=== PATIENT | female | born 1965 | race Caucasian/White ===

== ENCOUNTER 2018-06-06 13:15 | Inpatient (IN) ==
[2018-06-06] MEDS ORDERED: NS 1,000 ML IV ONE ×2 (14:43→19:34)
--- NOTE | 2018-06-06 15:05 | PROVIDER DOCUMENTATION ---
This chart was entered by Nash Schaefer Scribe, acting as scribe for Tomasa Pickard CRNP. HPI-Abdominal Pain/GI Problem - General Chief Complaint: Abdominal Pain Stated Complaint: ABDOMEN Time Seen by Provider: 06/06/18 14:31 Source: patient Allergies/Adverse Reactions: Patient Allergies Allergy/AdvReac Type Severity Reaction Status Date / Time acetaminophen [From Lortab] Allergy HIVES Verified 06/04/18 16:34 amoxicillin Allergy RASH Verified 06/04/18 16:34 cephalexin monohydrate * Allergy RASH Verified 06/04/18 16:34 [From Keflex] clarithromycin [From Biaxin] Allergy HIVES Verified 06/04/18 16:34 hydrocodone bitartrate * Allergy HIVES Verified 06/04/18 16:34 [From Lortab] ibuprofen [From Motrin] Allergy RASH Verified 06/04/18 16:34 Latex, Natural Rubber Allergy RASH Verified 06/04/18 16:34 lidocaine HCl * Allergy SWELLING Verified 06/04/18 16:34 [From Xylocaine] loracarbef [From Lorabid] Allergy RASH Verified 06/04/18 16:34 risperidone [From Risperdal] Allergy SHORTNESS Verified 06/04/18 16:34 OF BREATH fentanyl AdvReac NAUSEA/VOMI Verified 06/04/18 16:34 TING Home Medications: Home Medication List Medication Instructions Recorded Confirmed Last Taken Type Alprazolam [Xanax] 2 mg PO TID 08/25/15 06/04/18 06/04/18 12:00 History Ondansetron HCl [Zofran] 4 mg PO Q4H PRN PRN #10 tablet 10/18/17 06/04/18 06/03/18 Rx Docusate Sodium 100 mg PO QHS 06/04/18 06/04/18 06/03/18 History Doxycycline Hyclate 100 mg PO QHS 06/04/18 06/04/18 06/03/18 History Gabapentin 100 mg PO TID 06/04/18 06/04/18 06/04/18 12:00 History Hydromorphone [Dilaudid] 2 mg PO Q3H PRN PRN 3 Days #20 tab 06/04/18 Unknown Rx Morphine Sulfate 15 mg PO BID 06/04/18 06/04/18 06/04/18 10:00 History Prochlorperazine [Compazine] 10 mg PO Q4HR 06/04/18 06/04/18 06/04/18 History Promethazine [Phenergan] 25 mg PO Q6H PRN PRN 06/04/18 06/04/18 06/03/18 History - History of Present Illness-ABD Nature of Presenting Problems: Pt is a 52 y/o F presents to the ED from Dr Sanders office with abdominal pain with hx of colon cancer. Pt reports her last BM was yesterday but it was diarrhea. Abdominal Pain Onset Location: reports: generalized abdomen Pain Radiation: reports: no radiation Quality of Pain: reports: aching Severity in ED: reports: severe Onset/Duration: reports: 3 days ago Timing: reports: still present, getting worse Exposure to sick contacts?: No Modifying Factors: improves with: nothing Associated Symptoms: reports: nausea, vomiting. denies: fever/chills Last BM: 24 hours ago Dark Stools Present?: reports: none noticed Rectal Bleeding: reports: none # of Diarrhea Episodes: 1 Review of Systems - Adult - REVIEW OF SYSTEMS - ADULT Constitutional: denies: chills, fever Eyes: reports: no symptoms reported Ears, Nose, Mouth & Throat: denies: ear pain, throat pain Cardiovascular: reports: no symptoms reported Respiratory: denies: cough, shortness of breath Gastrointestinal: reports: abdominal pain, diarrhea, nausea, vomiting Genitourinary: denies: dysuria, discharge Musculoskeletal: denies: back pain, neck pain Integumentary: reports: no symptoms reported Neurological: denies: dizziness/vertigo, headache/migraines Psychiatric: reports: no symptoms reported Endocrine: reports: no symptoms reported Hematologic/Lymphatic: reports: no symptoms reported Allergic/Immunologic: reports: no symptoms reported All Other Systems: Reviewed and Negative Past History - Adult - PAST MEDICAL HISTORY-ADULT Review of Records: reports: Old Records Reviewed, Nursing Assessment Review, Medications Reviewed Major Childhood Illnesses: reports: denies history Cardiovascular: reports: denies history, HTN Respiratory: reports: denies history Gastrointestinal: reports: denies history Obstetrical/Gynecological: reports: denies history Genitourinary: reports: denies history Musculoskeletal: reports: denies history Neurological: reports: denies history Psychiatric: reports: bipolar Endocrine/Immune: reports: denies history, thyroid disorder Other Conditions: reports: other cancer (colon) - PRIOR SURGERIES/PROCEDURES Surgical/Procedure History: reports: BTL - IMMUNIZATION STATUS Childhood Immunizations: See Nurse Assessment Flu Vaccine: See Nurse Assessment - FAMILY HISTORY Family History: reviewed, not pertinent - SOCIAL HISTORY Smoking: cigarettes Substance Use: marijuana Living Situation: family Physical Exam-General - PHYSICAL EXAM-ADULT Initial Vital Signs Reviewed: Yes - CONSTITUTIONAL General Appearance: appears well, alert, no apparent distress - EYES Eyes: PERRL/EOMI, pink conjunctivae - HEAD, EARS, NOSE, MOUTH & THROAT HENMT: moist mucous membranes, normal ENT inspection, pharynx normal - NECK Neck: non-tender, full range of motion, supple, normal inspection - RESPIRATORY Respiratory: lungs clear, normal breath sounds - CARDIOVASCULAR Cardiovascular: normal peripheral pulses, regular rate, rhythm - GASTROINTESTINAL (ABDOMEN) Abdominal Exam: guarding, tenderness. negative: normal bowel sounds (absent) - MUSCULOSKELETAL Back Exam: normal inspection, no CVA tenderness, no vertebral tenderness Extremity: normal range of motion, non-tender, normal gait, normal inspection - SKIN Integumentary: normal color, normal turgor, warm/dry - PSYCHIATRIC Psych/Mental Status: normal mood/affect, normal thought content, normal thought process, oriented x 3 Progress - PLAN OF CARE/RESULTS Progress/Plan/Lab Results: Vital Signs - 8 hr 06/06/18 13:35 06/06/18 13:55 Temperature 98.2 F Pulse Rate 100 H 88 Respiratory Rate 20 16 Blood Pressure 124/85 110/77 O2 Sat by Pulse Oximetry 99 100 Laboratory Tests 06/06/18 06/06/18 06/06/18 15:02 15:02 15:02 WBC 2.90 L RBC 3.55 L Hgb 11.1 L D Hct 34.3 L MCV 96.6 MCH 31.3 H MCHC 32.4 L RDW Std Deviation 16.8 H Plt Count 98 L MPV 12.0 H Immature Gran % (Auto) 0.0 Neut % (Auto) 46.9 Lymph % (Auto) 45.5 Barton % (Auto) 6.6 Eos % (Auto) 0.7 Baso % (Auto) 0.3 Immature Gran # (Auto) 0.00 Neut # (Auto) 1.36 L Lymph # (Auto) 1.32 Barton # (Auto) 0.19 Eos # (Auto) 0.02 Baso # (Auto) 0.01 Sodium 133 L Potassium 3.2 L D Chloride 98 Carbon Dioxide 21 L Anion Gap 14 BUN 7 L Creatinine 0.2 L Estimated GFR/1.73 m2 > 60 BUN/Creatinine Ratio 35 Glucose 86 Calculated Osmolality 264 Calcium 8.2 L Total Bilirubin 0.29 AST 22 ALT 13 Alkaline Phosphatase 71 Total Protein 5.7 L Albumin 2.9 L Globulin 2.8 Albumin/Globulin Ratio 1.0 Lipase 13 Urine Source CLEAN CATCH Urine Color YELLOW Urine Turbidity HAZY Urine pH 7.0 Ur Specific Nunda 1.015 Urine Protein 50 A Ur Glucose (Stick) NEGATIVE Ur Ketones (Stick) 60 A Urine Blood NEGATIVE Urine Nitrite NEGATIVE Urine Bilirubin NEGATIVE Urobilinogen Dipstick NORMAL Urine Leukocytes SMALL A Urine WBC (Auto) <10 Urine RBC (Auto) <10 U Epithel Cells (Auto) >10 A Urine Bacteria (Auto) 1+ Urine Crystals Not Reportable Small Round Cells Not Reportable Urine Casts GRANULAR PRESENT Urine Yeast-like Cells Not Reportable Discussed results and plan of care with patient. Patient agrees with plan and verbalizes understanding. Result Diagrams: 06/06/18 15:02 06/06/18 15:02 - CT/MRI 1 CT Study: Abdomen, Pelvis ([facility] [address], [address], [place] [address] Department of Imaging Patient: ELIZABETH FAJARDO Date: 06/06/18MR#: [id number] : 1965ADM Status: REG [facility]#: [id number] Age/Sex: 52/FRoom/Bed: Loc: ED Ordering Physician: Tomasa Pickard Family Physician: Nikkie Nicholson MD Reason for Procedure: abd pain Signed EXAM: CT ABD/PELVIS W/IV CONT ONLY HISTORY: abd pain TECHNIQUE: CT abdomen and pelvis with intravenous contrast. COMPARISON: 09/30/2017 FINDINGS: There is a small amount of ascites about the liver and spleen. No focal hepatic or splenic abnormality. The gallbladder has been removed. Normal pancreas, adrenal glands, and kidneys. No hydronephrosis. No aortic aneurysm. There is prominent omental thickening on the current exam which was not previously present. There are multiple fluid-filled loops of small bowel and colon. No enlarged lymph nodes. The uterus has been removed. No pelvic mass. The urinary bladder is m oderately distended and is normal. Small to moderate amount of free fluid is present in the pelvis. IMPRESSION: 1.Worsening omental thickening with worsening small volume amount of ascites concerning for malignancy. 2.Ileus versus partial obstruction 3.Cholecystectomy 4.Hysterectomy This exam was performed using automated exposure control, adjustment of mA or kV according to patient size, and/or use of iterative reconstruction technique. Electronically signed by Elmer Britton 06/06/2018 5:05 PM 06/06/18 1705 Interpreting Physician: Elmer Britton MD Dictated Date/Time: 06/06/18 1700 cc: Tomasa Pickard; Nikkie Nicholson MD) CT Results: See note - CONSULTS/PCP/HOSPITALIST Notification #1 *Consult/PCP/Hospitalist*: Dr. Hopper Time Discussed: 17:17 Reason/Comments: Consult Consult Disposition: other (See if the patient wants to see Dr. Almeida again but if it doesn't matter he will be happy to see her in the hospital.) #2 Consult: Shellie Dash Time Discussed: 17:22 Reason/Comments: Admission Consult Disposition: Will see in ED, Admit Departure - Departure Date of Disposition Decision: 06/06/18 Time of Disposition Decision: 17:15 DIAGNOSIS: Abdominal pain Qualifiers: Abdominal location: generalized Qualified Code(s): R10.84 - Generalized abdo margareth pain Disposition: ADMITTED INPATIENT 09 Certified Medical Emergency: Emergent Condition: Stable Referrals and Follow-Ups: Nikkie Nicholson MD [Primary Care Provider] - - Critical Care Note This patient required my direct & personal management of CC.: No Attestation - Physician/ EVELIA Attestation Patient care was provided by Advanced Practice Provider:: Yes Advanced Practice Provider:: Tomasa Pickard Advanced Practice Provider documentation review:: The Mid-level provider documentation, treatment plan and medical decision making was reviewed by the physician who agrees with all treatment and medical decision making by the MLP. The physician spent face to face time with patient:: No Advanced Practice Provider documentation review:: Supervising physician onsite and consulted in the evaluation and care of this patient. The physician did not have a face to face encounter with the patient. This chart was documented by the indicated scribe, (Nash Schaefer Scribe) and accurately reflects the services I performed and decisions made by , Tomasa Pickard CRNP, as attested by the provider's signature.
[2018-06-06 15:12] LABS: URINE SOURCE CLEAN CATCH
[2018-06-06 15:19] LABS: BASO# 0.01 X1000 (0.0-0.2); BASO% 0.3 % (0.0-0.8); EOS# 0.02 X1000 (0.0-0.7); EOS% 0.7 % (0.0-10.0); HEMATOCRIT 34.3 % (37.0-47.0); HEMOGLOBIN 11.1 g/dL (12.0-16.0); LYMPH# 1.32 X1000 (1.2-3.4); LYMPH% 45.5 % (20.5-51.1); MCH 31.3 PG (27-31); MCHC 32.4 g/dL (33-37); MCV 96.6 FL (81-99); MONO# 0.19 X1000 (0.11-0.59); MONO% 6.6 % (1.7-9.3); NEUT# 1.36 X1000 (1.4-6.5); NEUT% 46.9 % (42.2-75.2); PLT 98 X1000 (130-400); RBC 3.55 XMIL (4.2-5.4); RDW 16.8 % (11.5-14.5)
[2018-06-06 15:28] LABS: BILIRUBIN URINE NEGATIVE (NEGATIVE); BLOOD URINE NEGATIVE (NEGATIVE); COLOR YELLOW; GLUCOSE URINE NEGATIVE (NEGATIVE); KETONE URINE 60 mg/dL (NEGATIVE); LEUKOCYTES URINE SMALL (NEGATIVE); NITRITE URINE NEGATIVE (NEGATIVE); PROTEIN URINE 50 mg/dL (NEGATIVE); SP GRAVITY URINE 1.015; TURBIDITY URINE HAZY (CLEAR); UR EPITHELIAL CELLS >10 /HPF (<10); URINE BACTERIA 1+ /HPF; URINE RBC <10 /HPF (<10); URINE WBC <10 /HPF (<10); UROBILINOGEN URINE NORMAL (NORMAL)
[2018-06-06 15:31] LABS: URINE CASTS GRANULAR PRESENT
[2018-06-06 15:37] LABS: AGAP 14; ALBUMIN 2.9 g/dL (3.5-5.0); ALKALINE PHOSPHATASE 71 U/L (32-104); BUN 7 mg/dL (8-22); CALCIUM 8.2 mg/dL (8.8-10.2); CHLORIDE 98 mmol/L (98-107); COSMO 264; CREATININE 0.2 mg/dL (0.5-0.9); ESTIMATED GFR > 60; GLUCOSE 86 mg/dL (70-104); GOT 22 U/L (10-30); GPT 13 U/L (10-36); LIPASE 13 U/L (13-60); POTASSIUM 3.2 mmol/L (3.5-5.1); SODIUM 133 mmol/L (136-145); TCO2 21 mmol/L (25-35); TOTAL BILIRUBIN 0.29 mg/dL (0.20-1.00); TOTAL PROTEIN 5.7 g/dL (6.3-8.3)
[2018-06-06] MEDS ORDERED: ZOFRAN IV ONE (16:44)
[2018-06-06] MEDS ORDERED: DILAUDID IV ONE ×2 (16:44→18:11)
--- NOTE | 2018-06-06 17:08 | Diag Imaging Result Doc PS360 ---
EXAM: CT ABD/PELVIS W/IV CONT ONLY HISTORY: abd pain TECHNIQUE: CT abdomen and pelvis with intravenous contrast. COMPARISON: 09/30/2017 FINDINGS: There is a small amount of ascites about the liver and spleen. No focal hepatic or splenic abnormality. The gallbladder has been removed. Normal pancreas, adrenal glands, and kidneys. No hydronephrosis. No aortic aneurysm. There is prominent omental thickening on the current exam which was not previously present. There are multiple fluid-filled loops of small bowel and colon. No enlarged lymph nodes. The uterus has been removed. No pelvic mass. The urinary bladder is moderately distended and is normal. Small to moderate amount of free fluid is present in the pelvis. IMPRESSION: 1.Worsening omental thickening with worsening small volume amount of ascites concerning for malignancy. 2.Ileus versus partial obstruction 3.Cholecystectomy 4.Hysterectomy This exam was performed using automated exposure control, adjustment of mA or kV according to patient size, and/or use of iterative reconstruction technique. Electronically signed by Elmer Britton 06/06/2018 5:05 PM
[2018-06-06] MEDS ORDERED: PROTONIX IV ONE (18:11)
[2018-06-06] MEDS ORDERED: SODIUM CHLORIDE 0.9% INJ ONE ×2 (18:11→23:48)
[2018-06-06] MEDS ORDERED: POTASSIUM CHLORIDE 20 MEQ/SWI 20 MEQ/100 ML IVPB IV ONE (19:34)
--- NOTE | 2018-06-06 20:08 | HISTORY AND PHYSICAL ---
PRIMARY CARE PROVIDER: Ronny Kee MD TRAINS SERVICE CONDUCTOR: Low Ojeda MD GENERAL SURGEON: Theo Florian MD CHIEF COMPLAINT: Abdominal pain, nausea and vomiting. HISTORY OF PRESENT ILLNESS: Ms. Garcia is a 52-year-old female who carries a past medical history of bipolar disorder, prediabetes, irritable bowel syndrome, hypothyroidism and hyperlipidemia. Diagnosed with a right colon cancer with multiple positive nodes back in 09/2017. She underwent an exploratory laparotomy with a right colectomy, with ileotransverse colostomy with Dr. Florian. She has been undergoing chemotherapy with Dr. Ojeda. Her last chemotherapy was this past Tuesday. She reports that she has been having chronic abdominal pain; however, it has worsened over the last few weeks. She went to see Dr. Ojeda today. She was referred to the ER. She was found on CT imaging to have worsening omental thickening and worsening small-volume amount of ascites, concerning for malignancy; ileus versus partial small-bowel obstruction; cholecystectomy and hysterectomy. She was found have a white count of 2, hemoglobin and hematocrit of 11 and 34, and a platelet count of 98,000. Sodium 133, potassium 3.2, BUN 7, creatinine 0.2. She will be admitted for ileus versus partial small bowel obstruction. Dr. Florian will see her in the a.m. as well as Dr. Ojeda. We will continue on IV fluids. Continue NPO. Pain and nausea and vomiting management. PAST MEDICAL HISTORY: 1. Right colon cancer with multiple positive nodes. 2. Bipolar disorder. 3. Prediabetes. 4. Irritable bowel syndrome. 5. Hypothyroidism. 6. Hyperlipidemia. PAST SURGICAL HISTORY: Exploratory laparotomy, right colectomy with ileotransverse colostomy, appendectomy, cholecystectomy, hysterectomy. SOCIAL HISTORY: She lives with her boyfriend. She smokes 1 pack of cigarettes per day. Occasional alcohol. Daily marijuana user, only in small amounts. She has not worked in the last 15 years. She is disabled from her bipolar disorder. FAMILY HISTORY: Father at the age of 42 from myocardial infarction. Mother had a valve replacement. ALLERGIES: [place] causes hives. Amoxicillin causes a rash. Keflex causes a rash. Biaxin causes hives. Motrin, unknown. Latex, rash. Xylocaine, swelling. Lortab, rash. MEDICATIONS: Home medications have not been reconciled. REVIEW OF SYSTEMS: A 14-point review of systems was completed and negative except for those mentioned in the HPI. The patient denies any shortness of breath, chest pain, palpitations, fever or chills. PHYSICAL EXAMINATION: VITAL SIGNS: Temperature is 98.2 degrees, heart rate 82, respirations 15, blood pressure 117/77, O2 is 97% on room air. GENERAL: Ms. Garcia is a pleasant 52-year-old female who is lying on the stretcher in the ER. Family member at bedside. No acute distress. HEENT: Atraumatic, normocephalic. PERRL. NECK: Supple. Trachea midline. CV: S1, S2 appreciated. No murmurs, gallops or rubs noted. No JVD. No lower extremity edema. PULMONARY: Bilateral breath sounds, clear. No wheezing, no rales or rhonchi noted. ABDOMEN: Soft but tender throughout. Hypoactive bowel sounds. EXTREMITIES: No clubbing, no cyanosis. NEUROLOGIC: Alert and oriented x4. Follows commands. Moves all extremities. DIAGNOSTIC DATA: Abdomen and pelvis CT: Worsening omental thickening with worsening small-volume amount of ascites concerning for malignancy; ileus versus partial obstruction; cholecystectomy; hysterectomy. LABORATORY DATA: White count 2.90, hemoglobin and hematocrit 11 and 43, platelet count is 98,000. Sodium 133, potassium 3.2, BUN 7, creatinine 0.2, blood glucose is 86, albumin 2.9. Urinalysis is negative for nitrites. ASSESSMENT AND PLAN: 1. Ileus versus partial small-bowel obstruction, with abdominal pain, mild nausea and vomiting. The patient will be provided with antiemetics and pain medication. We will make her NPO, continue with aggressive intravenous fluid hydration. Consult Dr. Florian in the a.m. Emergency department physician already talked to Dr. Hopper. The patient has seen Dr. Florian in the past and would like to continue for him to follow her. She does not require an nasogastric tube at this time. She is well controlled with antiemetics. 2. Right colon cancer, on chemotherapy. We will place her in a private room. She is still currently receiving chemotherapy. Her last dose was last Tuesday. We will make Dr. Ojeda aware that she was admitted to the hospital. Continue to follow his recommendations. She does have a low white count, however, she is not febrile or appear to have any active infections. We will continue to monitor. 3. Mild hyponatremia. We will continue with intravenous fluids. 4. Hypokalemia. We will attempt to replenish intravenously. Again, the patient is NPO. Continue to monitor. 5. Clinical dehydration. Again, we will continue with aggressive hydration. 6. Bipolar disorder. We will restart home medications when she is taking in oral. 7. Irritable bowel syndrome. Aware. 8. Hypothyroidism. Hopefully we can resume her Synthroid soon. 9. Hyperlipidemia. 10. Hypertension. 11. Chronic tobacco and marijuana use in the past. The patient will need continued education on cessation daily. 12. Chronic abdominal pain. Aware. We will continue with intravenous Dilaudid until she is taking p.o. 13. Further recommendation to follow physician evaluation, laboratory and diagnostic data. Dictated by MARISSA West for Ronni Dash MD cc: MD Low Garcia MD Martha Read Agree with above. the following is my own face to face assessment. Patient with acute on chronic abd pain. found to have SBO and worsening omental malignancy on scan here. abdomen with mild diffuse tenderness and bowel sounds hypoactive on exam. will treat conservatively and monitor. MTDD
[2018-06-06] MEDS: ZOFRAN IV PRN (22:13)
[2018-06-06] MEDS: DILAUDID IV PRN (22:14)
[2018-06-06] MEDS: BENADRYL IV PRN (23:40)
[2018-06-06] MEDS ORDERED: PHENERGAN IV ONE (23:48)
[2018-06-07] MEDS: ZOFRAN IV PRN (05:45)
[2018-06-07 06:59] LABS: BASO# 0.01 X1000 (0.0-0.2); BASO% 0.3 % (0.0-0.8); EOS# 0.05 X1000 (0.0-0.7); EOS% 1.6 % (0.0-10.0); HEMATOCRIT 36.8 % (37.0-47.0); HEMOGLOBIN 11.7 g/dL (12.0-16.0); LYMPH# 1.17 X1000 (1.2-3.4); LYMPH% 37.9 % (20.5-51.1); MCHC 31.8 g/dL (33-37); MCV 97.4 FL (81-99); MONO# 0.22 X1000 (0.11-0.59); MONO% 7.1 % (1.7-9.3); MPV 11.8 FL (7.4-10.4); NEUT# 1.64 X1000 (1.4-6.5); NEUT% 53.1 % (42.2-75.2); PLT 104 X1000 (130-400); RBC 3.78 XMIL (4.2-5.4); RDW 16.7 % (11.5-14.5); WBC 3.09 X1000 (4.8-10.8)
--- NOTE | 2018-06-07 07:09 | Diag Imaging Result Doc PS360 ---
EXAM: CHEST-PORTABLE 06/07/2018 HISTORY: follow up TECHNIQUE: AP portable at 0553 COMMENT: There is less apparent atelectasis in the left lower lobe than on 06/04/2018. Otherwise there has been no significant change in the appearance of the chest. IMPRESSION: Improved left lower lobe atelectasis. Electronically signed by Marc Chowdhury 06/07/2018 7:07 AM
[2018-06-07 07:17] LABS: AGAP 16; ALB/GLOB RATIO 1.3; ALKALINE PHOSPHATASE 71 U/L (32-104); BUN 4 mg/dL (8-22); CALCIUM 8.3 mg/dL (8.8-10.2); CHLORIDE 102 mmol/L (98-107); COSMO 267; CREATININE 0.4 mg/dL (0.5-0.9); ESTIMATED GFR > 60; GLUCOSE 64 mg/dL (70-104); GOT 18 U/L (10-30); GPT 11 U/L (10-36); MAGNESIUM 1.6 mg/dL (1.5-2.7); POTASSIUM 3.4 mmol/L (3.5-5.1); SODIUM 136 mmol/L (136-145); TCO2 18 mmol/L (25-35); TOTAL BILIRUBIN 0.34 mg/dL (0.20-1.00); TOTAL PROTEIN 5.3 g/dL (6.3-8.3)
--- NOTE | 2018-06-07 07:20 | Diag Imaging Result Doc PS360 ---
EXAM: KUB ABDOMEN 06/07/2018 HISTORY: follow up SBO vs illeus TECHNIQUE: KUB COMMENT: There are distended small bowel loops in the left upper quadrant. There is very little visible colonic gas in the stomach is not distended. There is gas in the rectum versus the urinary bladder. This was not the case on the previous study of 06/04/2018. There is a neurostimulator seen over the right pelvis. The lead is on the left side of the sacrum. There is no evidence of acute bony abnormality. IMPRESSION: Localized ileus in the left upper quadrant versus early small bowel obstruction. Electronically signed by Marc Chowdhury 06/07/2018 7:18 AM
[2018-06-07] MEDS: DILAUDID IV PRN (07:30)
[2018-06-07] MEDS ORDERED: DESYREL PO PRN (10:18)
[2018-06-07] MEDS: COMPAZINE IV PRN ×2 (11:37→20:18)
[2018-06-07] MEDS ORDERED: SODIUM CHLORIDE 0.9% INJ PRN (13:10)
[2018-06-07] MEDS ORDERED: ZOFRAN IV PRN (13:10)
[2018-06-07] MEDS ORDERED: BENADRYL IV PRN (13:10)
[2018-06-07] MEDS ORDERED: NARCAN IV PRN ×2 (13:10→13:18)
[2018-06-07] MEDS: POTASSIUM CHLORIDE 20 MEQ/SWI 20 MEQ/100 ML IVPB IV SCH ×2 (14:01→17:37)
--- NOTE | 2018-06-07 14:04 | HEMO/ONC CONSULTATION ---
DATE: 06/07/2018 ADMITTING PHYSICIAN: Dr. Ronni Dash. REQUESTING PHYSICIAN: Dr. Ronni Dash. We appreciate this consult. CHIEF COMPLAINT: Colon cancer. HISTORY OF PRESENT ILLNESS: Ms. Emily Garcia is a very pleasant, 52-year-old female well known to Dr. Ojeda with a history of metastatic colon cancer with progression of disease. She is currently on irinotecan and Erbitux. Her next treatment will be cycle 3, dose 1, due on June 13. The patient has recently been experiencing nausea, vomiting, and abdominal pain. She was seen in clinic the day of admission secondary to acute abdominal pain with a palpable mass in the periumbilical region. The patient had been experiencing 2 to 3 days of nausea, vomiting, an inability to keep anything down, and a lack of being able to pass gas or bowel movement. Upon physical examination, the patient did have positive rebound and guarding with exceptional periumbilical tenderness. Again, palpable mass was observed approximately 1 to 2 cm in diameter, questionably related to a periumbilical hernia with incarcerated bowel. The patient was highly encouraged to present to [facility] Emergency Department. Report was called to the emergency department RN with a CT of the abdomen and pelvis recommended stat. CT of the abdomen and pelvis revealed worsening omental thickening with worsening small volume amount of ascites concerning for malignancy, as well as ileus versus partial obstruction. The patient was admitted for the same. We are consulted as the patient is well known to us. PAST MEDICAL HISTORY: 1. Metastatic colon adenocarcinoma. 2. Bipolar disease. 3. Irritable bowel syndrome. 4. Hypothyroidism. 5. Hyperlipidemia. PAST SURGICAL HISTORY: 1. Exploratory laparotomy. 2. Right colectomy with ileotransverse colostomy. 3. Appendectomy. 4. Cholecystectomy. 5. Hysterectomy. SOCIAL HISTORY: The patient smokes 1 pack of cigarettes daily and drinks alcohol occasionally. She smokes marijuana daily. She uses no other illicit drugs. FAMILY HISTORY: Negative for hematologic or oncologic disease. MEDICATIONS ON ADMISSION: 1. Levothyroxine. 2. EMLA cream. 3. Alprazolam. 4. Compazine. 5. Zofran. 6. Promethazine. 7. [place] patch. 8. Neurontin. 9. [place]. 10. Clindamycin. 11. Phenergan. 12. MS Contin. ALLERGIES: Amoxicillin, Biaxin, fentanyl, latex, Lorabid, Lorcet, Lortab, Risperdal, and Xylocaine. REVIEW OF SYSTEMS: A 14 point review of systems was obtained and is negative except as mentioned in the HPI. PHYSICAL EXAMINATION: General: Ms. Garcia is a very pleasant, 52-year-old female lying supine in bed, in no immediate distress. Vital Signs: Temperature 97.8, blood pressure 101/68, heart rate 79, respirations 14, O2 saturation 97% on room air. HEENT: Normocephalic, atraumatic. Mucous membranes are pink and moist. Sclerae anicteric. Extraocular movements intact. Neck: Supple. Lungs: Clear to auscultation bilaterally. Chest expansion is equal bilaterally. CV: S1 and S2 are heard. No murmurs, rubs, or gallops. Abdomen: Nondistended. Tender to palpation in the periumbilical region. The patient does have a 0.5 cm palpable mass in the periumbilical region. No rebound or guarding noted today. Bowel sounds are significantly decreased. Extremities: Without clubbing, cyanosis, or edema. Dermatologic: No rashes, bruises, or lesions. Neurologic: The patient is awake, alert, and oriented x3. She has no focal deficits. LABORATORY DATA: Hemoglobin is 11.7, hematocrit 36.8, white blood cell count 3.09, platelets 104,000, ANC 1.64. Sodium 136, potassium 3.4, chloride 102, CO2 is 18, BUN is 4, creatinine 0.4, glucose 64, calcium 8.3, magnesium 1.6. LFTs are within normal limits. Lipase is 13. IMAGING REPORTS: Chest x-ray reveals improved left lower lobe atelectasis. CT of the abdomen and pelvis reveals worsening omental thickening with worsening small volume amounts of ascites concerning for malignancy, as well as ileus versus partial obstruction. ASSESSMENT AND PLAN: 1. Metastatic colon cancer with progression, currently on irinotecan/Erbitux. Cycle 3, day 1 is due June 13. We will hold further chemotherapy until the patient's acute illness resolves. 2. Ileus versus partial small bowel obstruction with abdominal pain, nausea, and vomiting. We would continue antiemetics and pain control. Additionally, the patient is on intravenous fluids only. Dr. Florian has been consulted for surgical evaluation. 3. Mild hyponatremia. Currently on intravenous fluids. 4. Hypokalemia. The patient is being repleted intravenously. Would continue to monitor potassium. 5. Clinical dehydration. Again, the patient is on aggressive hydration at this time. 6. Bipolar disorder. The patient will continue current medications. 7. We will follow along with you and make further recommendations pending outcomes. The above reflects the history, exam, assessment, and plan of Dr. Cummings. Dictated by MARISSA Corcoran for Ayaka Cummings MD cc: MARISSA Corcoran MD I have seen and examined the patient and the above note reflects my history, assessment and plan. Ayaka GRANADO
[2018-06-07] MEDS: NEURONTIN PO SCH ×2 (14:10→17:37)
[2018-06-07] MEDS ORDERED: NS 500 ML ONE (15:41)
[2018-06-07] MEDS: DILAUDID PCA VIAL IV PRN (15:46)
--- NOTE | 2018-06-07 16:42 | PROGRESS NOTE ---
DATE: 06/07/2018 INTERVAL HISTORY: Patient still with nausea but no vomiting. Still with some abdominal discomfort which is reasonably well controlled. No acute events overnight. No new complaints. I did discuss the possibility of an NG tube and patient was opposed to that unless absolutely necessary. REVIEW OF SYSTEMS: Twelve point review of systems negative except as per interval history. LABS: WBC 3.0, hemoglobin 11.7, hematocrit 36.8, platelets 104,000. Sodium 136, potassium 3.4, bicarb 18, BUN 4, creatinine 0.4, calcium 8.3. IMAGING: Abdominal x-ray still with localized ileus in left upper quadrant versus early small bowel obstruction. Chest x-ray with improved left lower lobe atelectasis. No other acute process. VITAL SIGNS: T-max 98.3 degrees, pulse 79, respirations 14, blood pressure 111/82, O2 saturation 98% on room air. PHYSICAL EXAMINATION: General: No acute distress. Vital signs: As above. HEENT: Normocephalic, atraumatic. Moist mucous membranes. No cervical adenopathy. Cardiovascular: Regular rate and rhythm. No murmurs, rubs, gallops. Pulmonary: Clear to auscultation bilaterally. No wheezing, rales, or rhonchi noted. Abdomen: Soft. Mild diffuse tenderness, somewhat improved. Bowel sounds remain hypoactive but present. Extremities: Peripheral pulses intact. No clubbing, cyanosis, edema. Neurologic: Cranial nerves grossly intact. No focal deficits identified. Psychiatric: Normal mood and affect. Awake, alert, oriented x3. Skin: No new rashes or lesions identified. ASSESSMENT AND PLAN: 1. Ileus versus partial small bowel obstruction. Still with nausea but no further vomiting. Minimal abdominal tenderness appears to be improving. The patient reports some improvement in her abdominal discomfort. Question as to whether this may be related to the patient's previous abdominal surgeries versus worsening of her known colon cancer given thickening of the mesentery seen on initial CT. Does appear to be improving with conservative measures which we will continue. Surgery consulted on admission. 2. 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 Patient on chemotherapy as an outpatient with Dr. Ojeda. CT with mesenteric thickening suggestive of worsening malignancy based on previous CT from here. However, patient reports that her chemo was changed approximately 8 weeks ago because of known worsening, so uncertain if this is further treatment failure or if we simply do not have the most recent CT for comparison. Awaiting further information from Oncology. 3. Hyponatremia. Improved with IV fluids. Continue to monitor. 4. Hypokalemia, somewhat improved. If repletion remains low we will replete further and monitor. 5. Pancytopenia, fairly mild and stable to improved today. Likely related to the patient's recent chemotherapy. 6. Dehydration. Improved with IV fluids. 7. Hypothyroidism. Continue home Synthroid. 8. Hypertension. Hold home medications for now and monitor. 9. Tobacco abuse. Patient counseled on cessation. 10. Chronic abdominal pain. Will restart patient's home morphine and monitor. 11. Anxiety. Continue home Xanax p.r.n. 12. Deep vein thrombosis prophylaxis. [facility]
[2018-06-08] MEDS: COMPAZINE IV PRN (04:54)
[2018-06-08 07:21] LABS: BASO# 0.01 X1000 (0.0-0.2); BASO% 0.4 % (0.0-0.8); EOS# 0.04 X1000 (0.0-0.7); EOS% 1.8 % (0.0-10.0); HEMATOCRIT 31.7 % (37.0-47.0); HEMOGLOBIN 10.1 g/dL (12.0-16.0); LYMPH# 1.06 X1000 (1.2-3.4); LYMPH% 47.3 % (20.5-51.1); MCHC 31.9 g/dL (33-37); MCV 97.2 FL (81-99); MONO# 0.24 X1000 (0.11-0.59); MONO% 10.7 % (1.7-9.3); MPV 12.1 FL (7.4-10.4); NEUT# 0.89 X1000 (1.4-6.5); NEUT% 39.8 % (42.2-75.2); PLT 97 X1000 (130-400); RBC 3.26 XMIL (4.2-5.4); RDW 16.5 % (11.5-14.5); WBC 2.24 X1000 (4.8-10.8)
[2018-06-08 07:37] LABS: AGAP 13; BUN 2 mg/dL (8-22); CALCIUM 8.3 mg/dL (8.8-10.2); CHLORIDE 102 mmol/L (98-107); COSMO 269; CREATININE 0.3 mg/dL (0.5-0.9); ESTIMATED GFR > 60; GLUCOSE 74 mg/dL (70-104); POTASSIUM 3.2 mmol/L (3.5-5.1); SODIUM 137 mmol/L (136-145); TCO2 22 mmol/L (25-35)
--- NOTE | 2018-06-08 08:33 | Diag Imaging Result Doc PS360 ---
FLAT/UPRIGHT ABD/1 VIEW CHEST - 06/08/2018 INDICATION: metastatic colon ca TECHNIQUE: COMPARISON: 06/07/2018 FINDINGS: The chest remains clear. Stable right chest port. There has been decrease in the amount of gas in the abdomen which is indeterminate. No definite free air. IMPRESSION: Nonspecific findings. Electronically signed by Erick Gil 06/08/2018 8:31 AM
[2018-06-08] MEDS ORDERED: POTASSIUM CHLORIDE 60 MEQ in NS 500 ML IV ONE (08:44)
[2018-06-08] MEDS ORDERED: POTASSIUM CHLORIDE 30 MEQ in NS 1,000 ML IV SCH (09:00)
[2018-06-08 10:59] LABS: AGAP 14; BUN 2 mg/dL (8-22); CALCIUM 8.9 mg/dL (8.8-10.2); CHLORIDE 100 mmol/L (98-107); CHOLESTEROL 169 mg/dL (0-200); COSMO 266; CREATININE 0.4 mg/dL (0.5-0.9); ESTIMATED GFR > 60; GLUCOSE 94 mg/dL (70-104); GOT 21 U/L (10-30); MAGNESIUM 1.6 mg/dL (1.5-2.7); PHOSPHORUS 3.7 mg/dL (2.7-4.5); POTASSIUM 3.2 mmol/L (3.5-5.1); SODIUM 135 mmol/L (136-145); TCO2 21 mmol/L (25-35); TRIGLYCERIDES 159 mg/dL (35-135)
[2018-06-08 11:23] LABS: PREALBUMIN 5.9 mg/dL (20-40)
[2018-06-08] MEDS: NEURONTIN PO SCH ×3 (11:33→19:48)
[2018-06-08] MEDS: LIPOSYN 20% 500 ML IV SCH (13:59)
[2018-06-08] MEDS: [UNRECOGNIZED DRUG - OTHER] IV SCH ×9 (14:00)
[2018-06-08] MEDS: CALCIUM GLUCONATE IV SCH ×9 (14:00)
[2018-06-08] MEDS: AMINOSYN IV SCH ×9 (14:00)
--- NOTE | 2018-06-08 14:50 | PROGRESS NOTE ---
DATE: 06/08/2018 INTERVAL HISTORY: The patient's abdominal discomfort and nausea are somewhat improved, but still with occasional vomiting. Abdominal x-ray is only slightly improved. No other acute events. No complaints. REVIEW OF SYSTEMS: Twelve-point review of systems is negative, except as per interval history. LABORATORY DATA: WBC 2.2, hemoglobin 10.1, hematocrit 31.7, platelets 97,000. Sodium 135, potassium 3.2, bicarb 21, BUN 2, creatinine 0.4, glucose 94. IMAGING: Abdominal x-ray with less gas in the abdomen, no free air, appears somewhat improved to me. OBJECTIVE: Vital Signs: Temperature 98.6, pulse 94, respirations 20, blood pressure 117/79, O2 saturation 95% on room air. General: No acute distress. HEENT: Normocephalic, atraumatic. Moist mucous membranes. No cervical adenopathy. Cardiovascular: Regular rate and rhythm. No murmurs, rubs, or gallops. Pulmonary: Clear to auscultation bilaterally. No wheezing, rales, or rhonchi. Abdomen: Soft. Mild diffuse tenderness, again somewhat improved. Bowel sounds remain hypoactive, but present. Extremities: Peripheral pulses intact. No clubbing, cyanosis, or edema. Neurologic: Cranial nerves grossly intact. No focal deficits identified. Psychiatric: Normal mood and affect. Awake, alert, oriented x3. Skin: No new rashes or lesions identified. ASSESSMENT AND PLAN: 1. Ileus versus partial small bowel obstruction. Nausea and abdominal discomfort are somewhat improved, but still occasional vomiting. X-ray appears somewhat improved. Given intermittent ongoing vomiting, will not advance diet further at this time. Still some question as to whether this is ileus related to opiate use at home versus side effect of her worsening colon cancer/carcinomatosis. 2. 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 Patient on chemotherapy as outpatient with Dr. Ojeda. The patient's chemotherapy changed approximately 8 weeks ago because of worsening on scans. CT here with further worsening and mesenteric involvement. Oncology consult and following. 3. Hyponatremia, somewhat improved with intravenous fluids. Continue to monitor. 4. Hypokalemia. Potassium remains low despite repletion. Will further replete and monitor. 5. Pancytopenia, neutropenia. Slight improvement initially, but slightly worse again today. Neutropenia, moderate with ANC of not quite 1000. Only minimal decrease in blood counts. No signs of bleeding. Likely chemotherapy related. Continue to monitor. 6. Dehydration, resolved. 7. Hypothyroidism. Continue home Synthroid. 8. Hypertension. Hold home medications for now and monitor. 9. Tobacco abuse. Patient counseled on cessation. 10. Chronic abdominal pain. Patient's home morphine restarted. 11. Anxiety. Continue home Xanax as needed. 12. Deep vein thrombosis prophylaxis. Sequential compression devices.
[2018-06-08] MEDS: ZOFRAN IV PRN ×2 (14:53→21:56)
[2018-06-08] MEDS: XANAX PO PRN (21:53)
[2018-06-09 05:46] LABS: EOS# 0.05 X1000 (0.0-0.7); EOS% 1.8 % (0.0-10.0); HEMATOCRIT 34.1 % (37.0-47.0); HEMOGLOBIN 10.9 g/dL (12.0-16.0); LYMPH# 1.34 X1000 (1.2-3.4); LYMPH% 48.2 % (20.5-51.1); MCH 31.1 PG (27-31); MCV 97.4 FL (81-99); MONO# 0.24 X1000 (0.11-0.59); MONO% 8.6 % (1.7-9.3); NEUT# 1.15 X1000 (1.4-6.5); NEUT% 41.4 % (42.2-75.2); PLT 103 X1000 (130-400); RDW 16.6 % (11.5-14.5); WBC 2.78 X1000 (4.8-10.8)
[2018-06-09 06:09] LABS: MAGNESIUM 1.6 mg/dL (1.5-2.7)
[2018-06-09 06:23] LABS: AGAP 9; BUN 2 mg/dL (8-22); CALCIUM 8.3 mg/dL (8.8-10.2); CHLORIDE 101 mmol/L (98-107); COSMO 264; CREATININE 0.3 mg/dL (0.5-0.9); ESTIMATED GFR > 60; GLUCOSE 55 mg/dL (70-104); POTASSIUM 3.5 mmol/L (3.5-5.1); SODIUM 135 mmol/L (136-145); TCO2 25 mmol/L (25-35)
[2018-06-09] MEDS ORDERED: LR 1,000 ML IV SCH (06:30)
[2018-06-09] MEDS: [UNRECOGNIZED DRUG - OTHER] IV SCH ×18 (08:50→11:15)
[2018-06-09] MEDS: AMINOSYN IV SCH ×18 (08:50→11:15)
[2018-06-09] MEDS: CALCIUM GLUCONATE IV SCH ×18 (08:50→11:15)
[2018-06-09] MEDS: NEURONTIN PO SCH ×3 (08:52→16:17)
[2018-06-09] MEDS: LR 1,000 ML IV SCH (08:52)
[2018-06-09] MEDS: ZOFRAN IV PRN ×3 (08:57→20:11)
[2018-06-09] MEDS: DILAUDID PCA VIAL IV PRN (12:09)
[2018-06-09] MEDS: LIPOSYN 20% 500 ML IV SCH (13:36)
--- NOTE | 2018-06-09 14:03 | PROGRESS NOTE ---
DATE: 06/09/2018 INTERVAL HISTORY: The patient still has some nausea, but no further vomiting. Abdominal discomfort significantly improved. No other acute events. REVIEW OF SYSTEMS: Twelve point except as per interval history. LABORATORIES: WBC 2.7, hemoglobin 10.9, hematocrit 34.1, platelets 103,000. Sodium 135, potassium 3.5, BUN 2, creatinine 0.4, glucose 95. PHYSICAL EXAM: Vitals: T-max 98.8, pulse of 76, respirations 16, blood pressure 100/71, O2 saturation 96% on room air General: No acute distress. HEENT: Normocephalic, atraumatic. Moist mucous membranes. No cervical adenopathy. Cardiovascular: Regular rate and rhythm, no murmurs, rubs or gallops. Pulmonary: Clear to auscultation bilaterally. No wheezes, rales or rhonchi. Abdomen: Soft. Mild diffuse tenderness, nearly resolved. Bowel sounds less hypoactive than previous. Extremities: Peripheral pulses intact. No clubbing, cyanosis, or edema. Neurologic: Cranial nerves grossly intact. No focal deficits noted. Psychiatric: Normal mood and affect. Awake, alert, oriented times 3. Skin: No new rashes or lesions identified. ASSESSMENT/PLAN: 1. Ileus versus partial small bowel obstruction. Nausea and abdominal discomfort significantly improved. No further vomiting. Will await surgery opinion but suspect patient's diet can be advanced to full liquid. Started on TPN by surgery. Still some question as to whether this represents an opiate related ileus versus obstruction caused by worsening colon cancer/carcinomatosis. 2. Colon cancer with carcinomatosis. Patient on chemotherapy as an outpatient with Dr. Ojeda. Patient on second-line chemo because of worsening disease. CT here with further worsening and mesenteric involvement. Oncology consulted and following. 3. Hyponatremia, minimal at this point. Continue to monitor. Hypokalemia improved with repletion. Continue to monitor labs. 4. Pancytopenia, neutropenia, slight improvement today. Neutropenia, mild at this point. Likely chemotherapy related. Monitor labs, but no need for acute intervention at this time. 5. Dehydration, resolved with IV fluids. 6. Hypothyroidism, continue home Synthroid. 7. Tobacco abuse. Patient counseled on cessation. 8. Chronic abdominal pain. Continue home medications. Also on [employer] pump as per surgery. 9. Anxiety. Continue home Xanax as needed. 10. Deep vein thrombosis prophylaxis, SCDs.
[2018-06-09] MEDS ORDERED: PRILOSEC PO ONE (19:42)
[2018-06-09] MEDS: XANAX PO PRN (21:33)
[2018-06-10] MEDS: XANAX PO PRN ×2 (02:10→21:27)
[2018-06-10 06:06] LABS: BASO# 0.01 X1000 (0.0-0.2); BASO% 0.3 % (0.0-0.8); EOS# 0.05 X1000 (0.0-0.7); EOS% 1.5 % (0.0-10.0); HEMATOCRIT 35.7 % (37.0-47.0); HEMOGLOBIN 11.3 g/dL (12.0-16.0); LYMPH# 1.38 X1000 (1.2-3.4); LYMPH% 42.6 % (20.5-51.1); MCH 30.7 PG (27-31); MCHC 31.7 g/dL (33-37); MONO# 0.35 X1000 (0.11-0.59); MONO% 10.8 % (1.7-9.3); MPV 11.4 FL (7.4-10.4); NEUT# 1.45 X1000 (1.4-6.5); NEUT% 44.8 % (42.2-75.2); PLT 104 X1000 (130-400); RBC 3.68 XMIL (4.2-5.4); RDW 16.5 % (11.5-14.5); WBC 3.24 X1000 (4.8-10.8)
[2018-06-10] MEDS: CALCIUM GLUCONATE IV SCH ×9 (06:07)
[2018-06-10] MEDS: AMINOSYN IV SCH ×9 (06:07)
[2018-06-10] MEDS: [UNRECOGNIZED DRUG - OTHER] IV SCH ×9 (06:07)
[2018-06-10 06:27] LABS: MAGNESIUM 1.3 mg/dL (1.5-2.7)
[2018-06-10 06:32] LABS: AGAP 13; BUN 2 mg/dL (8-22); CHLORIDE 95 mmol/L (98-107); COSMO 266; CREATININE 0.3 mg/dL (0.5-0.9); ESTIMATED GFR > 60; GLUCOSE 90 mg/dL (70-104); SODIUM 135 mmol/L (136-145); TCO2 27 mmol/L (25-35)
--- NOTE | 2018-06-10 08:23 | Diag Imaging Result Doc PS360 ---
EXAM: KUB ABDOMEN INDICATION: SBO TECHNIQUE: One view COMPARISON: 06/08/2018 FINDINGS: There are unremarkable colonic bowel gas patterns, which are similar to the previous study. No small bowel gas is identified. There is no obstructive bowel pattern by plain radiograph. There is no evidence of large volume free abdominal gas. There is no evidence of organomegaly. IMPRESSION: Essentially unremarkable abdomen with no small bowel distention of identified. Electronically signed by Jake Veras 06/10/2018 8:21 AM
[2018-06-10] MEDS ORDERED: POTASSIUM CHLORIDE 60 MEQ in NS 500 ML IV ONE (09:06)
[2018-06-10] MEDS ORDERED: POTASSIUM CHLORIDE 20 MEQ/SWI 20 MEQ/100 ML IVPB IV SCH (10:00)
[2018-06-10] MEDS: NEURONTIN PO SCH ×3 (11:41→19:11)
[2018-06-10] MEDS ORDERED: MAGNESIUM SULFATE 2 GM/S.W.I. 2 GM/50 ML IVPB IV ONE (13:01)
--- NOTE | 2018-06-10 14:23 | PROGRESS NOTE ---
DATE: 06/10/2018 INTERVAL HISTORY: The patient is still with intermittent nausea, but no further vomiting. She appears to be tolerating full liquid diet fairly well. Abdominal pain largely resolved, aside from some reflux symptoms which she is complaining of some worsening of today. Afebrile. Denies fever, chills, chest pain, dyspnea, cough. Did have 1 bowel movement yesterday which was quite watery. REVIEW OF SYSTEMS: Twelve point review of systems negative, except as per interval history. LABS: WBC 3.24, hemoglobin 11.3, hematocrit 35.7, platelets 104, neutrophil percentage 44.8, ANC 1.45. Sodium 135, potassium 3, chloride 95. BUN 2, creatinine 0.3, glucose 90, magnesium 1.3, phosphatase 4. IMAGING: Abdominal x-ray unremarkable; appears to have resolution of small-bowel obstruction. VITALS: T-max 98.8 degrees, pulse 97, respirations 16, blood pressure 95/60, O2 saturation 100% on room air. PHYSICAL EXAMINATION: General: No acute distress. Chronically ill-appearing. Vitals: As above. HEENT: Normocephalic, atraumatic. Moist mucous membranes. Neck: No cervical adenopathy. Cardiovascular: Regular rate and rhythm. No murmurs, rubs or gallops. Pulmonary: Clear to auscultation bilaterally. No wheezing, rales, or rhonchi. Abdomen: Soft, nontender, nondistended. Bowel sounds still slightly hypoactive, but improved. Extremities: Peripheral pulses intact. No clubbing, cyanosis, or edema. Neurologic: Cranial nerves grossly intact. No focal deficits identified. Psychiatric: Normal mood and affect. Awake, alert, oriented x3. Skin: No new rashes or lesions identified. ASSESSMENT AND PLAN: 1. Ileus versus partial small bowel obstruction. Still nausea, but abdominal discomfort essentially resolved. Did have 1 watery bowel movement yesterday. Tolerating full liquids thus far. Abdominal x-rays significantly improved with no further apparent obstruction. Started on total parenteral nutrition by Surgery. Will see what Surgery recommends, but maybe able to advance to a soft mechanical diet. Tentative plans for exploratory laparotomy next week. 2. Colon cancer with carcinomatosis. Patient on chemotherapy as outpatient with Dr. Ojeda. The patient on second-line chemotherapy because of worsening disease. CT here with further worsening and mesenteric involvement. Oncology consulted and following. 3. Hyponatremia, remains minimal and stable. Monitor labs. 4. Pancytopenia, improving. Absolute neutrophil count almost back to normal. 5. Dehydration, resolved with intravenous fluids. 6. Hypothyroidism. Continue home Synthroid. 7. Tobacco abuse. Patient counseled on cessation. 8. Chronic abdominal pain. Continue home medications. Also on [employer] pump as per Surgery. 9. Anxiety. Continue home Xanax as needed. 10. Gastroesophageal reflux disease and reflux. Will place patient on Protonix and monitor. 11. Hypokalemia. Repletion put in by Surgery this morning. 12. Hypomagnesemia. Will replete and monitor.
[2018-06-10] MEDS: PROTONIX IV SCH (14:25)
[2018-06-10] MEDS: LIPOSYN 20% 500 ML IV SCH (14:25)
[2018-06-10] MEDS: ZOFRAN IV PRN (20:17)
[2018-06-11] MEDS: CALCIUM GLUCONATE IV SCH ×18 (01:09→21:26)
[2018-06-11] MEDS: [UNRECOGNIZED DRUG - OTHER] IV SCH ×18 (01:09→21:26)
[2018-06-11] MEDS: AMINOSYN IV SCH ×18 (01:09→21:26)
[2018-06-11] MEDS: DILAUDID PCA VIAL IV PRN (06:22)
[2018-06-11 07:05] LABS: MAGNESIUM 1.8 mg/dL (1.5-2.7); PHOSPHORUS 3.1 mg/dL (2.7-4.5)
[2018-06-11 07:57] LABS: EOS# 0.06 X1000 (0.0-0.7); EOS% 2.3 % (0.0-10.0); HEMATOCRIT 32.3 % (37.0-47.0); HEMOGLOBIN 10.2 g/dL (12.0-16.0); LYMPH# 0.77 X1000 (1.2-3.4); LYMPH% 30.1 % (20.5-51.1); MCH 30.8 PG (27-31); MCHC 31.6 g/dL (33-37); MCV 97.6 FL (81-99); MONO# 0.27 X1000 (0.11-0.59); MONO% 10.5 % (1.7-9.3); MPV 12.7 FL (7.4-10.4); NEUT# 1.46 X1000 (1.4-6.5); NEUT% 57.1 % (42.2-75.2); PLT 97 X1000 (130-400); RBC 3.31 XMIL (4.2-5.4); RDW 16.6 % (11.5-14.5); WBC 2.56 X1000 (4.8-10.8)
[2018-06-11 08:24] LABS: AGAP 10; BUN 3 mg/dL (8-22); CALCIUM 8.5 mg/dL (8.8-10.2); CHLORIDE 99 mmol/L (98-107); COSMO 268; CREATININE 0.3 mg/dL (0.5-0.9); ESTIMATED GFR > 60; GLUCOSE 121 mg/dL (70-104); POTASSIUM 3.3 mmol/L (3.5-5.1); SODIUM 135 mmol/L (136-145); TCO2 26 mmol/L (25-35)
[2018-06-11] MEDS: LR 1,000 ML IV SCH (08:24)
[2018-06-11] MEDS ORDERED: POTASSIUM CHLORIDE 60 MEQ in NS 500 ML IV ONE (09:06)
[2018-06-11] MEDS: NEURONTIN PO SCH ×3 (10:53→16:58)
--- NOTE | 2018-06-11 13:08 | PROGRESS NOTE ---
DATE: 06/11/2018 SUBJECTIVE: The patient's symptoms continue to improve. Tolerating soft diet well. No acute events overnight. No new complaints. REVIEW OF SYSTEMS: Twelve point review of systems negative except as per history. LABORATORIES: WBC 2.5, hemoglobin 10.2, hematocrit 32.3, platelet 97,000, neutrophil percentage 57.1, absolute neutrophil count is 1460, sodium 135, potassium 3.3, glucose 120, magnesium 1.8, phosphorus 3. OBJECTIVE: Vitals: Temperature maximum 99.1 degrees, pulse 104, respirations 20, blood pressure 113/77, O2 saturation 94%. General: No acute distress. Chronically ill-appearing. Vitals as above. HEENT: Normocephalic, atraumatic. Moist mucous membranes. No cervical adenopathy. Cardiovascular: Regular rate and rhythm. No murmurs, rubs or gallops. Pulmonary: Computed tomography angiography bilaterally. No wheezing, rales or rhonchi. Abdomen: Abdomen soft, nontender, nondistended. Bowel sounds present. Extremities: Peripheral pulses intact. No clubbing, cyanosis, or edema. Neurologic: Cranial nerves grossly intact. No focal deficits identified. Psychiatric: Normal mood and affect. Awake, alert, oriented x3. Skin: No new rashes or lesions. ASSESSMENT AND PLAN: 1. Ileus versus partial small bowel obstruction. Abdominal discomfort essentially resolved. Tolerating a soft diet. Surgery is following and managing. Started on TPN by surgery. Surgery considering an exploratory laparoscopy next week. 2. Colon cancer with carcinomatosis. Patient on chemotherapy as outpatient with Dr. Ojeda. patient on second-line chemotherapy because of worsening disease. CT here with further worsening mesenteric involvement. Oncology following. 3. Hyponatremia, remains minimal and stable. Monitor labs. 4. Pancytopenia, essentially unchanged. Minimal changes in blood count, platelets, total WBC down slightly, but neutrophil percentage up, so ANC is essentially the same here. Monitor. 5. Dehydration, resolved. 6. Hypothyroidism. Continue home Synthroid. 7. Tobacco abuse. Patient counseled on cessation. 8. Chronic abdominal pain. Continue home medications and other pain medicine as per Surgery. 9. Anxiety. Continue home Xanax as needed. 10. Gastroesophageal reflux disease. Continue PPI. 11. Hypokalemia. Still somewhat low, continue to replete and monitor. 12. Hypomagnesemia, improved, status post repletion. Monitor.
[2018-06-11] MEDS: PROTONIX IV SCH (13:31)
[2018-06-11] MEDS: LIPOSYN 20% 500 ML IV SCH (13:31)
[2018-06-11] MEDS: SODIUM CHLORIDE 0.9% INJ SCH (13:31)
[2018-06-11] MEDS: XANAX PO PRN ×2 (21:25→23:40)
[2018-06-12 07:14] LABS: MAGNESIUM 1.7 mg/dL (1.5-2.7)
[2018-06-12 08:47] LABS: BASO# 0.01 X1000 (0.0-0.2); BASO% 0.4 % (0.0-0.8); EOS# 0.07 X1000 (0.0-0.7); EOS% 2.5 % (0.0-10.0); HEMATOCRIT 27.9 % (37.0-47.0); HEMOGLOBIN 8.7 g/dL (12.0-16.0); LYMPH# 0.78 X1000 (1.2-3.4); LYMPH% 27.5 % (20.5-51.1); MCH 30.9 PG (27-31); MCHC 31.2 g/dL (33-37); MCV 98.9 FL (81-99); MONO% 10.6 % (1.7-9.3); NEUT# 1.68 X1000 (1.4-6.5); PLT 98 X1000 (130-400); RBC 2.82 XMIL (4.2-5.4); RDW 16.8 % (11.5-14.5); WBC 2.84 X1000 (4.8-10.8)
[2018-06-12 09:51] LABS: AGAP 10; BUN 3 mg/dL (8-22); CALCIUM 8.2 mg/dL (8.8-10.2); CHLORIDE 97 mmol/L (98-107); COSMO 262; CREATININE 0.3 mg/dL (0.5-0.9); ESTIMATED GFR > 60; GLUCOSE 109 mg/dL (70-104); POTASSIUM 3.8 mmol/L (3.5-5.1); SODIUM 132 mmol/L (136-145); TCO2 25 mmol/L (25-35)
--- NOTE | 2018-06-12 10:08 | Diag Imaging Result Doc PS360 ---
EXAM: CHEST-PORTABLE HISTORY: MD freire TECHNIQUE: Portable chest single view COMPARISON: 06/08/2018 FINDINGS: The lungs are well expanded. The heart is not enlarged. The vessels are not distended. No change in the left subclavian portacatheter. No pneumothorax. There are no infiltrates. No effusion identified. IMPRESSION: Negative exam. Electronically signed by Elmer Britton 06/12/2018 10:06 AM
[2018-06-12] MEDS: NEURONTIN PO SCH ×3 (10:11→17:48)
--- NOTE | 2018-06-12 13:12 | PROGRESS NOTE ---
DATE: 06/12/2018 SUBJECTIVE: The patient is complaining of "not feeling right." She is unable to further clarify. Denies increase in nausea, and no further vomiting. Denies increased abdominal discomfort. No diarrhea. She is having occasional bowel movements. Denies fever, chills, chest pain, dyspnea, diaphoresis. Does have some mid to low back pain which is somewhat chronic. No other new complaints. No acute events overnight. REVIEW OF SYSTEMS: Twelve point review of systems is negative except as per interval history. LABORATORIES: WBC 2.8, hemoglobin 8.7, hematocrit 27.9, platelets 98,000. Sodium 132, potassium 3.8, chloride 97, BUN 3, creatinine 0.3, glucose 109, phos 3, magnesium 1.7. OBJECTIVE: Vitals: Temperature maximum 99.1, pulse 98, respirations 16, blood pressure 102/66, O2 saturation 100% on room air. General: No acute distress. Vitals: As above. HEENT: Normocephalic, atraumatic. Moist mucous membranes. No cervical adenopathy. Cardiovascular: Regular rate and rhythm. No murmurs, rubs or gallops. Pulmonary: Clear to auscultation bilaterally. No wheezing, rales, or rhonchi. Abdomen: Soft, nontender, nondistended. Bowel sounds positive. Extremities: Peripheral pulses intact. No clubbing, cyanosis, or edema. Scattered petechiae. Neurologic: Cranial nerves grossly intact. No focal deficits identified. Psychiatric: Normal mood and affect. Awake, alert, oriented x3. Skin: A few scattered petechiae, but otherwise, no rashes or lesions. ASSESSMENT AND PLAN: 1. Ileus versus partial small bowel obstruction, essentially resolved at this point. Patient tolerating soft diet. Surgery is following and managing. Started on TPN by Surgery. Surgery considering exploratory laparoscopy. 2. Colon cancer with carcinomatosis. Patient on chemotherapy as outpatient with Dr. Ojeda. The patient on second-line chemotherapy because of worsening disease. CT here with further worsening, mesenteric involvement. Oncology consulted. 3. Hyponatremia. Slight decrease today, but still quite mild. If it continues to worsen, we will consider fluid restriction. 4. Pancytopenia. Platelets essentially unchanged. Does have slight downtrend in hemoglobin and hematocrit, but white count improved and no longer neutropenic. Continue to monitor blood counts. Likely chemotherapy related. 5. Dehydration, resolved. 6. Hypothyroidism. Continue home Synthroid. 7. Tobacco abuse. Patient counseled on cessation. 8. Chronic abdominal pain. Continue home medications and other pain medication as per Surgery. 9. Anxiety. Continue home Xanax p.r.n. 10. Gastroesophageal reflux disease. Continue PPI. 11. Hyperkalemia, improved status post repletion. Continue to monitor. 12. Hypomagnesemia, improved with repletion. Monitor.
[2018-06-12] MEDS: SODIUM CHLORIDE 0.9% INJ SCH (13:27)
[2018-06-12] MEDS: PROTONIX IV SCH (13:27)
[2018-06-12] MEDS: LIPOSYN 20% 500 ML IV SCH (14:54)
[2018-06-12] MEDS: NICODERM PATCH TD SCH (17:48)
[2018-06-12] MEDS: CALCIUM GLUCONATE IV SCH ×9 (17:48)
[2018-06-12] MEDS: AMINOSYN IV SCH ×9 (17:48)
[2018-06-12] MEDS: [UNRECOGNIZED DRUG - OTHER] IV SCH ×9 (17:48)
[2018-06-12] MEDS: PHENERGAN IV PRN (19:58)
[2018-06-12] MEDS: DILAUDID PCA VIAL IV PRN (20:38)
[2018-06-13] MEDS: PHENERGAN IV PRN ×4 (00:44→18:29)
[2018-06-13] MEDS: XANAX PO PRN ×2 (01:03→21:01)
[2018-06-13 06:27] LABS: BASO# 0.01 X1000 (0.0-0.2); BASO% 0.3 % (0.0-0.8); EOS# 0.06 X1000 (0.0-0.7); HEMATOCRIT 28.4 % (37.0-47.0); HEMOGLOBIN 8.6 g/dL (12.0-16.0); LYMPH# 1.02 X1000 (1.2-3.4); MCHC 30.3 g/dL (33-37); MONO# 0.23 X1000 (0.11-0.59); MONO% 7.7 % (1.7-9.3); MPV 12.6 FL (7.4-10.4); NEUT# 1.68 X1000 (1.4-6.5); PLT 110 X1000 (130-400); RBC 2.87 XMIL (4.2-5.4); RDW 17.5 % (11.5-14.5)
[2018-06-13 06:44] LABS: AGAP 8; BUN 3 mg/dL (8-22); CALCIUM 8.7 mg/dL (8.8-10.2); CHLORIDE 100 mmol/L (98-107); COSMO 269; CREATININE 0.2 mg/dL (0.5-0.9); ESTIMATED GFR > 60; GLUCOSE 104 mg/dL (70-104); POTASSIUM 3.2 mmol/L (3.5-5.1); SODIUM 136 mmol/L (136-145); TCO2 28 mmol/L (25-35)
[2018-06-13] MEDS: NICODERM PATCH TD SCH (09:18)
[2018-06-13] MEDS: POTASSIUM CHLORIDE 20 MEQ/SWI 20 MEQ/100 ML IVPB IV SCH ×3 (09:18→15:37)
[2018-06-13] MEDS: NEURONTIN PO SCH ×3 (09:18→18:04)
[2018-06-13] MEDS: ZOFRAN IV PRN ×2 (09:27→14:06)
[2018-06-13 09:57] LABS: CHOLESTEROL 114 mg/dL (0-200); GOT 11 U/L (10-30); MAGNESIUM 1.5 mg/dL (1.5-2.7); PREALBUMIN < 3.0 mg/dL (20-40); TRIGLYCERIDES 56 mg/dL (35-135)
[2018-06-13] MEDS: PROTONIX IV SCH (14:06)
[2018-06-13] MEDS: SODIUM CHLORIDE 0.9% INJ SCH (14:06)
--- NOTE | 2018-06-13 14:58 | PROGRESS NOTE ---
DATE: 06/13/2018 SUBJECTIVE: The patient is awake and seated on the chair. Not in any obvious distress. OBJECTIVE: Vital Signs: Temperature is 97.8 degrees, pulse 94, respiratory rate 16, blood pressure is 87/69, oxygen saturation is 100%. HEENT: She is atraumatic and normocephalic. Cardiovascular System: S1 and S2. Respiratory System: Has evidence of good air entry bilaterally. Abdomen: Soft, nontender. Bowel sounds are absent. Extremities: She does have about 2+ edema in both lower extremities. Central Nervous System: No obvious focal deficits noted. Labs: WBC is 3.0, hematocrit is 28.4, platelet count is 110,000. Sodium is 136, potassium 3.2, chloride is 100, bicarb is 28, BUN is 3, creatinine 0.2, glucose is 104, calcium is 8.7. Abdominal x-ray/KUB done on 06/10/2018 shows essentially unremarkable abdomen with no small bowel distention identified. ASSESSMENT AND PLAN: 1. Ileus versus partial small bowel obstruction, resolved at this time. The patient is being followed up by the surgical team. 2. Colon cancer with carcinomatosis. Oncology is following. 3. Hyponatremia, resolved. 4. Pancytopenia. Hematology/oncology following. 5. Hypothyroidism. Continue levothyroxine. Check on patient's thyroid function test. 6. Gastroesophageal reflux disease. Continue proton pump inhibitor. 7. Hypokalemia. We will replace potassium level and follow up on magnesium level as well. 8. Anxiety disorder. Continue anxiolytic. 9. Deep vein thrombosis prophylaxis. Sequential compression devices. 10. Gastrointestinal prophylaxis. Proton pump inhibitor. cc: West Vanegas MD
[2018-06-13] MEDS: [UNRECOGNIZED DRUG - OTHER] IV SCH ×9 (15:35)
[2018-06-13] MEDS: AMINOSYN IV SCH ×9 (15:35)
[2018-06-13] MEDS: CALCIUM GLUCONATE IV SCH ×9 (15:35)
[2018-06-13] MEDS: LIPOSYN 20% 500 ML IV SCH (15:36)
[2018-06-13] MEDS: LR 1,000 ML IV SCH (15:36)
[2018-06-14] MEDS: POTASSIUM CHLORIDE 20 MEQ/SWI 20 MEQ/100 ML IVPB IV SCH (00:49)
[2018-06-14] MEDS: PHENERGAN IV PRN ×2 (00:49→22:42)
[2018-06-14 06:18] LABS: INR 1.01; PROTIME 14.1 Seconds (11.0-16.0)
[2018-06-14 06:19] LABS: PTT 35.9 Seconds (22.3-41.8)
[2018-06-14 06:22] LABS: BASO# 0.02 X1000 (0.0-0.2); BASO% 0.7 % (0.0-0.8); EOS# 0.09 X1000 (0.0-0.7); EOS% 3.1 % (0.0-10.0); HEMATOCRIT 28.8 % (37.0-47.0); HEMOGLOBIN 8.9 g/dL (12.0-16.0); LYMPH# 1.21 X1000 (1.2-3.4); LYMPH% 41.4 % (20.5-51.1); MCH 30.6 PG (27-31); MCHC 30.9 g/dL (33-37); MONO% 10.3 % (1.7-9.3); MPV 11.9 FL (7.4-10.4); NEUT% 44.5 % (42.2-75.2); PLT 116 X1000 (130-400); RBC 2.91 XMIL (4.2-5.4); WBC 2.92 X1000 (4.8-10.8)
[2018-06-14 06:37] LABS: AGAP 9; BUN 3 mg/dL (8-22); CHLORIDE 104 mmol/L (98-107); COSMO 274; CREATININE 0.3 mg/dL (0.5-0.9); ESTIMATED GFR > 60; GLUCOSE 89 mg/dL (70-104); POTASSIUM 3.9 mmol/L (3.5-5.1); SODIUM 139 mmol/L (136-145); TCO2 26 mmol/L (25-35)
[2018-06-14] MEDS: NICODERM PATCH TD SCH (12:46)
[2018-06-14] MEDS: NEURONTIN PO SCH ×3 (12:46→16:06)
--- NOTE | 2018-06-14 14:00 | Diag Imaging Result Doc PS360 ---
GI/SW/SM BOWEL - 06/14/2018 INDICATION: abd pain TECHNIQUE: Water-soluble contrast was used COMPARISON: None FINDINGS: The patient had a very poor swallowing reflex, but was able to swallow a sufficient quantity of water-soluble contrast. The esophagus and stomach are grossly normal. The duodenum is moderately dilated up to the level of the mesenteric vessels. Remainder of the small bowel is grossly normal. Contrast filled the colon by one hour and 20 minutes. The visualized portion of the colon appears normal. IMPRESSION: No significant abnormality. Electronically signed by Erick Gil 06/14/2018 1:57 PM
[2018-06-14] MEDS: LIPOSYN 20% 500 ML IV SCH (15:55)
[2018-06-14] MEDS: PROTONIX IV SCH (16:05)
[2018-06-14] MEDS: SODIUM CHLORIDE 0.9% INJ SCH (16:05)
--- NOTE | 2018-06-14 17:28 | PROGRESS NOTE ---
DATE: 06/14/2018 SUBJECTIVE: The patient resting comfortable on bed. OBJECTIVE: Vital Signs: Temperature 98.7, pulse 95, respiratory rate 24, blood pressure is 86/62, oxygen saturation is 100%. HEENT: Atraumatic, normocephalic. Cardiovascular system: S1, S2. Respiratory system has evidence of good air entry bilaterally. Abdomen is soft, nontender. No masses felt. Extremities: No evidence of edema. Central nervous system: No obvious focal deficits noted. DIAGNOSTIC STUDIES: WBC is 3.9, hematocrit is 28.8, platelet count 116. Sodium is 139, potassium 3.9, chloride is 104, bicarbonate 26, BUN is 3, creatinine 0.3. GI series shows significant abnormalities. ASSESSMENT AND PLAN: 1. Ileus Vs partial small-bowel obstruction. Resolved. Upper GI as well as a small bowel series did not show any significant abnormalities. Surgery is following. 2. Colon cancer with carcinomatosis. Oncology following. 3. Hyponatremia, resolved. 4. Pancytopenia. Hematology/Oncology following. 5. Hypothyroidism. Continue levothyroxine. 6. Gastroesophageal reflux disease. Continue PPI. 7. Hypokalemia, resolved. 8. Anxiety disorder. Continue anxiolytic. 9. Deep vein thrombosis (DVT) prophylaxis. SCD. 10. Gastrointestinal (GI) prophylaxis. PPI. cc: West Vanegas MD [facility]
[2018-06-14] MEDS: DILAUDID PCA VIAL IV PRN (19:35)
[2018-06-14] MEDS: XANAX PO PRN (22:42)
[2018-06-15] MEDS: LR 1,000 ML IV SCH (05:15)
[2018-06-15] MEDS: CALCIUM GLUCONATE IV SCH ×18 (07:07→12:01)
[2018-06-15] MEDS: [UNRECOGNIZED DRUG - OTHER] IV SCH ×18 (07:07→12:01)
[2018-06-15] MEDS: AMINOSYN IV SCH ×18 (07:07→12:01)
[2018-06-15 07:23] LABS: BASO# 0.03 X1000 (0.0-0.2); EOS# 0.14 X1000 (0.0-0.7); EOS% 4.6 % (0.0-10.0); HEMATOCRIT 26.7 % (37.0-47.0); HEMOGLOBIN 8.1 g/dL (12.0-16.0); LYMPH# 1.08 X1000 (1.2-3.4); LYMPH% 35.6 % (20.5-51.1); MCH 29.9 PG (27-31); MCHC 30.3 g/dL (33-37); MCV 98.5 FL (81-99); MONO# 0.36 X1000 (0.11-0.59); MONO% 11.9 % (1.7-9.3); MPV 12.5 FL (7.4-10.4); NEUT# 1.42 X1000 (1.4-6.5); NEUT% 46.9 % (42.2-75.2); PLT 122 X1000 (130-400); RBC 2.71 XMIL (4.2-5.4); RDW 18.2 % (11.5-14.5); WBC 3.03 X1000 (4.8-10.8)
[2018-06-15 07:51] LABS: AGAP 8; BUN 4 mg/dL (8-22); CALCIUM 8.2 mg/dL (8.8-10.2); CHLORIDE 104 mmol/L (98-107); COSMO 271; CREATININE 0.2 mg/dL (0.5-0.9); ESTIMATED GFR > 60; GLUCOSE 65 mg/dL (70-104); POTASSIUM 3.1 mmol/L (3.5-5.1); SODIUM 138 mmol/L (136-145); TCO2 26 mmol/L (25-35)
[2018-06-15] MEDS ORDERED: DIPRIVAN 1% ONE (11:30)
[2018-06-15] MEDS ORDERED: QUELICIN (DOSE) ONE (11:32)
[2018-06-15] MEDS: NEURONTIN PO SCH ×3 (12:01→16:05)
[2018-06-15] MEDS: NICODERM PATCH TD SCH (12:01)
[2018-06-15] MEDS ORDERED: SENSORCAINE 0.5%-EPI 1:200,000 ONE (12:10)
[2018-06-15] MEDS ORDERED: LEVAQUIN 500 MG/D5W 500 MG/100 ML IVPB ONE (12:10)
[2018-06-15] MEDS ORDERED: LR 1,000 ML ONE (12:11)
[2018-06-15] MEDS ORDERED: VERSED ONE (12:12)
[2018-06-15] MEDS ORDERED: DILAUDID ONE (12:45)
[2018-06-15] MEDS: DILAUDID ONE ×4 (12:45→13:40)
[2018-06-15] MEDS ORDERED: VENTOLIN HFA ONE (12:47)
[2018-06-15] MEDS ORDERED: DECADRON ONE (12:56)
[2018-06-15] MEDS ORDERED: ZOFRAN ONE (12:56)
[2018-06-15] MEDS ORDERED: BRIDION ONE (13:03)
[2018-06-15 13:30] LABS: URINE SOURCE CATH
[2018-06-15 13:34] LABS: BILIRUBIN URINE NEGATIVE (NEGATIVE); BLOOD URINE NEGATIVE (NEGATIVE); COLOR YELLOW; GLUCOSE URINE NEGATIVE (NEGATIVE); KETONE URINE NEGATIVE (NEGATIVE); LEUKOCYTES URINE NEGATIVE (NEGATIVE); NITRITE URINE NEGATIVE (NEGATIVE); PH URINE 6.5; PROTEIN URINE NEGATIVE (NEGATIVE); SP GRAVITY URINE 1.007; TURBIDITY URINE CLEAR (CLEAR); UROBILINOGEN URINE NORMAL (NORMAL)
[2018-06-15 13:35] LABS: UR EPITHELIAL CELLS <10 /HPF (<10); URINE BACTERIA NEGATIVE /HPF; URINE RBC <10 /HPF (<10); URINE WBC <10 /HPF (<10)
--- NOTE | 2018-06-15 13:39 | PROGRESS NOTE ---
DATE: 06/15/2018 SUBJECTIVE: The patient resting comfortable in bed not in any obvious distress. OBJECTIVE: Vital signs: Temperature is 97.7 degrees, pulse 76, respiratory rate 18, blood pressure is 104/64, and oxygen saturation 95%. HEENT: Atraumatic, normocephalic. Cardiovascular: S1, S2. Respiratory: There is evidence of good air entry bilaterally. Abdomen: Soft. Nontender. No masses felt. Extremities: No significant edema. Central nervous system: No obvious focal deficits noted. LABORATORY: WBC is 3.03, hematocrit is 26.7 with a platelet count of 122,000. Sodium is 138, potassium 4.1, chloride is 104, bicarb 26, BUN is 4 and creatinine 0.2. ASSESSMENT AND PLAN: 1. Ileus versus partial small bowel obstruction. Resolved. Upper GI as well as a small bowel series did not show any significant abnormalities. Surgery is following. 2. Colon cancer with carcinomatosis. Oncology following. 3. Pancytopenia. Hematology/Oncology following. 4. Hypothyroidism. Continue levothyroxine. 5. Gastroesophageal reflux disease. Continue proton pump inhibitor. 6. Anxiety disorder. Continue anxiolytic. 7. Deep vein thrombosis prophylaxis. Sequential compression devices. 8. Gastrointestinal prophylaxis. PPI. cc: West Vanegas MD
--- NOTE | 2018-06-15 15:36 | OPERATIVE NOTE ---
PROCEDURE DATE: 06/15/2018 PREOPERATIVE DIAGNOSIS: History of a right colectomy in November 2017, now with new onset of ascites and weight loss in spite of chemotherapy. POSTOPERATIVE DIAGNOSIS: Laparoscopy. Evacuation of a liter and a half of ascites sent for routine cytology. Findings were significant carcinomatosis all across the surface of the liver and the peritoneal surface, thickened omentum with entrapped bowel, but no bowel obstruction. PROCEDURE: Laparoscopy, actuation of ascites. DESCRIPTION OF PROCEDURE: The patient was brought to the operating room. After satisfactory induction of IV and endotracheal anesthesia, athrombic TEDs and a Burnette catheter were placed. Her abdomen was broadly prepped and draped in the appropriate manner for laparoscopy. In the right epigastrium an incision was made with no local as she has a lidocaine allergy. Dissection was taken down through skin and subcutaneous tissue to the fascia of the rectus muscle. Fascia was tacked with 0 Surgilon and incised. The muscle was split. The peritoneum was grasped and incised with a burst of cloudy ascitic fluid. Approximately 50 mL of this was sent for routine cytology. With introduction of the camera after insufflation, there was evidence of carcinomatosis all across the surfaces of the liver and the peritoneal surface. Very thickened omentum with trapped bowel, but the patient had a recent GI study revealing no bowel obstruction. A 5 mm trocar was placed in the left side of the abdomen with aspiration of approximately 1500 mL of ascitic fluid from the pelvis in the right abdomen. Several photos were obtained of the carcinomatosis. No further procedures were done. The abdomen was subsequently deflated. The epigastric incision underwent fascial closures of 0 Surgilon. All skin incisions were closed with subcuticular 4-0 Vicryl. Steri-Strips, Telfa, and OpSites were applied. Burnette catheter was removed. The patient was awakened and extubated in the operating room and transferred to recovery. Estimated blood loss was 5-10 mL. cc: Theo Florian MD
[2018-06-15] MEDS: LIPOSYN 20% 500 ML IV SCH (15:53)
[2018-06-15] MEDS: PROTONIX IV SCH (16:06)
[2018-06-15] MEDS: POTASSIUM CHLORIDE 20 MEQ/SWI 20 MEQ/100 ML IVPB IV SCH ×2 (16:06→21:52)
[2018-06-15] MEDS: SODIUM CHLORIDE 0.9% INJ SCH (16:06)
[2018-06-15] MEDS: XANAX PO PRN (18:40)
[2018-06-15] MEDS: PHENERGAN IV PRN (21:52)
[2018-06-16] MEDS: ZOFRAN IV PRN ×2 (01:38→14:08)
[2018-06-16] MEDS: XANAX PO PRN ×2 (01:38→02:16)
[2018-06-16] MEDS: [UNRECOGNIZED DRUG - OTHER] IV SCH ×18 (05:00→08:01)
[2018-06-16] MEDS: CALCIUM GLUCONATE IV SCH ×18 (05:00→08:01)
[2018-06-16] MEDS: AMINOSYN IV SCH ×18 (05:00→08:01)
[2018-06-16] MEDS: TYLENOL PO PRN ×3 (05:00→22:45)
[2018-06-16 07:03] LABS: BASO# 0.01 X1000 (0.0-0.2); BASO% 0.4 % (0.0-0.8); HEMATOCRIT 24.1 % (37.0-47.0); HEMOGLOBIN 7.4 g/dL (12.0-16.0); LYMPH# 0.55 X1000 (1.2-3.4); LYMPH% 23.9 % (20.5-51.1); MCH 29.7 PG (27-31); MCHC 30.7 g/dL (33-37); MCV 96.8 FL (81-99); MONO# 0.17 X1000 (0.11-0.59); MONO% 7.4 % (1.7-9.3); MPV 12.5 FL (7.4-10.4); NEUT# 1.57 X1000 (1.4-6.5); NEUT% 68.3 % (42.2-75.2); PLT 114 X1000 (130-400); RBC 2.49 XMIL (4.2-5.4); RDW 18.5 % (11.5-14.5)
[2018-06-16 07:17] LABS: AGAP 10; ALB/GLOB RATIO 0.8; ALKALINE PHOSPHATASE 76 U/L (32-104); BUN 6 mg/dL (8-22); CALCIUM 7.4 mg/dL (8.8-10.2); CHLORIDE 100 mmol/L (98-107); COSMO 268; CREATININE 0.4 mg/dL (0.5-0.9); ESTIMATED GFR > 60; GLUCOSE 110 mg/dL (70-104); GOT 18 U/L (10-30); GPT < 5 U/L (10-36); SODIUM 135 mmol/L (136-145); TCO2 25 mmol/L (25-35); TOTAL PROTEIN 4.4 g/dL (6.3-8.3)
[2018-06-16] MEDS: NEURONTIN PO SCH ×3 (10:14→16:36)
[2018-06-16] MEDS: NICODERM PATCH TD SCH (10:14)
[2018-06-16] MEDS: D5 1/2 NS + KCL 30 MEQ 1,000 ML IV SCH (10:17)
[2018-06-16] MEDS ORDERED: NS 500 ML ONE (10:47)
[2018-06-16] MEDS ORDERED: LEVAQUIN 500 MG/D5W 500 MG/100 ML IVPB IV SCH (11:00)
[2018-06-16] MEDS: PHENERGAN IV PRN (12:42)
--- NOTE | 2018-06-16 12:55 | PROGRESS NOTE ---
DATE: 06/16/2018 SUBJECTIVE: The patient is resting in bed. No obvious distress. OBJECTIVE: Vital Signs: Temperature 98.2 degrees, pulse is 106, respiratory rate is 18, blood pressure 101/62, and O2 saturation 100%. HEENT: Atraumatic, normocephalic. Cardiovascular: S1, S2. Abdomen: No significant distention noted. Extremities: No evidence of edema. Central nervous system: No obvious focal deficits noted. LABORATORY: WBC is 2.3, hematocrit 24.1, with a platelet count of 114,000. Sodium is 135, potassium 3.0, chloride is 101, bicarb is 25, creatinine 0.4. Calcium level is 7.4. ASSESSMENT AND PLAN: 1. Ileus versus partial small bowel obstruction. Resolved. Upper GI as well as small bowel series did not show any significant abnormalities. Surgery following. 2. Colon cancer with carcinomatosis. The patient did have a laparoscopy done 06/15/2018. This was done because of new onset ascites. Findings are significant carcinomatosis all across esophagus, liver and also thickened omentum with entrapped bowel but no evidence of bowel obstruction. The patient has also been followed up by the oncology team. 3. Pancytopenia. Hematology/oncology following. 4. Hypothyroidism. Continue levothyroxine. 5. Gastroesophageal reflux disease. Continue proton pump inhibitor. 6. Anxiety disorder. Continue anxiolytic. 7. Deep vein thrombosis prophylaxis. Sequential compression devices. 8. Gastrointestinal prophylaxis. PPI. cc: West Vanegas MD [facility]
[2018-06-16] MEDS ORDERED: VANCOMYCIN IV PER PHARMACY MISC SCH (14:15)
[2018-06-16] MEDS: PROTONIX IV SCH (14:34)
[2018-06-16] MEDS: MERREM 1 GM in NS 50 ML IV SCH ×2 (14:34→22:09)
[2018-06-16] MEDS: COMPAZINE IV PRN ×2 (14:34→22:42)
[2018-06-16] MEDS: LIPOSYN 20% 500 ML IV SCH (14:42)
[2018-06-16] MEDS ORDERED: VANCOMYCIN 1,850 MG in NS 500 ML IV ONE (15:00)
--- NOTE | 2018-06-16 15:35 | INFECTIOUS DISEASE CONSULT REP ---
DATE: 06/16/2018 CONCLUSION: The patient has neutropenic fever. Possible causes of it could be a bacteremia originating either from the patient's left-sided Port-A-Cath or it could be from organisms migrating the bowel wall and getting into the bloodstream to cause bacteremia. The patient does not have a urinary tract infection, and she does not appear to have pneumonia either. RECOMMENDATIONS: I have discontinued Levaquin and placed the patient on a combination of vancomycin and meropenem. I have requested that the nurse observe the patient during the first dose of meropenem. Also, I have discontinued isolation in view of the fact that the patient's absolute neutrophil count is 1570. DISCUSSION: The patient was having violent chills and shakes while I was in her room. She was unable to provide a history. According to the information in the computer, the patient was initially admitted with abdominal pain, nausea and vomiting. She has been receiving chemotherapy for a colon cancer. PAST MEDICAL HISTORY: Positive for a right colon cancer with multiple metastatic lesions. She also has a bipolar disorder, prediabetes, irritable bowel syndrome, hypothyroidism, and hyperlipidemia. PAST SURGICAL HISTORY: The patient's past surgical history is positive for exploratory laparotomy, right colectomy with ileotransverse colostomy, appendectomy, a cholecystectomy, and a hysterectomy. SOCIAL HISTORY: The patient lives with her boyfriend. She smokes cigarettes. She occasionally drinks alcoholic beverages. She uses marijuana daily. The patient is disabled. She has not worked in 15 years. FAMILY HISTORY: Positive for myocardial infarction and a valve replacement. ALLERGIES: Include [place]. Also listed is Motrin, latex, Xylocaine, Lortab, and Biaxin. It is in the patient's chart that she is allergic to amoxicillin and Keflex, and when the patient was not having a real hard chill, she told me that she has had Keflex and tolerated it well, and she also said that she is not allergic to any kind of penicillin. The patient's information about allergies in her chart is that she is allergic to Lortab, amoxicillin, cephalexin, clarithromycin, hydrocodone, Motrin, latex, lidocaine, Lorabid, Risperdal, and fentanyl. As mentioned above, the patient told me that she is not allergic to amoxicillin or Keflex. REVIEW OF SYSTEMS: Unable to be obtained currently. LABORATORY AND DIAGNOSTIC STUDIES: The patient's CBC shows a white count of 2300 with an absolute neutrophil count of 1570. The patient's hemoglobin is 7.4, and platelet count is a 114,000. Chest x-ray is clear. Blood cultures are pending. Urine cultures negative. Urinalysis is negative for white cells and bacteria. Liver function studies are normal. Creatinine 0.4, GFR is greater than 60. CT scan of the abdomen and pelvis shows worsening omental thickness with ascites and ileus versus obstruction. HOME MEDICATIONS: The patient's home medications include the following: Alprazolam, docusate, doxycycline, fentanyl, gabapentin, morphine, Zofran, Compazine, Phenergan. PHYSICAL EXAMINATION: Vital Signs: Temperature is 99.4, pulse 127, respirations 16, blood pressure 115/65. Height and Weight: The patient is 5 feet 10 inches tall, weighs 136 pounds. General: This is a chronically ill-appearing, malnourished, middle-aged female. She weighs 136 pounds. She is 5 feet 10 inches tall. Head, Eyes, Ears, Nose, and Throat: No drainage was noted from the nose or ears. She does not have any white patches on her tongue. Neck: No pain with movement. Lungs: Clear to auscultation. Cardiovascular: Heart rate is regular. Abdomen: Soft, but tender. The patient's incision sites are not erythematous or draining. Neurologic: The patient is lethargic today. She did answer some questions, and she did move her arms to request. Integumentary: No rash noted. Thank you for the consultation. cc: Horacio Rangel MD
[2018-06-16] MEDS: BENADRYL IV PRN (22:45)
[2018-06-17] MEDS: D5 1/2 NS + KCL 30 MEQ 1,000 ML IV SCH (02:46)
[2018-06-17] MEDS: CALCIUM GLUCONATE IV SCH ×19 (02:47→22:03)
[2018-06-17] MEDS: AMINOSYN IV SCH ×19 (02:47→22:03)
[2018-06-17] MEDS: [UNRECOGNIZED DRUG - OTHER] IV SCH ×19 (02:47→22:03)
[2018-06-17] MEDS: VANCOMYCIN 1,350 MG in NS 250 ML IV SCH ×2 (03:18→18:36)
[2018-06-17] MEDS: COMPAZINE IV PRN ×2 (05:37→16:47)
[2018-06-17] MEDS: MERREM 1 GM in NS 50 ML IV SCH ×3 (05:37→22:52)
[2018-06-17 06:38] LABS: BASO# 0.01 X1000 (0.0-0.2); BASO% 0.4 % (0.0-0.8); EOS# 0.01 X1000 (0.0-0.7); EOS% 0.4 % (0.0-10.0); HEMATOCRIT 31.5 % (37.0-47.0); LYMPH# 0.51 X1000 (1.2-3.4); LYMPH% 19.2 % (20.5-51.1); MCH 29.9 PG (27-31); MCHC 31.7 g/dL (33-37); MONO# 0.19 X1000 (0.11-0.59); MONO% 7.1 % (1.7-9.3); MPV 13.2 FL (7.4-10.4); NEUT# 1.94 X1000 (1.4-6.5); NEUT% 72.9 % (42.2-75.2); PLT 82 X1000 (130-400); RBC 3.35 XMIL (4.2-5.4); RDW 18.7 % (11.5-14.5); WBC 2.66 X1000 (4.8-10.8)
[2018-06-17 06:56] LABS: AGAP 9; ALB/GLOB RATIO 0.8; ALBUMIN 1.9 g/dL (3.5-5.0); ALKALINE PHOSPHATASE 60 U/L (32-104); BUN 6 mg/dL (8-22); CALCIUM 7.8 mg/dL (8.8-10.2); CHLORIDE 106 mmol/L (98-107); COSMO 276; CREATININE 0.3 mg/dL (0.5-0.9); ESTIMATED GFR > 60; GLUCOSE 87 mg/dL (70-104); GOT 20 U/L (10-30); GPT < 5 U/L (10-36); POTASSIUM 2.6 mmol/L (3.5-5.1); SODIUM 140 mmol/L (136-145); TCO2 25 mmol/L (25-35); TOTAL BILIRUBIN 0.34 mg/dL (0.20-1.00); TOTAL PROTEIN 4.4 g/dL (6.3-8.3)
[2018-06-17] MEDS: NEURONTIN PO SCH ×3 (08:15→17:20)
[2018-06-17] MEDS: BENADRYL IV PRN (08:15)
[2018-06-17] MEDS: NICODERM PATCH TD SCH (08:16)
[2018-06-17] MEDS: TYLENOL PO PRN ×3 (10:15→23:54)
[2018-06-17] MEDS: POTASSIUM CHLORIDE 20 MEQ/SWI 20 MEQ/100 ML IVPB IV SCH ×3 (10:21→18:43)
[2018-06-17] MEDS: LR 1,000 ML IV SCH (11:31)
--- NOTE | 2018-06-17 13:57 | PROGRESS NOTE ---
DATE: 06/17/2018 INTERVAL HISTORY: Patient with high fevers yesterday up to 102.5, but have not been repeated so far today. She reports nausea, but no vomiting. No cough or dysuria. Blood cultures obtained and now positive for gram-positive cocci. No other acute events overnight. No new complaints. REVIEW OF SYSTEMS: A 12 point review of systems negative except as per interval history. LABS: WBC 2.6, hemoglobin 10, hematocrit 31.5, platelets 82,000. Sodium 140, potassium 2.6, BUN 6, creatinine 0.3, albumin 1.9. Blood cultures from 06/16/2018 show 1 of 2 positive for gram- positive cocci. OBJECTIVE: Vital Signs: T-max 102.5 degrees, pulse 100, respirations 18, blood pressure 89/52, O2 saturation 96% on room air. General: No acute distress. Vitals as above. HEENT: Normocephalic, atraumatic. Moist mucous membranes. No cervical adenopathy. Cardiovascular: Regular rate and rhythm. No murmurs, rubs, or gallops. Pulmonary: Clear to auscultation bilaterally. No wheezing, rales, or rhonchi. Abdomen: Soft, nontender, nondistended. Bowel sounds positive. Extremities: Peripheral pulses intact. No clubbing, cyanosis, or edema. Neurologic: Cranial nerves grossly intact. No focal deficits identified. Psychiatric: Normal mood and affect. Awake, alert, oriented x3. Skin: No new rashes or lesions identified. ASSESSMENT AND PLAN: 1. Small-bowel obstruction. Patient tolerating liquids well. Some occasional nausea, but no further vomiting. Poor appetite, but obstruction itself appears to be resolved at this point. Surgery following. On total parenteral nutrition as per Surgery. 2. Bacteremia. Patient with high fevers yesterday. No immediately obvious source, but blood cultures now are 1 of 2 positive for gram-positive cocci. Concern for possible port infection, although her port site looks good. Will see what the finalization on that is. Currently on antibiotics with Merrem and vancomycin. Infectious Disease following. 3. Colon cancer with diffuse carcinomatosis and omental involvement. Patient on chemotherapy as outpatient by Dr. Ojeda. Currently on second-line chemotherapy with further worsening on admission here. Oncology following. 4. Pancytopenia. Patient still leukopenic, but no longer neutropenic. Blood counts improved status post transfusion yesterday. Platelets slightly decreased, but no signs or symptoms of active bleeding. Likely chemotherapy related. 5. Dehydration, resolved. 6. Hypothyroidism. Continue home Synthroid. 7. Tobacco abuse. Patient counseled on cessation. 8. Anxiety. Continue home Xanax p.r.n. 9. Chronic abdominal pain. Continue home medications and pain medication as per Surgery. 10. Gastroesophageal reflux disease. Continue proton pump inhibitor. 11. Hypokalemia, still low. Will further replete and monitor.
[2018-06-17] MEDS: PROTONIX IV SCH (14:10)
[2018-06-17] MEDS: SODIUM CHLORIDE 0.9% INJ SCH (14:11)
[2018-06-17] MEDS ORDERED: NS 500 ML IV SCH (14:30)
[2018-06-17] MEDS: LIPOSYN 20% 500 ML IV SCH (14:37)
[2018-06-17] MEDS ORDERED: DILAUDID-HP 30 MG in NS 27 ML IV PRN (21:30)
[2018-06-17] MEDS: XANAX PO PRN (23:54)
[2018-06-18] MEDS: TYLENOL PO PRN (03:56)
[2018-06-18] MEDS: COMPAZINE IV PRN ×2 (03:58→22:59)
[2018-06-18] MEDS: MERREM 1 GM in NS 50 ML IV SCH ×2 (05:00→06:33)
[2018-06-18 07:02] LABS: BASO# 0.01 X1000 (0.0-0.2); BASO% 0.3 % (0.0-0.8); EOS# 0.04 X1000 (0.0-0.7); EOS% 1.3 % (0.0-10.0); HEMATOCRIT 30.5 % (37.0-47.0); HEMOGLOBIN 9.6 g/dL (12.0-16.0); LYMPH# 0.88 X1000 (1.2-3.4); LYMPH% 29.6 % (20.5-51.1); MCH 29.4 PG (27-31); MCHC 31.5 g/dL (33-37); MCV 93.3 FL (81-99); MONO# 0.29 X1000 (0.11-0.59); MONO% 9.8 % (1.7-9.3); NEUT# 1.75 X1000 (1.4-6.5); PLT 87 X1000 (130-400); RBC 3.27 XMIL (4.2-5.4); WBC 2.97 X1000 (4.8-10.8)
[2018-06-18 07:32] LABS: AGAP 9; BUN 6 mg/dL (8-22); CALCIUM 7.7 mg/dL (8.8-10.2); CHLORIDE 108 mmol/L (98-107); COSMO 276; CREATININE 0.3 mg/dL (0.5-0.9); ESTIMATED GFR > 60; GLUCOSE 88 mg/dL (70-104); MAGNESIUM 1.4 mg/dL (1.5-2.7); SODIUM 140 mmol/L (136-145); TCO2 23 mmol/L (25-35)
[2018-06-18] MEDS ORDERED: VANCOMYCIN 1,350 MG in NS 250 ML IV SCH (08:30)
[2018-06-18] MEDS: NEURONTIN PO SCH ×3 (08:42→21:09)
[2018-06-18] MEDS: NICODERM PATCH TD SCH ×2 (08:42→08:43)
--- NOTE | 2018-06-18 11:36 | INFECTIOUS DISEASE PROGRESS NO ---
DATE: 06/18/2018 PRESENT ILLNESS: The patient has been having fever. Her recent blood cultures are both growing Staph epidermidis. Therefore, it appears the patient has a true Staph bacteremia, which most likely originates from her Port-A-Cath. MEDICATIONS: Currently, the patient is on vancomycin and Zosyn. PHYSICAL EXAMINATION: Vital Signs: Temperature is 97.8 degrees, pulse 90, respirations 14, blood pressure 101/67. General: This is a somewhat ill-appearing, middle-aged female. She is in no acute distress. Head/eyes/ears/nose/throat: She can hear my spoken words and see near objects. There is no drainage from the nose or ears. She does not have any white coating on her tongue. Neck: No pain with movement. Lungs: Clear to auscultation. Cardiovascular: Heart rate is regular. Thorax: Patient has a Port-A-Cath in place. The Port-A-Cath site is not erythematous or swollen. Abdomen: Soft and not tender. The patient's incisions are intact and they are not erythematous or draining. Neurologic: The patient is awake. She can move her extremities. There is no tremor. Integument: No rash noted. LABORATORY AND X-RAY: Both the patient's blood cultures are growing Staph epidermidis. The VALERIE of vancomycin to the patient's Staph epidermidis is 2 which predicts failure in clearing the bacteremia. ASSESSMENT AND PLAN: 1. Because of the high VALERIE of vancomycin, I am switching the patient from vancomycin and Zosyn to daptomycin. Hopefully, the daptomycin which I will give intravenously for 2 weeks through the Port-A-Cath will clear the infection, but if it does not, then the Port-A-Cath will have to be removed. I ordered an echocardiogram to look for endocarditis. 2. Comorbidities: She has colon cancer with multiple metastatic lesions. She also has bipolar disorder, prediabetes as well as hyperlipidemia and hypothyroidism. cc: Horacio Rangel MD [facility]
[2018-06-18] MEDS: CUBICIN 400 MG in NS 100 ML IV SCH (13:20)
--- NOTE | 2018-06-18 13:46 | PROGRESS NOTE ---
DATE: 06/18/2018 SUBJECTIVE: Patient resting on bed not in any obvious distress. OBJECTIVE: Vital signs: Temperature 97.7 degrees, pulse 94, respirations 20, blood pressure 97/67, oxygen saturation 95%. HEENT: Atraumatic, normocephalic. Cardiovascular: S1, S2. Respiratory: Has evidence of good air entry bilaterally. Abdomen: Soft, nontender. No masses felt. Extremities: No evidence of edema. Central nervous system: No obvious focal deficits noted. LABS: WBC is 2.97, hematocrit is 30.5 with a platelet count of 87,000, sodium is 140, potassium 3.0, chloride is 108, bicarb is 23, Blood cultures positive for Staph epidermidis. ASSESSMENT AND PLAN: 1. Staph epidermidis bacteremia. Continue antibiotics. Port-A-Cath may have to be discontinued. Defer management to Infectious Disease. 2. Ileus is small bowel obstruction resolved. Upper gastrointestinal as well as a small bowel series did not show any significant abnormalities. Surgery following. 3. Colon cancer with carcinomatosis. Oncology following. 4. Pancytopenia. Hematology following. 5. Hypothyroidism. Continue levothyroxine. 6. Gastroesophageal reflux disease. Continue PPI. 7. Anxiety disorder. Continue anxiolytic. 8. Deep vein thrombosis prophylaxis SCD. 9. Gastrointestinal prophylaxis PPI. cc: West Vanegas MD [facility]
[2018-06-18] MEDS: PROTONIX IV SCH (15:18)
[2018-06-18] MEDS: POTASSIUM CHLORIDE 20 MEQ/SWI 20 MEQ/100 ML IVPB IV SCH ×2 (15:25→21:08)
[2018-06-18] MEDS: LIPOSYN 20% 500 ML IV SCH (16:50)
[2018-06-18] MEDS: [UNRECOGNIZED DRUG - OTHER] IV SCH ×10 (21:08)
[2018-06-18] MEDS: CALCIUM GLUCONATE IV SCH ×10 (21:08)
[2018-06-18] MEDS: AMINOSYN IV SCH ×10 (21:08)
[2018-06-18] MEDS: XANAX PO PRN (22:59)
[2018-06-19] MEDS: D5 1/2 NS + KCL 30 MEQ 1,000 ML IV SCH (00:11)
[2018-06-19] MEDS: TYLENOL PO PRN ×3 (03:28→19:06)
[2018-06-19] MEDS: COMPAZINE IV PRN (05:48)
[2018-06-19 07:19] LABS: BASO# 0.01 X1000 (0.0-0.2); BASO% 0.3 % (0.0-0.8); EOS# 0.01 X1000 (0.0-0.7); EOS% 0.3 % (0.0-10.0); HEMOGLOBIN 10.1 g/dL (12.0-16.0); LYMPH# 0.77 X1000 (1.2-3.4); LYMPH% 25.4 % (20.5-51.1); MCH 29.2 PG (27-31); MCHC 31.6 g/dL (33-37); MCV 92.5 FL (81-99); MONO# 0.22 X1000 (0.11-0.59); MONO% 7.3 % (1.7-9.3); NEUT# 2.02 X1000 (1.4-6.5); NEUT% 66.7 % (42.2-75.2); PLT 100 X1000 (130-400); RBC 3.46 XMIL (4.2-5.4); RDW 18.9 % (11.5-14.5); WBC 3.03 X1000 (4.8-10.8)
[2018-06-19 07:20] LABS: AGAP 11; ALB/GLOB RATIO 0.7; ALKALINE PHOSPHATASE 85 U/L (32-104); BUN 5 mg/dL (8-22); CHLORIDE 104 mmol/L (98-107); COSMO 271; CREATININE 0.3 mg/dL (0.5-0.9); ESTIMATED GFR > 60; GLUCOSE 92 mg/dL (70-104); GOT 25 U/L (10-30); GPT 7 U/L (10-36); POTASSIUM 3.3 mmol/L (3.5-5.1); SODIUM 137 mmol/L (136-145); TCO2 22 mmol/L (25-35); TOTAL PROTEIN 4.8 g/dL (6.3-8.3)
[2018-06-19] MEDS: NEURONTIN PO SCH ×3 (10:01→17:59)
[2018-06-19] MEDS: NICODERM PATCH TD SCH (10:02)
--- NOTE | 2018-06-19 12:11 | INFECTIOUS DISEASE PROGRESS NO ---
DATE: 06/19/2018 PRESENT ILLNESS: The patient has Staphylococcus epidermidis bacteremia which I think originates from her Port-A-Cath. Repeat blood cultures were obtained, and they were still positive. I think this occurred because the vancomycin VALERIE was 2, and this predicts failure and the patient was on vancomycin when the repeat blood cultures were drawn. MEDICATIONS: The patient yesterday was started on daptomycin. PHYSICAL EXAMINATION: Vital Signs: Temperature is 100.4 degrees, pulse 103, respirations 20, blood pressure 105/74. General: This is an ill-appearing middle-aged female. She is in no acute distress. Head, eyes, ears, nose, and throat: She can hear my spoken words and see near objects. She does not have any white coating on her tongue. Neck: No meningismus. Lungs: Clear to auscultation. Cardiovascular: Heart rate is regular. Thorax: Patient has a Port-A-Cath in place. The site is not erythematous or swollen. Abdomen: Soft and nontender. The patient's incisions are healing well. Neurologic: Patient is alert. She can move her extremities. There is no tremor. Integument: No rash noted. DIAGNOSTIC STUDIES: As mentioned above, the repeat blood cultures are growing gram-positive cocci. CBC shows a white count of 3030, hemoglobin 10.1, and platelet count 200,000. Creatinine is 0.3, GFR is greater than 60. Liver function studies are normal. ASSESSMENT AND PLAN: The patient has Staphylococcus epidermidis bacteremia. My plan is to continue daptomycin, and after the patient has had 2 days of daptomycin, I am going to repeat the blood cultures, and hopefully by then, they will be negative. PATIENT'S COMORBIDITIES: She has colon cancer with multiple metastatic lesions. cc: Horacio Rangel MD [facility]
--- NOTE | 2018-06-19 12:58 | PROGRESS NOTE ---
DATE: 06/19/2018 SUBJECTIVE: The patient is resting on bed. No new complaints today. OBJECTIVE: Vital signs: Temperature 100.7, pulse is 116, respirations 22, blood pressure is 118/80, oxygen saturation is 97%. HEENT: She is atraumatic, normocephalic. Cardiovascular System: S1, S2. Respiratory System: No rales or rhonchi noted. Abdomen: Soft, nontender. No masses felt. Extremities: No significant edema in the lower extremities. Central Nervous System: No obvious focal deficit noted. DIAGNOSTIC STUDIES: WBC is 3.03, hematocrit is 32.0 with a platelet count of 100,000. Sodium is 137, potassium 3.3 chloride is 104, bicarbonate is 22, BUN is 5, creatinine 0.3. Blood cultures done 06/16/2018 positive for Staphylococcus epidermidis. Blood cultures, 06/18/2018, show a Gram-positive cocci. ASSESSMENT AND PLAN: 1. Staphylococcus epidermidis bacteremia. Continue antibiotics. Port-A-Cath may have to be discontinued. Infectious Disease managing. 2. Probable bowel obstruction. Resolved. 3. Colon cancer with carcinomatosis. Oncology following. 4. Pancytopenia. Aware. Hematology following. 5. Hypothyroidism. Continue levothyroxine. 6. Gastroesophageal reflux disease. Continue proton pump inhibitor. 7. Anxiety disorder. Continue anxiolytic. 8. Deep vein thrombosis prophylaxis. Sequential compression devices. 9. Gastrointestinal prophylaxis. Proton pump inhibitor. DISPOSITION: I suspect the Infectious Disease team would like to see the blood sterile prior to discharge. At the same time, the Port-A-Cath may have to also be discontinued before the patient can be discharged home. cc: West Vanegas MD
[2018-06-19] MEDS: CUBICIN 400 MG in NS 100 ML IV SCH (13:19)
[2018-06-19] MEDS: PROTONIX IV SCH (13:19)
--- NOTE | 2018-06-19 14:21 | ECHO REPORT ---
ORDER DATE: 06/19/2018 INDICATION: Endocarditis. FINDINGS: 1. The right atrium appears normal in size. 2. Mild tricuspid regurgitation. Insufficient data to estimate RV systolic pressure. 3. Normal RV size and systolic function. 4. Trace pulmonic insufficiency. 5. Normal left atrial size with a dimension of 2.4 cm. 6. No mitral valve prolapse. No significant mitral regurgitation. 7. Normal LV size, end-diastolic dimension of 3.5 cm. Normal wall thicknesses with a posterior and interventricular septal wall thickness of 1.0 cm each. Normal LV systolic function. Estimated EF 60% with no obvious wall motion abnormalities. 8. Aortic valve opens well. No evidence of stenosis or insufficiency. 9. Aorta appears normal in visualized segments. 10. No pericardial effusion seen. 11. There is no clear evidence of valvular vegetation visualized on this study. If clinical suspicion is high would recommend a transesophageal echocardiogram. cc: MD Horacio King MD
[2018-06-19] MEDS: LIPOSYN 20% 500 ML IV SCH (17:34)
[2018-06-19] MEDS: [UNRECOGNIZED DRUG - OTHER] IV SCH ×40 (17:35→17:51)
[2018-06-19] MEDS: AMINOSYN IV SCH ×40 (17:35→17:51)
[2018-06-19] MEDS: CALCIUM GLUCONATE IV SCH ×40 (17:35→17:51)
[2018-06-19] MEDS: XANAX PO PRN (22:52)
[2018-06-19] MEDS: PERCOCET-10 PO PRN (22:53)
[2018-06-20] MEDS: MORPHINE IR PO PRN ×2 (04:05→22:20)
[2018-06-20 07:12] LABS: BASO# 0.01 X1000 (0.0-0.2); BASO% 0.3 % (0.0-0.8); EOS# 0.01 X1000 (0.0-0.7); EOS% 0.3 % (0.0-10.0); HEMATOCRIT 32.5 % (37.0-47.0); HEMOGLOBIN 10.3 g/dL (12.0-16.0); LYMPH# 0.75 X1000 (1.2-3.4); LYMPH% 19.7 % (20.5-51.1); MCH 28.9 PG (27-31); MCHC 31.7 g/dL (33-37); MONO# 0.17 X1000 (0.11-0.59); MONO% 4.5 % (1.7-9.3); NEUT# 2.86 X1000 (1.4-6.5); NEUT% 75.2 % (42.2-75.2); PLT 88 X1000 (130-400); RBC 3.57 XMIL (4.2-5.4)
[2018-06-20 07:20] LABS: AGAP 9; BUN 7 mg/dL (8-22); CALCIUM 8.3 mg/dL (8.8-10.2); CHLORIDE 105 mmol/L (98-107); COSMO 274; CREATININE 0.3 mg/dL (0.5-0.9); ESTIMATED GFR > 60; GLUCOSE 110 mg/dL (70-104); POTASSIUM 3.3 mmol/L (3.5-5.1); SODIUM 138 mmol/L (136-145); TCO2 24 mmol/L (25-35)
[2018-06-20] MEDS: TYLENOL PO PRN (07:49)
[2018-06-20] MEDS ORDERED: CALCIUM GLUCONATE IV SCH ×20 (09:00)
[2018-06-20] MEDS ORDERED: AMINOSYN IV SCH ×20 (09:00)
[2018-06-20] MEDS ORDERED: [UNRECOGNIZED DRUG - OTHER] IV SCH ×20 (09:00)
[2018-06-20] MEDS: CALCIUM GLUCONATE IV SCH ×10 (09:51)
[2018-06-20] MEDS: AMINOSYN IV SCH ×10 (09:51)
[2018-06-20] MEDS: [UNRECOGNIZED DRUG - OTHER] IV SCH ×10 (09:51)
[2018-06-20] MEDS: PERCOCET-10 PO PRN ×2 (10:02→19:17)
[2018-06-20] MEDS: NEURONTIN PO SCH ×3 (10:02→17:38)
[2018-06-20] MEDS: NICODERM PATCH TD SCH (10:03)
[2018-06-20] MEDS: CUBICIN 400 MG in NS 100 ML IV SCH (12:50)
--- NOTE | 2018-06-20 14:06 | INFECTIOUS DISEASE PROGRESS NO ---
DATE: 06/20/2018 PRESENT ILLNESS: The patient has Staph epidermidis bacteremia which I think originates from her Port-A-Cath. Repeat blood cultures are growing gram-positive cocci which most likely will be the same organism as earlier cultures grew and last night, she spiked a fever to 102.6 degrees. It would seem most likely that the infection, namely the Staph bacteremia, is not being controlled well by the patient's antibiotic. MEDICATIONS: The patient is on daptomycin as a single agent. PHYSICAL EXAMINATION: Vital Signs: Temperature is 99.1 degrees, pulse 107, respirations 19, blood pressure 103/70. General: This is an ill-appearing, middle-aged female. She is in no acute distress. Head/eyes/ears/nose/throat: She can hear my spoken words and see near objects. She does not have any white patches on her tongue. Neck: No pain with movement of the neck. Lungs: Clear to auscultation. Cardiovascular: Heart rate is regular. Thorax: Patient has a Port-A-Cath in the left side. The site is not erythematous, swollen, or tender. Neurologic: Patient is alert. She is able to ambulate. There is no tremor. LAB AND X-RAY: There is no new radiographic study. CBC shows a white count of 3800, hemoglobin is 10.3, and platelet count is 88,000. Creatinine is 0.3. GFR is greater than 60. Repeat blood cultures drawn on the 18 of June are growing gram-positive cocci. Repeat blood cultures have been drawn today. ASSESSMENT AND PLAN: Patient has Staph epidermidis bacteremia which I think originates from her Port-A-Cath. If the patient should spike another fever and especially if the repeat blood cultures from today are positive, I see no other course other than to take out the Port-A-Cath and continue with daptomycin. COMORBIDITIES: She has colon cancer with multiple metastatic lesions. cc: Horacio Rangel MD
[2018-06-20] MEDS: LIPOSYN 20% 500 ML IV SCH (15:35)
[2018-06-20] MEDS: SODIUM CHLORIDE 0.9% INJ SCH (15:36)
[2018-06-20] MEDS: PROTONIX IV SCH (15:36)
[2018-06-20] MEDS ORDERED: TYLENOL PO PRN (17:10)
[2018-06-20] MEDS: D5 1/2 NS + KCL 30 MEQ 1,000 ML IV SCH (17:20)
--- NOTE | 2018-06-20 17:44 | PROGRESS NOTE ---
DATE: 06/20/2018 SUBJECTIVE: Today, Ms. Garcia refers to be doing fairly okay. She did have a spike of temperature early this morning at 102.6. She has, however, been spiking temperatures almost every day. OBJECTIVELY: Vitals: Currently blood pressure 94/66, pulse is 93, respirations is 21, temperature is 98.7 degrees, the patient is saturating 100% on room air. General: Ms. Garcia is a 52-year-old female. She is in bed, does not seem to be in any cardiopulmonary distress. Mucosa is pink and moist. Anicteric. Acyanotic. Neck is supple. Chest was clear to auscultation. No crepitations. No rhonchi. Cardiovascular: Regular rate and rhythm. Abdomen is soft. It is tender all over. There are some nodulations in on the supraumbilical area. There is also an old infraumbilical surgical scar. There are some old laparoscopic scars on the anterior abdominal wall as well. Central nervous system: Patient is awake, alert, and oriented. DIAGNOSTIC STUDIES: WBC is 3.80, hemoglobin is 10.5, platelet count of 55,000. Chemistry is also reviewed, potassium is 3.2, and rest of chemistry is completely normal. A blood culture done on the still shows gram-positive cocci. A repeat blood culture this morning is still is pending. ASSESSMENT: 1. Staphylococcus epidermidis (methicillin-resistant Staphylococcus aureus [MRSA]) bacteremia. The patient continues to be bacteremic, and she has been running a temperature. Antibiotics have been changed to daptomycin, and new blood cultures were done today. Infectious Disease is on board and will follow up with both the report and further recommendations from ID. I have discussed the administration of the daptomycin with Dr. Rangel, and we are all okay for that to be administered through the port to make sure if that is the source of the infection, then a high concentration will be obtained. 2. History of colon cancer with peritoneal carcinomatosis. 3. Malignant ascites status post paracenteses. The cytology is positive for malignant cells. 4. Pancytopenia. 5. Hypothyroidism. We will continue with levothyroxine. 6. Gastroesophageal reflux disease (GERD). We will continue with PPI. 7. History of anxiety disorder. In general, Ms. Garcia continues to be febrile and a blood culture up until the of last month was still positive. It is presumed that source is coming from the Port-A-Cath and I think with the MRSA, this eventually will need to be removed. The patient is, however, extremely adamant, wanting to keep the Port-A-Cath for her chemotherapy. I did explain to her that now that she is bacteremic, she is not going to get chemotherapy and that if we have to remove the Port-A-Cath, then we will get the blood clean and then put a Port-A-Cath at a later date. We will, however, wait on the blood culture done today to see if there are any changes. cc: Cooper Connelly MD
[2018-06-21] MEDS: PERCOCET-10 PO PRN ×3 (03:27→19:59)
[2018-06-21 07:05] LABS: BASO# 0.01 X1000 (0.0-0.2); BASO% 0.2 % (0.0-0.8); EOS# 0.02 X1000 (0.0-0.7); EOS% 0.5 % (0.0-10.0); HEMATOCRIT 28.3 % (37.0-47.0); HEMOGLOBIN 8.9 g/dL (12.0-16.0); IMM GRAN# 0.05 X1000 (0.0-0.04); IMM GRAN% 1.2 % (0.0-0.5); LYMPH# 0.99 X1000 (1.2-3.4); LYMPH% 24.1 % (20.5-51.1); MCHC 31.4 g/dL (33-37); MCV 92.2 FL (81-99); MONO# 0.34 X1000 (0.11-0.59); MONO% 8.3 % (1.7-9.3); NEUT% 65.7 % (42.2-75.2); PLT 68 X1000 (130-400); RBC 3.07 XMIL (4.2-5.4); RDW 18.9 % (11.5-14.5); WBC 4.11 X1000 (4.8-10.8)
[2018-06-21 07:14] LABS: AGAP 9; ALB/GLOB RATIO 0.6; ALBUMIN 1.7 g/dL (3.5-5.0); ALKALINE PHOSPHATASE 94 U/L (32-104); BUN 9 mg/dL (8-22); CALCIUM 8.5 mg/dL (8.8-10.2); CHLORIDE 106 mmol/L (98-107); COSMO 272; CREATININE 0.3 mg/dL (0.5-0.9); ESTIMATED GFR > 60; GLUCOSE 120 mg/dL (70-104); GOT 37 U/L (10-30); GPT 12 U/L (10-36); POTASSIUM 3.6 mmol/L (3.5-5.1); SODIUM 136 mmol/L (136-145); TCO2 21 mmol/L (25-35); TOTAL BILIRUBIN 0.38 mg/dL (0.20-1.00); TOTAL PROTEIN 4.5 g/dL (6.3-8.3)
[2018-06-21 07:50] LABS: LYMPHS 22 % (21-51); SEGS 78 % (42-75)
--- NOTE | 2018-06-21 08:00 | Diag Imaging Result Doc PS360 ---
EXAM: CHEST-2 VIEWS INDICATION: fever TECHNIQUE: 2 views COMPARISON: 06/12/2018 FINDINGS: The left chest port is in stable position. The lungs are grossly clear. There is blunting of the posterior costophrenic angle suggesting a possible trace effusions. The cardiomediastinal silhouette and central vasculature are grossly unremarkable. IMPRESSION: Blunting of the posterior costophrenic angle suggesting possible trace effusions. No definite acute pathology, otherwise. Electronically signed by Jake Veras 06/21/2018 7:58 AM
[2018-06-21] MEDS: NEURONTIN PO SCH ×3 (08:37→17:59)
[2018-06-21] MEDS: NICODERM PATCH TD SCH (08:37)
[2018-06-21] MEDS: MORPHINE IR PO PRN (11:42)
[2018-06-21] MEDS ORDERED: DIPRIVAN 1% ONE (12:19)
[2018-06-21] MEDS ORDERED: REGLAN ONE (12:58)
[2018-06-21] MEDS ORDERED: PEPCID ONE (12:59)
[2018-06-21] MEDS: CUBICIN 400 MG in NS 100 ML IV SCH (13:01)
[2018-06-21] MEDS ORDERED: ZEMURON ONE (13:23)
[2018-06-21] MEDS ORDERED: QUELICIN (DOSE) ONE (13:23)
[2018-06-21] MEDS ORDERED: ZOFRAN ONE (13:25)
[2018-06-21] MEDS ORDERED: DECADRON ONE (13:25)
--- NOTE | 2018-06-21 14:07 | Diag Imaging Result Doc PS360 ---
EXAM: CHEST-PORTABLE 06/21/2018 HISTORY: post op CVL TECHNIQUE: AP portable at 1356 COMMENT: There is a right subclavian central venous catheter with its tip just above the right atrium. There is atelectasis in the left base. This appears to have been present on 06/21/2018 prior to the removal of the left Port-A-Cath. It was not present on 06/12/2018. IMPRESSION: Minimal left basilar atelectasis. Electronically signed by Marc Chowdhury 06/21/2018 2:04 PM
[2018-06-21] MEDS: [UNRECOGNIZED DRUG - OTHER] IV SCH ×20 (14:51)
[2018-06-21] MEDS: AMINOSYN IV SCH ×20 (14:51)
[2018-06-21] MEDS: CALCIUM GLUCONATE IV SCH ×20 (14:51)
[2018-06-21] MEDS: D5 1/2 NS + KCL 30 MEQ 1,000 ML IV SCH (14:52)
[2018-06-21] MEDS: LIPOSYN 20% 500 ML IV SCH (14:52)
[2018-06-21] MEDS: SODIUM CHLORIDE 0.9% INJ SCH (14:53)
[2018-06-21] MEDS: PROTONIX IV SCH (14:53)
--- NOTE | 2018-06-21 15:08 | OPERATIVE NOTE ---
PROCEDURE DATE: 06/21/2018 DIAGNOSES: 1. Stage IV colon cancer. 2. Port sepsis. PROCEDURE: Placement of right central line and removal of infected left port. PROCEDURE DETAILS: The patient was brought to the operating room. After satisfactory induction of IV and endotracheal anesthesia, her right and left shoulder areas were prepped and draped in the appropriate manner. With the standard triple-lumen kit, a right central line was placed without difficulty. The tip of the catheter was threaded down the superior vena cava-right atrial junction, flushed with heparinized saline, anchored with 2-0 silk. Sterile dressing was applied. Attention was then taken to the left side. The old port site was incised with removal of the port intact. There was no burst of purulence. No evidence of gross infection. The subcutaneous was subsequently closed with interrupted 3-0 Vicryl and the skin itself with stainless steel clips. Sterile dressing was placed to both areas. The patient was awakened and extubated in the operating room and transferred to recovery. Estimated blood loss was 5-10 mL. cc: Theo Florian MD
--- NOTE | 2018-06-21 16:22 | INFECTIOUS DISEASE PROGRESS NO ---
DATE: 06/21/2018 PRESENT ILLNESS: The patient has a staphylococcal bacteremia which originated from her Port-A- Cath. Today at surgery, Dr. Florian removed the Port-A-Cath on the left side and placed a subclavian catheter on the right side of the chest. MEDICATIONS: The patient is on daptomycin as a single agent. PHYSICAL EXAMINATION: Vital Signs: Temperature is 98.8 degrees, pulse 98, respirations 12, blood pressure 110/88. General: This is an ill-appearing middle-aged female. She is in no acute distress. Thorax: The patient has a dressing over the left part of the chest where the Port-A- Cath was removed, and on the right side the chest, there is a subclavian catheter placed at surgery today by Dr. Florian. Lungs: Clear to auscultation. Cardiovascular: Regular heart rate. Neck: No pain with movement of the neck. Abdomen: Soft and nontender. Neurologic: The patient is alert. She can move her extremities. There is no tremor. DIAGNOSTIC STUDIES: Chest x-ray shows minimal left basilar atelectasis. Creatinine is 0.3, GFR is greater than 60. Liver function studies are normal. CBC shows a white count of 4110, hemoglobin 8.9, and platelet count 68,000. The patient's last blood cultures remain positive for Staphylococcus epidermidis. ASSESSMENT AND PLAN: I plan to continue daptomycin. I plan to treat for at least 2 weeks with day 1 being the first day that the patient's repeat blood cultures are sterile. As regarding placing another Port-A-Cath, I agree with Dr. Florian that we should wait at least 2 weeks, and while we are waiting, we can use the patient's right-sided subclavian catheter for her daptomycin infusions. COMORBIDITIES: The patient has colon cancer with multiple metastatic lesions. cc: Horacio Rangel MD
--- NOTE | 2018-06-21 17:59 | PROGRESS NOTE ---
DATE: 06/21/2018 SUBJECTIVE: Today Ms. Garcia refers to be doing fairly okay. She was somewhat tearful because she continues to spike temperature, and there has been an order for her port to be removed. OBJECTIVE: Vital signs: Blood pressure is 99/64, pulse of 99, respiration is 18, temperature was 101.6 early this morning. General: Ms. Garcia is a 52-year-old female. She looks slightly older than her age. She was in bed, no distress, a little bit tearful. Mucosa was pink and moist. Anicteric. Acyanotic. Neck was supple. No JVD. Chest was clear to auscultation. No crepitations. No rhonchi. Cardiovascular: Regular rate and rhythm. Gastrointestinal: Abdomen was soft, minimally tender. A little nodulation on the supraumbilical area. There is an old infraumbilical surgical scar. There are also some old laparoscopic scars on the anterior abdominal wall. Bowel sounds were present. Central nervous system: Patient was awake, alert, and oriented. There is no focal neurological deficit. DIAGNOSTIC STUDIES: WBC is 4.11, hemoglobin is 8.9, platelet count of 68,000. Chemistry is reviewed, which is completely unremarkable. The patient's albumin is 1.7. The patient's microbiology data continues to show gram-positive cocci in the blood after yesterday blood culture. ASSESSMENT: 1. Persistent Staphylococcus epidermidis (methicillin-resistant Staphylococcus aureus [MRSA] bacteremia). We think the source of the infection is ultimately coming from the port and that this needs to be removed. I have reconsulted Dr. Florian to evaluate removal of the port. 2. History of metastatic colon cancer with peritoneal carcinomatosis. 3. Malignant ascites status post paracentesis. Cytology from the ascitic fluid is positive for malignant cells. 4. Pancytopenia. I think part of it now is because of the ongoing infection. However, it could also be because of the patient's long-standing malignancy. 5. Hypothyroidism. We will continue with the levothyroxine supplements. 6. Gastroesophageal reflux. Patient is on PPI. 7. History of anxiety and situational depression. Stable on antidepressants. 8. Protein-calorie malnutrition. Patient is on TPN. In general, Ms. Garcia continues to be febrile. Blood culture continues to be positive for gram- positive cocci which we think it is the same Staphylococcus epidermidis. The port is slated to be removed today. Hopefully, I will get a peripheral line and repeat the blood cultures probably in the next 48 to 72 hours to have it clean before another line is placed. cc: Cooper Connelly MD
[2018-06-21] MEDS: XANAX PO PRN (22:24)
[2018-06-21] MEDS: PERIDEX MT SCH (22:30)
[2018-06-22] MEDS: XANAX PO PRN ×2 (02:04→23:56)
[2018-06-22] MEDS: AMINOSYN IV SCH ×20 (05:43→17:45)
[2018-06-22] MEDS: [UNRECOGNIZED DRUG - OTHER] IV SCH ×20 (05:43→17:45)
[2018-06-22] MEDS: CALCIUM GLUCONATE IV SCH ×20 (05:43→17:45)
[2018-06-22] MEDS: MORPHINE IR PO PRN ×2 (06:42→23:56)
[2018-06-22 07:11] LABS: BASO# 0.01 X1000 (0.0-0.2); BASO% 0.2 % (0.0-0.8); HEMATOCRIT 30.2 % (37.0-47.0); HEMOGLOBIN 9.5 g/dL (12.0-16.0); IMM GRAN# 0.08 X1000 (0.0-0.04); IMM GRAN% 1.5 % (0.0-0.5); LYMPH# 0.92 X1000 (1.2-3.4); LYMPH% 17.3 % (20.5-51.1); MCH 28.6 PG (27-31); MCHC 31.5 g/dL (33-37); MONO# 0.62 X1000 (0.11-0.59); MONO% 11.6 % (1.7-9.3); NEUT% 69.4 % (42.2-75.2); PLT 70 X1000 (130-400); RBC 3.32 XMIL (4.2-5.4); RDW 18.7 % (11.5-14.5); WBC 5.33 X1000 (4.8-10.8)
[2018-06-22 07:12] LABS: INR 1.03; PROTIME 14.3 Seconds (11.0-16.0)
[2018-06-22 07:13] LABS: PTT 41.8 Seconds (22.3-41.8)
[2018-06-22 07:44] LABS: AGAP 9; BUN 9 mg/dL (8-22); CALCIUM 8.6 mg/dL (8.8-10.2); CHLORIDE 109 mmol/L (98-107); COSMO 280; CREATININE 0.3 mg/dL (0.5-0.9); ESTIMATED GFR > 60; GLUCOSE 139 mg/dL (70-104); SODIUM 140 mmol/L (136-145); TCO2 22 mmol/L (25-35)
[2018-06-22 07:45] LABS: POTASSIUM 5.2 mmol/L (3.5-5.1)
--- NOTE | 2018-06-22 10:17 | Diag Imaging Result Doc PS360 ---
EXAM: US GB < RUQ (LIMITED) 06/22/2018 HISTORY: ultrasound guided paracentesis TECHNIQUE: Right upper quadrant ultrasound (limited.) COMMENT: There is some ascites. This is principally seen in the right subphrenic space. The right kidney is without evidence of hydronephrosis. The liver is slightly hyperechoic in appearance. IMPRESSION: Ascites. Electronically signed by Marc Chowdhury 06/22/2018 10:15 AM
[2018-06-22] MEDS: PERIDEX MT SCH ×2 (10:32→20:13)
[2018-06-22] MEDS: NEURONTIN PO SCH ×3 (10:32→17:43)
[2018-06-22] MEDS: NICODERM PATCH TD SCH (10:32)
[2018-06-22] MEDS: SODIUM CHLORIDE 0.9% INJ SCH (13:07)
[2018-06-22] MEDS: PROTONIX IV SCH (13:07)
[2018-06-22] MEDS: CUBICIN 400 MG in NS 100 ML IV SCH (13:07)
[2018-06-22] MEDS ORDERED: VELTASSA PO ONE (15:44)
--- NOTE | 2018-06-22 16:06 | PROGRESS NOTE ---
DATE: 06/22/2018 SUBJECTIVE: This morning, Ms. Garcia refers to be doing a lot better. She denies fever. OBJECTIVE: Vital signs: Blood pressure is 97/65, pulse of 71, respirations 18, temperature 97.4 degrees, patient is saturating 100% on room air. General: Ms. Garcia is a 52-year-old female. She is in bed. No distress. Mucosa is pink and moist. Anicteric. Acyanotic. Neck: Supple. Chest: Good air entry bilateral. There are no crepitations, no rhonchi. There is a new subclavian catheter central line on the right side. Cardiovascular: Regular rate and rhythm. Gastrointestinal: Abdomen is soft, nontender. Some mild nodulation on the supraumbilical area. There is also an old infraumbilical surgical scar. Bowel sounds are present. Central Nervous System: Patient is awake, alert, and oriented. No focal neurological deficit. DIAGNOSTIC STUDIES: WBC is 5.33, hemoglobin is 9.5, platelet count of 70,000. Chemistry is also reviewed, potassium is about 5.2, the rest of chemistry is unremarkable. So far, blood culture which was done on the has grown the same Staphylococcus epidermidis. ASSESSMENT AND PLAN: 1. Methicillin-resistant Staphylococcus aureus (MRSA) bacteremia associated with Port-A-Cath. This was removed yesterday. A new subclavian has been inserted during surgery. The patient is now completely afebrile. We are going to repeat the blood cultures tomorrow and continue with the current antibiotics. 2. History of metastatic colon cancer with peritoneal carcinomatosis associated with malignant ascites. The patient is status post paracentesis. Cytology is positive for malignant cells. 3. Hypothyroidism. We will continue with levothyroxine supplementation. 4. Protein-calorie malnutrition. Patient is on TPN and is also getting nutritional support. She told me today that she thinks she can eat, so we are going to start her on some soft GI diet to see if she tolerates it. As her appetite gets better and she is tolerating her enteral feeding, we will be cutting back on the TPN. 5. Hyperkalemia. I have discontinue all the potassium-containing fluids, and we will give the patient a one-time dose of diltiazem. In general, I think Ms. Garcia is doing fairly okay. She has been afebrile since yesterday. We are going to continue to monitor her vitals. We will repeat her blood cultures tomorrow and follow up with further recommendations from ID. We have also consulted Palliative Medicine today. cc: Cooper Connelly MD
[2018-06-22] MEDS: LIPOSYN 20% 500 ML IV SCH (17:42)
[2018-06-22] MEDS: PERCOCET-10 PO PRN (20:12)
[2018-06-23] MEDS: PERCOCET-10 PO PRN ×3 (03:53→22:34)
[2018-06-23 07:59] LABS: BASO# 0.01 X1000 (0.0-0.2); BASO% 0.2 % (0.0-0.8); HEMATOCRIT 29.1 % (37.0-47.0); IMM GRAN# 0.05 X1000 (0.0-0.04); IMM GRAN% 0.8 % (0.0-0.5); LYMPH# 1.78 X1000 (1.2-3.4); LYMPH% 28.6 % (20.5-51.1); MCH 28.7 PG (27-31); MCHC 30.9 g/dL (33-37); MCV 92.7 FL (81-99); MONO# 0.57 X1000 (0.11-0.59); MONO% 9.1 % (1.7-9.3); NEUT# 3.82 X1000 (1.4-6.5); NEUT% 61.3 % (42.2-75.2); PLT 95 X1000 (130-400); RBC 3.14 XMIL (4.2-5.4); WBC 6.23 X1000 (4.8-10.8)
[2018-06-23 08:36] LABS: BANDS 2 % (0-1); LYMPHS 32 % (21-51); MONO 4 % (1-9); SEGS 62 % (42-75)
[2018-06-23] MEDS: AMINOSYN IV SCH ×20 (09:11→23:34)
[2018-06-23] MEDS: [UNRECOGNIZED DRUG - OTHER] IV SCH ×20 (09:11→23:34)
[2018-06-23] MEDS: CALCIUM GLUCONATE IV SCH ×20 (09:11→23:34)
[2018-06-23] MEDS: PERIDEX MT SCH ×2 (09:25→22:35)
[2018-06-23] MEDS: NEURONTIN PO SCH ×3 (09:25→16:33)
[2018-06-23 09:55] LABS: AGAP 10; ALB/GLOB RATIO 0.6; ALBUMIN 1.8 g/dL (3.5-5.0); ALKALINE PHOSPHATASE 146 U/L (32-104); BUN 13 mg/dL (8-22); CALCIUM 8.7 mg/dL (8.8-10.2); CHLORIDE 110 mmol/L (98-107); COSMO 279; CREATININE 0.3 mg/dL (0.5-0.9); ESTIMATED GFR > 60; GLUCOSE 84 mg/dL (70-104); GOT 249 U/L (10-30); GPT 125 U/L (10-36); POTASSIUM 4.8 mmol/L (3.5-5.1); SODIUM 140 mmol/L (136-145); TCO2 20 mmol/L (25-35); TOTAL BILIRUBIN 0.21 mg/dL (0.20-1.00); TOTAL PROTEIN 4.8 g/dL (6.3-8.3)
[2018-06-23] MEDS ORDERED: COLACE PO PRN ×2 (10:52→12:50)
[2018-06-23] MEDS ORDERED: COLACE PO ONE (10:53)
[2018-06-23] MEDS: CUBICIN 400 MG in NS 100 ML IV SCH (12:56)
[2018-06-23] MEDS: SODIUM CHLORIDE 0.9% INJ SCH (13:04)
[2018-06-23] MEDS: PROTONIX IV SCH (13:04)
--- NOTE | 2018-06-23 13:39 | PROGRESS NOTE ---
DATE: 06/23/2018 SUBJECTIVE: This morning Ms. Garcia refers to be doing a whole lot better. She was getting up with physical therapy. OBJECTIVE: Vitals: Blood pressure is 98/68, pulse is 91, respiration is 16, temperature 98 degrees. Patient was saturating 100% on room air. General: Ms. Garcia is a 52-year-old female she was in a chair. She looks slightly older than her biological age. Mucosa is pink and moist. Anicteric, acyanotic. Neck: Supple. Chest: Good air entry bilateral, there is no crepitations, no rhonchi. Cardiovascular: Regular rate and rhythm. No murmurs. Abdomen: Soft, nontender. There is a mild nodulation on the supraumbilical area. There is also an old infraumbilical surgical scar. Bowel sounds are present. FINANCIAL WRITER: Patient is awake, alert and oriented. There is no focal neurological deficit. Musculoskeletal: A newly inserted right subclavian catheter on the anterior chest wall. LABORATORY DATA: WBC is 6.25, hemoglobin is 9.0, platelet count of 95,000 which is improving. Chemistry is also reviewed, is unremarkable. AST and ALT have gone up some. So far blood culture has been repeated today. We are still pending the official report on that. ASSESSMENT: 1. Staph epidermidis (methicillin-resistant Staphylococcus aureus bacteremia) associated with Port-A-Cath (central line associated bloodstream infection). The port has been removed. Blood cultures have been repeated. A new central line has been inserted. Will continue with the current daptomycin antibiotic. 2. History of metastatic colon cancer to peritoneum with peritoneal carcinomatosis associated with malignant ascites. Patient had paracenteses initially on presentation. Cytology is positive for malignant cells. Patient follows up with Dr. Ojeda and she is on adjuvant therapy. 3. Hypothyroidism. Will continue with the levothyroxine supplementation. 4. Protein calorie malnutrition. Patient is currently on total parenteral nutrition. She is also tolerating her diet which was started yesterday. 5. Hyperkalemia improved . 6. Transaminitis, I think this is probably drug induced. Patient is also on total parenteral nutrition. We will get dietitian to readjust the elements and avoid any hepatotoxic drug. cc: MD VANNESA Barry
--- NOTE | 2018-06-23 16:29 | INFECTIOUS DISEASE PROGRESS NO ---
DATE: 06/23/2018 HISTORY OF PRESENT ILLNESS: The patient has a staphylococcal bacteremia which originated from the patient's Port-A-Cath. Her Port-A-Cath has been removed by Dr. Almeida and since that time, the patient has remained afebrile, and her repeat blood cultures have been drawn today. MEDICATIONS: The patient is on daptomycin as a single agent. PHYSICAL EXAMINATION: Vital Signs: Temperature is 97.4 degrees, pulse 70, respirations 15, blood pressure 90/60. General: This is an ill-appearing middle-aged female. She is in no acute distress. Thorax: The patient has a right-sided subclavian catheter. The site is not erythematous or swollen. The left side where the Port-A-Cath was removed has a dressing on it. The dressing is intact. Lungs: Clear to auscultation. Cardiovascular: Heart rate is regular. Abdomen: Soft and nontender. Neurologic: The patient is alert. She can move her extremities. There is no tremor. LAB AND RADIOGRAPHIC STUDIES: CBC today shows a white count of 6230, hemoglobin is 9 and platelet count is 95,000. Creatinine is 0.3, GFR is greater than 60. CK is 12. ASSESSMENT AND PLAN: The patient has staphylococcal bacteremia originating from her Port-A-Cath. The Port-A-Cath has been removed and if the patient's 2 blood cultures drawn today are sterile in 2 days, the patient could go home on daptomycin for a 2 week period. [facility] has been notified and they will be supplying the patient her medication. The patient will be given an appointment to be seen in my office in 2 weeks from around her discharge time. At that time, hopefully, the antibiotics can be discontinued and the subclavian can be removed. COMORBIDITIES: The patient has colon cancer with multiple metastatic lesions. cc: Horacio Rangel MD
[2018-06-23] MEDS: LIPOSYN 20% 500 ML IV SCH (16:33)
[2018-06-23] MEDS: MORPHINE IR PO PRN (16:34)
[2018-06-23 16:54] LABS: MAGNESIUM 1.8 mg/dL (1.5-2.7); PHOSPHORUS 5.3 mg/dL (2.7-4.5)
[2018-06-23] MEDS: XANAX PO PRN (22:34)
[2018-06-23] MEDS: COMPAZINE IV PRN (23:34)
[2018-06-24] MEDS: COMPAZINE IV PRN ×2 (05:35→16:28)
[2018-06-24 07:44] LABS: BASO# 0.02 X1000 (0.0-0.2); BASO% 0.3 % (0.0-0.8); EOS# 0.01 X1000 (0.0-0.7); EOS% 0.2 % (0.0-10.0); HEMATOCRIT 30.4 % (37.0-47.0); HEMOGLOBIN 9.6 g/dL (12.0-16.0); IMM GRAN# 0.08 X1000 (0.0-0.04); IMM GRAN% 1.3 % (0.0-0.5); LYMPH# 2.02 X1000 (1.2-3.4); LYMPH% 32.2 % (20.5-51.1); MCH 29.3 PG (27-31); MCHC 31.6 g/dL (33-37); MCV 92.7 FL (81-99); MONO% 12.7 % (1.7-9.3); NEUT# 3.35 X1000 (1.4-6.5); NEUT% 53.3 % (42.2-75.2); PLT 116 X1000 (130-400); RBC 3.28 XMIL (4.2-5.4); RDW 19.1 % (11.5-14.5); WBC 6.28 X1000 (4.8-10.8)
[2018-06-24 07:55] LABS: AGAP 10; ALB/GLOB RATIO 0.6; ALKALINE PHOSPHATASE 220 U/L (32-104); BUN 11 mg/dL (8-22); CALCIUM 8.5 mg/dL (8.8-10.2); CHLORIDE 104 mmol/L (98-107); COSMO 269; CREATININE 0.3 mg/dL (0.5-0.9); ESTIMATED GFR > 60; GLUCOSE 90 mg/dL (70-104); GOT 246 U/L (10-30); GPT 192 U/L (10-36); POTASSIUM 4.5 mmol/L (3.5-5.1); SODIUM 135 mmol/L (136-145); TCO2 21 mmol/L (25-35); TOTAL BILIRUBIN 0.29 mg/dL (0.20-1.00); TOTAL PROTEIN 5.3 g/dL (6.3-8.3)
[2018-06-24] MEDS: MORPHINE IR PO PRN ×2 (08:40→22:02)
[2018-06-24] MEDS ORDERED: AMINOSYN IV SCH ×10 (09:24)
[2018-06-24] MEDS ORDERED: [UNRECOGNIZED DRUG - OTHER] IV SCH ×10 (09:24)
[2018-06-24] MEDS ORDERED: CALCIUM GLUCONATE IV SCH ×20 (09:24→11:00)
[2018-06-24] MEDS ORDERED: MAGNESIUM SULFATE IV SCH ×10 (11:00)
[2018-06-24] MEDS ORDERED: CALCIUM CHLORIDE IV SCH ×10 (11:00)
[2018-06-24] MEDS ORDERED: [UNRECOGNIZED DRUG - OTHER] IV SCH ×10 (11:00)
[2018-06-24] MEDS: PERIDEX MT SCH ×2 (11:31→22:03)
[2018-06-24] MEDS: NEURONTIN PO SCH ×3 (11:31→17:56)
[2018-06-24] MEDS ORDERED: MORPHINE IV ONE (12:19)
[2018-06-24] MEDS: CUBICIN 400 MG in NS 100 ML IV SCH (12:37)
[2018-06-24] MEDS: ZOFRAN IV PRN (13:10)
[2018-06-24] MEDS: PROTONIX IV SCH (14:00)
--- NOTE | 2018-06-24 15:26 | PROGRESS NOTE ---
DATE: 06/24/2018 SUBJECTIVE: This morning Ms. Garcia stated refers to be doing fairly okay. She says she has been hurting everywhere and it is because we have discontinued her pain medications which contain Tylenol. OBJECTIVE: Vital signs: Blood pressure is 106/67, pulse is 101, respiration is 20, temperature is 98.5 degrees. The patient has been afebrile for the past 3 days. General: Ms. Garcia is a 52- year-old female. She is in bed. She is not in any cardiopulmonary distress. She looks older than her age. HEENT: Mucosa is pink and moist. Anicteric. Acyanotic. Neck: Supple. Chest: Good air entry bilaterally. No crepitations. No rhonchi. Cardiovascular: Regular rate and rhythm. No murmurs, no rubs, no gallops. GI: Abdomen is soft. It is tender all over the abdominal wall but no rebound, no guarding. There are some nodulations over the suprapubic area. There is an old infraumbilical surgical scar. Bowel sounds are present. CAMPUS COORDINATOR: Patient is awake, alert, oriented. No focal neurological deficit. LABORATORY DATA: WBC is 6.29, hemoglobin is 9.6, platelet count of 116,000. Chemistry is also reviewed. Unremarkable except for AST that is 246, ALT has gone up to 192. CURRENT MEDICATIONS: Have all been reviewed. ASSESSMENT: 1. Staph epidermidis (MRSA central line associated bloodstream infection). Port has been removed. The patient has been afebrile for the past 3 days. Repeat blood cultures done on the is still pending final report. 2. History of metastatic colon cancer to peritoneum with peritoneal carcinomatosis associated with malignant ascites. The patient is status post paracenteses. Cytology was positive for malignant cells. The patient follows up with Dr. Ojeda. 3. Hypothyroidism, will continue with thyroid supplementation. 4. Protein calorie malnutrition. Patient was on TPN, but she is tolerating her enteral feeding. So, TPN will be discontinued because of elevated liver enzymes and continue encouraging oral enteral intake with supplements. 5. Hyperkalemia, improved. 6. Transaminitis. This has gone up slightly this morning. I have discontinue all medications that are hepatotoxic especially Tylenol containing elements. I have also discontinued the TPN and we will do viral serology and go from there. We will repeat the liver enzymes tomorrow morning and see the levels. 7. Chronic pain syndrome. We are going to optimize her pain medications. cc: Cooper Connelly MD
[2018-06-24] MEDS: MORPHINE IV PRN (16:20)
[2018-06-24] MEDS: XANAX PO PRN ×2 (17:57→22:02)
[2018-06-25] MEDS: MORPHINE IV PRN ×2 (01:39→06:08)
[2018-06-25] MEDS: XANAX PO PRN (02:16)
[2018-06-25 07:01] LABS: ALB/GLOB RATIO 0.6; ALBUMIN 2.1 g/dL (3.5-5.0); DIRECT BILIRUBIN 0.2 mg/dL (0.00-0.20); TOTAL BILIRUBIN 0.84 mg/dL (0.20-1.00); TOTAL PROTEIN 5.9 g/dL (6.3-8.3)
[2018-06-25 07:42] VITALS: BP 100/65
--- NOTE | 2018-06-25 11:31 | DISCHARGE SUMMARY ---
ADMISSION DATE: 06/06/2018 DISCHARGE DATE: 06/25/2018 DISPOSITION: Disposition is home with home health. FOLLOW UP: 1. Dr. Barajas. 2. Dr. Florian. 3. Dr. Rangel. 4. Dr. Funk. CONSULTATION DURING THIS ADMISSION: 1. Heme-Onc was consulted. Patient was seen by Dr. Rossi. 2. ID was consulted. Patient was seen by Dr. Rangel. 3. Surgery was consulted. Patient was seen by Dr. Florian. INVASIVE PROCEDURES DURING THIS ADMISSION: 1. Abdominal paracenteses was done by Dr. Florian. 1.5 L of ascitic fluid was removed. 2. A right subclavian central line placement and removal of a left port was also done by Dr. Florian. ADMISSION DIAGNOSIS: 1. Ileus versus small partial small bowel obstruction. 2. Right colon cancer, on chemotherapy. 3. Hypokalemia. 4. Clinical dehydration. 5. Irritable bowel syndrome. DIAGNOSIS AT THE TIME OF DISCHARGE: 1. Staphylococcus epidermidis (Methicillin resistant staphylococcus aureus central line associated bloodstream infection). Port was removed. A right subclavian central line was placed. Subsequent blood cultures have come back negative for 48 hours. 2. History of metastatic colon cancer to peritoneum with peritoneal carcinomatosis associated with malignant ascites. The patient had laparoscopic paracenteses. 1.5 L was removed. Cytology was positive for malignant cells. Patient follows up with Dr. Ojeda. 3. Hypothyroidism. Patient will continue with thyroid supplements. 4. Protein calorie malnutrition. Patient was evaluated by the dietitian. At some point she was on total parenteral nutrition. Her appetite has progressively improved and she is now back to enteral feeding with supplements. 5. Hyperkalemia, resolved. 6. Transaminitis presumably drug-induced. This is improving. Tylenol containing substances were discontinued. Total parenteral nutrition was also discontinued. 7. Chronic pain syndrome patient is on pain medications. PRESENTING COMPLAINT: Abdominal pain. HISTORY OF PRESENTING COMPLAINT: Ms Garcia is a 52-year-old female who is known to have colon cancer, follows up with Dr. Ojeda, came to the emergency department because of abdominal pain. A CT scan did show worsening omental thickening and ascites which was concerning for malignancy. The patient was subsequently admitted to the medical floor for management. HOSPITAL COURSE: The patient was initially admitted, was started on broad-spectrum antibiotics and was kept NPO because of the suspicion of a small bowel partial small bowel obstruction. During the hospital course, it was noted that the patient's ascites was causing most of her abdominal discomfort. A decision was made to do a paracentesis. This was done by surgery (Dr. Florian). 1.5 L was removed. The patient felt better from abdominal standpoint. Cytology came back positive for malignant cells. We think this is a metastasis from her colon cancer which has caused peritoneal carcinomatosis complicated with ascites. During the hospital course Ms. Garcia also continued to be febrile, so blood cultures were done which showed Staphylococcus epidermidis. This was treated. However, it continued to be persistently positive blood culture so a decision was made to remove the Port-A-Cath. This was done successfully by surgery and a new central line was placed. Subsequent blood cultures which was done on 06/23/2018 have come back negative for 48 hours. Ms. Garcia was seen in the hospital by Infectious Disease, Heme-Onc and surgery would truly appreciated their valuable input in the care of Ms. Garcia. This morning Ms. Garcia refers to be feeling a lot better. She has been afebrile for more than 72 hours. She is tolerating enteral feeding. Her current vitals blood pressure is 100/65, pulse is 101, respiration is 18, temperature is 98.6 degrees. Patient is saturating about 94% on room air. She is clinically stable for discharge. She is going to follow up with: 1. Dr. Rangel. 2. Dr. Ojeda-and Dr. Barajas. 3. Her primary care doctor Dr. Nikkie Funk. 4. All the discharge instructions have been discussed with her. She is also going to be getting home health and [facility] for her IV antibiotics. DISCHARGE MEDICATIONS: Include: 1. Alprazolam 2 mg 3 times per day. 2. Zofran 4 mg p.o. every 4 hours p.r.n. 3. Colace 100 mg daily. 4. Gabapentin 100 mg 3 times per day. 5. Morphine sulfate 50 mg b.i.d. 6. Compazine 10 mg p.o. every 4 hours p.r.n. 7. Fentanyl patch. 8. Omeprazole 20 mg daily. 9. Trazodone 50 mg daily. 10. Daptomycin 400 IV daily. Time spent for discharge is 37 minutes. cc: CooperMD Horacio hCan MD Hugh Nabers Sammy Becdach, MD Martha Reed, MD
[2018-06-26 10:28] LABS: HEPATITIS PROFILE ACUTE SEE COMMENTS
== END 2018-06-25 10:56 | disposition home health service (06) | DRG 357 ==
LOC: ED 13:15 → 4N 19:08 → SUATTDRO 19:08
PROVIDERS: ATTEND Internal Medicine
CPT/HCPCS: 36430; 49083; 71010; 71020; 71045; 71046; 74000; 74018; 74022; 74177; 74249; 76705; 80048; 80053; 80074; 80076; 81001; 82465; 82550; 82948; 83690; 83735; 84100; 84134; 84450; 84478; 85025; 85610; 85730; 86850; 86900; 86901; 86920; 87040; 87077; 87088; 87186; 88300; 93306; 94761; 94799; 96361; 96374; 96375; 96376; 97110; 97162; 97530; 99283; 99285; A9270; C8929; C9113; J0330; J0610; J0780; J0878; J1100; J1170; J1200; J1956; J2185; J2250; J2270; J2405; J2550; J2765; J3370; J3475; J3480; J7030; J7040; J7050; J7120; P9016; Q9957; Q9967; S0028; S0164; XXXXX

== ENCOUNTER 2018-07-04 16:07 | Inpatient (IN) ==
[2018-07-04] MEDS ORDERED: DILAUDID IV ONE ×3 (19:05→21:42)
[2018-07-04 19:48] LABS: BASO# 0.04 X1000 (0.0-0.2); BASO% 0.5 % (0.0-0.8); EOS# 0.02 X1000 (0.0-0.7); EOS% 0.2 % (0.0-10.0); HEMATOCRIT 33.6 % (37.0-47.0); HEMOGLOBIN 10.6 g/dL (12.0-16.0); LYMPH# 1.17 X1000 (1.2-3.4); MCH 28.2 PG (27-31); MCHC 31.5 g/dL (33-37); MCV 89.4 FL (81-99); MONO# 0.91 X1000 (0.11-0.59); MONO% 10.9 % (1.7-9.3); MPV 11.7 FL (7.4-10.4); NEUT# 6.23 X1000 (1.4-6.5); NEUT% 74.4 % (42.2-75.2); PLT 250 X1000 (130-400); RBC 3.76 XMIL (4.2-5.4); RDW 18.7 % (11.5-14.5); WBC 8.37 X1000 (4.8-10.8)
[2018-07-04] MEDS ORDERED: SODIUM CHLORIDE 0.9% INJ ONE (20:02)
[2018-07-04] MEDS ORDERED: PROTONIX IV ONE (20:02)
[2018-07-04 20:04] LABS: AGAP 14; ALB/GLOB RATIO 0.6; ALBUMIN 2.8 g/dL (3.5-5.0); ALKALINE PHOSPHATASE 109 U/L (32-104); BUN 9 mg/dL (8-22); CALCIUM 8.8 mg/dL (8.8-10.2); CHLORIDE 92 mmol/L (98-107); COSMO 259; CREATININE 0.6 mg/dL (0.5-0.9); ESTIMATED GFR > 60; GLUCOSE 92 mg/dL (70-104); GOT 29 U/L (10-30); GPT 12 U/L (10-36); POTASSIUM 3.9 mmol/L (3.5-5.1); SODIUM 130 mmol/L (136-145); TCO2 24 mmol/L (25-35); TOTAL PROTEIN 7.4 g/dL (6.3-8.3)
--- NOTE | 2018-07-04 21:29 | Diag Imaging Result Doc PS360 ---
EXAM: CT ABD/PELVIS W/IV CONT ONLY HISTORY: abdominal distension, no BM x 6 days, Hx SBO, TECHNIQUE: CT abdomen and pelvis with intravenous contrast COMPARISON: 06/06/2018 FINDINGS: Interval development of tiny pleural effusions. Previously there was a small amount of ascites. There is now a large amount of abdominal ascites. This is most prominent in the left lower quadrant. The liver is nodular. Normal spleen and pancreas. The gallbladder has been removed. Normal adrenal glands and kidneys. No aortic aneurysm. No bowel obstruction. Prominent stool within the colon. There are sutures in the right lower quadrant. There is omental thickening. The urinary bladder is quite distended. The uterus has been removed. There is nonocclusive thrombus within the right superficial femoral vein and common femoral vein. IMPRESSION: 1. Interval development of a large amount of ascites most prominent in the left lower quadrant. 2. Constipation 3. Development of deep venous thrombosis in the right common femoral vein and superficial femoral vein. This report was discussed with Dr. Melgar in the emergency room on 07/04/2018 at 9:25 PM and was readback. This exam was performed using automated exposure control, adjustment of mA or kV according to patient size, and/or use of iterative reconstruction technique. Electronically signed by Elmer Britton 07/04/2018 9:26 PM
[2018-07-04] MEDS ORDERED: XARELTO PO ONE (21:41)
[2018-07-04] MEDS: MIRALAX PO ONE ×2 (21:42→22:03)
[2018-07-04] MEDS: DULCOLAX PR ONE ×2 (21:42)
[2018-07-04] MEDS ORDERED: LOVENOX 1 MG/KG SUBQ ONE (21:58)
[2018-07-04] MEDS ORDERED: NS 1,000 ML IV ONE (22:06)
--- NOTE | 2018-07-04 22:08 | PROVIDER DOCUMENTATION ---
This chart was entered by Nash Schaefer Scribe, acting as scribe for Avinash Melgar MD. HPI-Abdominal Pain/GI Problem - General Chief Complaint: Constipation Stated Complaint: CONSTIPATION/CANCER PT Time Seen by Provider: 07/04/18 18:55 Source: patient Allergies/Adverse Reactions: Patient Allergies Allergy/AdvReac Type Severity Reaction Status Date / Time acetaminophen [From Lortab] Allergy HIVES Verified 06/04/18 16:34 amoxicillin Allergy RASH Verified 06/04/18 16:34 cephalexin monohydrate * Allergy RASH Verified 06/04/18 16:34 [From Keflex] clarithromycin [From Biaxin] Allergy HIVES Verified 06/04/18 16:34 hydrocodone bitartrate * Allergy HIVES Verified 06/04/18 16:34 [From Lortab] ibuprofen [From Motrin] Allergy RASH Verified 06/04/18 16:34 Latex, Natural Rubber Allergy RASH Verified 06/04/18 16:34 lidocaine HCl * Allergy SWELLING Verified 06/04/18 16:34 [From Xylocaine] loracarbef [From Lorabid] Allergy RASH Verified 06/04/18 16:34 risperidone [From Risperdal] Allergy SHORTNESS Verified 06/04/18 16:34 OF BREATH fentanyl AdvReac NAUSEA/VOMI Verified 06/04/18 16:34 TING Home Medications: Home Medication List Medication Instructions Recorded Confirmed Last Taken Type Alprazolam [Xanax] 2 mg PO TID 08/25/15 06/07/18 06/04/18 12:00 History Ondansetron HCl [Zofran] 4 mg PO Q4H PRN PRN #10 tablet 10/18/17 06/07/18 06/03/18 Rx Docusate Sodium 100 mg PO QHS 06/04/18 06/07/18 06/03/18 History Gabapentin 100 mg PO TID 06/04/18 06/07/18 06/04/18 12:00 History Morphine Sulfate 15 mg PO BID 06/04/18 06/07/18 06/04/18 10:00 History Prochlorperazine [Compazine] 10 mg PO Q4HR 06/04/18 06/07/18 06/04/18 History Promethazine [Phenergan] 25 mg PO Q6H PRN PRN 06/04/18 06/07/18 06/03/18 History Fentanyl 25 mcg TOP Q3DAYS 06/09/18 06/09/18 Unknown History Omeprazole [Prilosec] 20 mg PO DAILY@0700 #30 cap 06/25/18 Unknown Rx Trazodone [Desyrel] 50 mg PO HS PRN PRN tab 06/25/18 Unknown Rx Hydromorphone [Dilaudid] 2 mg PO Q3H PRN PRN 3 Days #20 tab 07/04/18 Unknown Rx Rivaroxaban [Xarelto] 15 mg PO BID 30 Days #60 tab 07/04/18 Unknown Rx - History of Present Illness-ABD Nature of Presenting Problems: Pt is a 53 y/o F presents to the ED with no BM for 6 days. PT reports she was discharged from the hospital 8 days from a 3 weeks stay for a bowel obstruction. She report she called Dr Rodney office and was given Lamodal, She reports abdominal pain and mild nausea. Pt has a right subclavian for antibiotic for staff infection followed by Dr Rangel with Infectious disease. Abdominal Pain Onset Location: reports: generalized abdomen Pain Radiation: reports: no radiation Quality of Pain: reports: dull Severity in ED: reports: mild Onset/Duration: reports: 6 days ago Timing: reports: still present Activities at Onset: reports: none Exposure to sick contacts?: No Associated Symptoms: reports: nausea. denies: chest pain, cough, diarrhea, fever/chills, shortness of breath, vomiting, weakness, trouble walking Last BM: 6 days ago Review of Systems - Adult - REVIEW OF SYSTEMS - ADULT Constitutional: denies: chills, fever Eyes: reports: no symptoms reported Ears, Nose, Mouth & Throat: reports: no symptoms reported Cardiovascular: denies: chest pain, edema Respiratory: denies: cough, shortness of breath Gastrointestinal: reports: abdominal pain, nausea. denies: diarrhea, rectal bleeding, vomiting Genitourinary: reports: no symptoms reported Musculoskeletal: denies: back pain, neck pain Integumentary: reports: no symptoms reported Neurological: denies: dizziness/vertigo, headache/migraines Psychiatric: reports: no symptoms reported Endocrine: reports: no symptoms reported Hematologic/Lymphatic: reports: no symptoms reported Allergic/Immunologic: reports: no symptoms reported All Other Systems: Reviewed and Negative Past History - Adult - PAST MEDICAL HISTORY-ADULT Review of Records: reports: Old Records Reviewed, Nursing Assessment Review, Medications Reviewed Major Childhood Illnesses: reports: denies history Cardiovascular: reports: denies history, HTN Respiratory: reports: denies history Gastrointestinal: reports: denies history Obstetrical/Gynecological: reports: denies history Genitourinary: reports: denies history Musculoskeletal: reports: denies history Neurological: reports: denies history Psychiatric: reports: bipolar Endocrine/Immune: reports: denies history, thyroid disorder Other Conditions: reports: denies history - PRIOR SURGERIES/PROCEDURES Surgical/Procedure History: reports: BTL - IMMUNIZATION STATUS Childhood Immunizations: See Nurse Assessment Flu Vaccine: See Nurse Assessment - FAMILY HISTORY Family History: reviewed, not pertinent - SOCIAL HISTORY Smoking: cigarettes, less than 1 pack/day Living Situation: family Physical Exam-General - PHYSICAL EXAM-ADULT Initial Vital Signs Reviewed: Yes - CONSTITUTIONAL General Appearance: appears well, alert, no apparent distress - EYES Eyes: PERRL/EOMI, pink conjunctivae - HEAD, EARS, NOSE, MOUTH & THROAT HENMT: moist mucous membranes, normal ENT inspection, pharynx normal - NECK Neck: non-tender, full range of motion, supple, normal inspection - RESPIRATORY Respiratory: lungs clear, normal breath sounds, no pleuratic chest pain, no respiratory distress, no accessory muscle use - CARDIOVASCULAR Cardiovascular: normal peripheral pulses, tachycardia - GASTROINTESTINAL (ABDOMEN) Abdominal Exam: normal bowel sounds, soft, distended, tenderness (diffuse). negative: guarding - MUSCULOSKELETAL Back Exam: normal inspection, no CVA tenderness, no vertebral tenderness Extremity: normal range of motion, non-tender, normal gait, normal inspection, no pedal edema - SKIN Integumentary: normal color, normal turgor, warm/dry - NEUROLOGIC Neurologic: grossly normal, no motor/sensory deficits - PSYCHIATRIC Psych/Mental Status: normal mood/affect, normal thought content, normal thought process, oriented x 3 Progress - PLAN OF CARE/RESULTS Progress/Plan/Lab Results: Vital Signs - 8 hr 07/04/18 16:09 07/04/18 17:33 Temperature 97.6 F 97.9 F Pulse Rate 116 H 100 H Respiratory Rate 18 18 Blood Pressure 97/75 91/67 O2 Sat by Pulse Oximetry 98 99 A/P large volum ascites and new DVT in right common femoral vein. constipation, stage 4 Colon cancer with mets . will admit. Result Diagrams: 07/04/18 19:44 07/04/18 19:44 - CT/MRI 1 CT Study: Abdomen, Pelvis Impression: Abnormal ( EXAM: CT ABD/PELVIS W/IV CONT ONLY HISTORY: abdominal distension, no BM x 6 days, Hx SBO, TECHNIQUE: CT abdomen and pelvis with intravenous contrast COMPARISON: 06/06/2018 FINDINGS: Interval development of tiny pleural effusions. Previously there was a small amount of ascites. There is now a large amount of abdominal ascites. This is most prominent in the left lower quadrant. The liver is nodular. Normal spleen and pancreas. The gallbladder has been removed. Normal adrenal glands and kidneys. No aortic aneurysm. No bowel obstruction. Prominent stool within the colon. There are sutures in the right lower quadrant. There is omental thickening. The urinary bladder is quite distended. The uterus has been removed. There is nonocclusive thrombus within the right superficial femoral vein and common femoral vein. IMPRESSION: 1. Interval development of a large amount of ascites most prominent in the left lower quadrant. 2. Constipation 3. Development of deep venous thrombosis in the right common femoral vein and superficial femoral vein. This report was discussed with Dr. Melgar in the emergency room on 07/04/2018 at 9:25 PM and was readback. This exam was performed using automated exposure control, adjustment of mA or kV according to patient size, and/or use of iterative reconstruction technique. Electronically signed by Elmer Britton 07/04/2018 9:26 PM) - CONSULTS/PCP/HOSPITALIST Notification #1 *Consult/PCP/Hospitalist*: Hospitalist- Dr Vanegas Time Discussed: 21:57 Reason/Comments: Admission Consult Disposition: Admit (accepts) Departure - Departure Date of Disposition Decision: 07/04/18 Time of Disposition Decision: 22:06 DIAGNOSIS: DVT (deep venous thrombosis), Ascites Disposition: ADMITTED INPATIENT 09 Certified Medical Emergency: Emergent Condition: Stable Additional Freetext Instructions: We have examined and treated you today on an emergency basis only. This was not a substitute for, or an effort to provide, complete medical care. In most cases, you must let your doctor check you again. Tell your doctor about any new or lasting problems. We cannot recognize and treat all injuries or illnesses in one Emergency Department visit. If you had special tests, such as X-rays or CT scans, will be reviewed by radiologist and will call you if there are any new suggestions Follow up with primary care provider in 1 to 2 days if no improvement. If you do not have a primary care provider, you need to choose one as soon as possible. Take medicines as prescribed. Monitor for any side effects or adverse events from medications. If any side effect, adverse event or rash develops, or if you suspect any other adverse reaction to the medication, then discontinue the medication immediately and contact clinic /PCP or go to the nearest ER. Narcotic meds / sedative meds instruction - patent advised not to drive, operate any machinery or go into water after taking meds as it may impair mental ability to react to the situation in an appropriate manner. Continue other current medicines. Follow up with PCP within 24-48 hours, or sooner if symptoms worsen or fail to improve. Patient / guardian verbalizes understanding of treatment plan, medication, and side effects and agrees with treatment plan. Patient leaves ER in stable condition and ambulatory state. Return to ER as needed. Discharge instructions reviewed verbally and given to patient in written form. Follow up with primary care provider. Prescriptions: Hydromorphone [Dilaudid] 2 mg PO Q3H PRN PRN 3 Days #20 tab PRN Reason: Pain Rivaroxaban [Xarelto] 15 mg PO BID 30 Days #60 tab Referrals and Follow-Ups: Nikkie Nicholson MD [Primary Care Provider] - - Critical Care Note This patient required my direct & personal management of CC.: No Attestation - Physician/ EVELIA Attestation Patient care was provided by Advanced Practice Provider:: No The physician spent face to face time with patient:: Yes Advanced Practice Provider documentation review:: Supervising physician onsite and consulted in the evaluation and care of this patient. The physician did have a face to face encounter with the patient. This chart was documented by the indicated scribe, (Nash Schaefer Scribe) and accurately reflects the services I performed and decisions made by me, Avinash Melgar MD, as attested by the provider's signature.
[2018-07-04] MEDS ORDERED: LOVENOX SUBQ ONE (22:15)
[2018-07-04] MEDS ORDERED: HEPARIN 25,000 UNITS/D5W 25,000 UNIT/250 ML IV.SOLN IV SCH (23:45)
[2018-07-04] MEDS ORDERED: ZOFRAN PO PRN (23:54)
[2018-07-04] MEDS ORDERED: PHENERGAN PO PRN (23:54)
[2018-07-04] MEDS ORDERED: TYLENOL PO PRN (23:56)
[2018-07-05] MEDS ORDERED: NS 1,000 ML IV ONE (00:01)
[2018-07-05] MEDS ORDERED: DULCOLAX PR PRN (00:45)
[2018-07-05] MEDS ORDERED: COMPAZINE ONE (02:53)
[2018-07-05] MEDS: DILAUDID IV PRN ×5 (03:00→23:38)
[2018-07-05] MEDS: COMPAZINE PO SCH ×6 (03:21→21:27)
[2018-07-05 03:43] LABS: INR 1.3; PROTIME 17.2 Seconds (11.0-16.0)
[2018-07-05 06:18] LABS: BASO# 0.04 X1000 (0.0-0.2); BASO% 0.4 % (0.0-0.8); EOS# 0.02 X1000 (0.0-0.7); EOS% 0.2 % (0.0-10.0); HEMATOCRIT 32.8 % (37.0-47.0); HEMOGLOBIN 10.4 g/dL (12.0-16.0); IMM GRAN# 0.03 X1000 (0.0-0.04); IMM GRAN% 0.3 % (0.0-0.5); LYMPH# 1.72 X1000 (1.2-3.4); LYMPH% 17.9 % (20.5-51.1); MCH 28.3 PG (27-31); MCHC 31.7 g/dL (33-37); MCV 89.1 FL (81-99); MONO# 1.15 X1000 (0.11-0.59); MPV 11.3 FL (7.4-10.4); NEUT# 6.66 X1000 (1.4-6.5); NEUT% 69.2 % (42.2-75.2); PLT 277 X1000 (130-400); RBC 3.68 XMIL (4.2-5.4); RDW 18.7 % (11.5-14.5); WBC 9.62 X1000 (4.8-10.8)
[2018-07-05 06:53] LABS: AGAP 14; BUN 9 mg/dL (8-22); CALCIUM 8.3 mg/dL (8.8-10.2); CHLORIDE 95 mmol/L (98-107); COSMO 257; CREATININE 0.5 mg/dL (0.5-0.9); ESTIMATED GFR > 60; GLUCOSE 120 mg/dL (70-104); POTASSIUM 3.7 mmol/L (3.5-5.1); SODIUM 128 mmol/L (136-145); TCO2 19 mmol/L (25-35)
--- NOTE | 2018-07-05 07:34 | HISTORY AND PHYSICAL ---
CHIEF COMPLAINT: Constipation. HISTORY OF PRESENT ILLNESS: This is an unfortunate 53-year-old female who has chronic constipation related to narcotic use. She was apparently given Lomotil at Dr. Ojeda's office which caused further diarrhea. She has a past medical history of right colon cancer with multiple positive lymph nodes. She had her port taken out around 4 weeks ago and has not had chemotherapy since that time. From what I understand, she underwent antibiotic therapy by Dr. Horacio Rangel related to her port infection. In the emergency room, CT of her abdomen and pelvis showed interval development of a large amount of ascites. She had had a small amount of ascites previously and also development of a deep venous thrombosis in the right common femoral vein and superficial femoral vein as well as constipation. The patient received a mg/kg of Lovenox in the emergency room. We will start on a heparin drip per protocol at this time as patient may need a paracentesis. We will defer to the primary team and Dr. Low Ojeda if this can wait until DVT resolves. She will be admitted for further evaluation and treatment. PAST MEDICAL HISTORY: 1. Right colon cancer with multiple positive nodes. 2. Bipolar disorder. 3. Pre diabetes. 4. Irritable bowel syndrome. 5. Hypothyroidism. 6. Hyperlipidemia. 7. Chronic constipation. 8. Small bowel obstruction. 9. Mild hyponatremia. PREVIOUS SURGICAL HISTORY: 1. Exploratory laparoscopy. 2. Right colectomy with ileal transverse colostomy. 3. Appendectomy. 4. Cholecystectomy. 5. Hysterectomy. ALLERGIES: To [place], amoxicillin, Keflex, Motrin, latex, Xylocaine, Lorabid, Risperdal and Fentanyl. FAMILY HISTORY: Father at age 42 from a myocardial infarction. Mother had valve replacement. SOCIAL HISTORY: Lives with a boyfriend. Smokes a pack of cigarettes a day. Occasional alcohol. Daily marijuana user, only in small amounts. Has been disabled around 15 years related to bipolar disorder. HOME MEDICATIONS: 1. Dilaudid 2 mg p.o. q.3 p.r.n. 2. Oxycodone 5 mg p.o. q.6-8 p.r.n. 3. Ultram 50 mg p.o. q.8-12 p.r.n. 4. Xanax 2 mg p.o. t.i.d. 5. Docusate sodium 100 mg p.o. at bedtime. 6. Furosemide 20 mg p.o. daily. 7. Neurontin 100 mg p.o. t.i.d. 8. Morphine sulfate 15 mg p.o. b.i.d. 9. Omeprazole 20 mg p.o. daily. 10.Zofran 4 mg p.o. q.4 p.r.n. 11.Compazine 10 mg p.o. q.4 p.r.n. 12.Phenergan 25 mg p.o. q.6 p.r.n. REVIEW OF SYSTEMS: A 14 point review of systems conducted with the patient. She complains primarily of abdominal pain and lack of bowel movement. She has mild shortness of breath. All other systems were reviewed and were negative. PHYSICAL EXAMINATION: VITAL SIGNS: Temp 98.1 degrees, pulse 106, respirations 16, blood pressure 109/78, oxygen saturation 97% on room air. GENERAL: Unfortunate 53-year-old female lying in the ER stretcher, answers all questions appropriately. Alert and oriented x3, is in no acute distress. HEENT: Head is atraumatic, normocephalic. Pupils equal, round and reactive to light. Extraocular eye movements intact. Conjunctivae pink. Oral mucosa is dry. NECK: Supple. No JVD. No thyromegaly. Trachea is midline. CARDIOVASCULAR: S1, S2 appreciated. No murmurs, gallops, rubs. LUNGS: Clear to auscultation bilaterally. No rhonchi, wheezes, rales. Symmetric rise and fall of respirations. ABDOMEN: Somewhat distended but soft. Tender to palpation all 4 quadrants. Positive fluid wave test. Bowel sounds present but hypoactive all 4 quadrants. No pulsatile mass. No organomegaly. EXTREMITIES: No cyanosis, clubbing or edema. 1+ pedal pulses bilaterally. NEUROLOGICAL: Alert and oriented x3. Cranial nerves 2-12 grossly intact. DIAGNOSTIC DATA: CT of the abdomen and pelvis showed interval increase of ascites most prominent in the left lower quadrant, constipation and development of a DVT of the right common femoral vein and superficial femoral vein. LABORATORY DATA: WBC 8.37, hemoglobin 10.3, hematocrit 33.6, platelet count 250,000. Sodium 130, potassium 3.9, chloride 92, carbon dioxide 24, BUN 9, creatinine 0.6, glucose 92. ASSESSMENT AND PLAN: 1. Right-sided DVT. We will start on heparin drip at this time as patient may need paracentesis. Heparin can easily be reversed for the procedure. She will need to be started on an oral agent for discharge. Defer to primary team when it is best for this. We will get venous ultrasound to rule out clot burden on the opposite leg as well. 2. Right colon cancer on chemotherapy. I believe her last dose was around 4 weeks ago. We will consult Dr. Low Ojeda. 3. Constipation. We will give p.r.n. suppositories, add MiraLAX, continue docusate sodium. 4. Mild hyponatremia. We will continue normal saline, recheck laboratory data. 5. Bipolar disorder. I do not see that she takes any medications for this. 6. Fluid volume depletion. As noted saline was given in the emergency room and continue on the medical floor. 7. Port-a-Cath infection. I believe that she was finishing up daptomycin at home and followed by Dr. Horacio Rangel. Consult Dr. Rangel. Further recommendations per patient's clinical course. Dictated by MARISSA Molina for [place] Vanegas MD cc: MARISSA Molina MD Leroy F. Harris, MD Sammy Becdach, MD Patient seen and examined by me. Has a history of colon ca. presenting with constipation. Ct abdomen notes ascites. Patient also diagnosed with dvt right CF/SF veins. Plan anticoagulation for dvt, paracentesis for ascites, oncology eval. Dr. Vanegas. [facility]
[2018-07-05] MEDS: XANAX PO SCH ×3 (10:21→21:27)
[2018-07-05] MEDS: PRILOSEC PO SCH (10:21)
[2018-07-05] MEDS: NEURONTIN PO SCH ×3 (10:22→21:27)
[2018-07-05] MEDS: LASIX PO SCH (10:22)
[2018-07-05] MEDS: MIRALAX PO SCH ×2 (10:22→21:27)
--- NOTE | 2018-07-05 11:14 | INFECTIOUS DISEASE PROGRESS NO ---
DATE: 07/05/2018 PRESENT ILLNESS: The patient has a Staphylococcus bacteremia for which she has been getting daptomycin intravenously. MEDICATION: The patient has had 10 days' worth of daily daptomycin and needs 4 more days to complete the patient's treatment of Staphylococcus bacteremia. PHYSICAL EXAMINATION: Vital Signs: Temperature is 98 degrees, pulse 100, respirations 16, blood pressure 110/70. General: This is a malnourished ill-appearing middle-aged female. She is in no acute distress. Head, Eyes, Ears, Nose, and Throat: She can hear my spoken words and see near objects. She does not have any white patches on her tongue. Neck: The patient does not have any pain when she turns her neck. Thorax: Patient has a subclavian catheter present on the right side. The site is not erythematous or purulent. Lungs: Clear to auscultation. Cardiovascular: Heart rate is regular. Abdomen: Soft, but distended with fluid. It is not tender to light palpation. Neurologic: Patient is lethargic. She can move her extremities. There is no tremor. Integument: No rash noted. DIAGNOSTIC STUDIES: CT scan of the abdomen and pelvis shows a large amount of ascites, a right femoral vein deep venous thrombosis, and constipation. The patient's CBC shows a white count of 9620, hemoglobin 10.4, platelet count is 277,000. Creatinine is 0.5, GFR is greater than 60. ASSESSMENT AND PLAN: Patient has received 10 days of treatment for her Staphylococcus bacteremia, and I will treat her for 4 more days of treatment of the bacteremia to complete a 2-week treatment course. The antibiotic she was on at home is daptomycin which we will continue to use in the hospital. COMORBIDITIES: Unfortunately, the patient has colon cancer with multiple metastatic lesions. cc: Horacio Rangel MD [facility]
[2018-07-05] MEDS ORDERED: RELISTOR SUBQ ONE (15:01)
[2018-07-05] MEDS ORDERED: SODIUM CHLORIDE 0.9% INJ ONE (15:30)
[2018-07-05] MEDS ORDERED: SYNTHROID IV ONE (15:30)
--- NOTE | 2018-07-05 15:57 | PROGRESS NOTE ---
DATE: 07/05/2018 SUBJECTIVE: Today, Ms. Garcia was pretty much extremely drowsy. I understand she was given Dilaudid by the time I saw her. There were 2 family members at the bedside at the time of the encounter. OBJECTIVE: The patient's blood pressure is 92/66, pulse of 103, respirations 15 and temperature 99.1 degrees.General: Ms. Garcia is 53-year-old female. She was in bed. She looks extremely emaciated and ill-looking. HEENT: Mucosa is pink and moist. Anicteric. Acyanotic. Neck: Supple. Chest: Air entry was bilaterally reduced. There are some crackles in the posterior lung andujar. Cardiovascular: Regular rate and rhythm. No murmurs, no rubs, no gallops. Gastroenterology: Abdomen is soft and is extremely distended and somehow tight. There is dullness in the percussion of the abdominal wall. There was no tenderness. There was also positive fluid shift. There is an old infraumbilical surgical scar noted. HULL SORTER: Patient was drowsy, but was easily arousable and follows basic commands for the most part. LABORATORY DATA: WBC is 9.62, hemoglobin is 10.4, and platelet count of 277,000. Chemistry is also reviewed. Sodium is 128. Rest of chemistry is unremarkable. TSH is 8.32. IMAGING STUDIES: A CT scan of the abdomen and pelvis done this morning showed interval development of a large amount of ascites most predominantly in the left lower quadrant. There is constipation and development of DVT in the right common femoral vein and superficial femoral vein. CURRENT MEDICATIONS: Have all been reviewed. ASSESSMENT: 1. 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 2. 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 This was tapped on the past admission. It appears it will need to be tapped again. However, we would wait for the bowel to move before we proceed with that. 3. History of hypothyroidism. TSH is elevated. We will restart her back on her thyroid supplementation. 4. Severe protein calorie malnutrition. 5. Chronic pain syndrome. 6. Newly diagnosed right common femoral and superficial femoral artery DVTs. The patient has been started on heparin drip until she is more hemodynamically stable and, then we can switch this. 7. Recently treated for a Staphylococcus epidermidis bacteremia. She has been restarted back on her daptomycin. 8. Anemia related to chronic illness. PLAN: So in general, Ms. Garcia has end-stage colon cancer with metastasis to the peritoneum which is complicated with malignant ascites. She is back because of obstipation, which we think is probably related somewhat to combination of narcotic gut, and the peritoneal seeding from the cancer. Her performance status is remarkably poor, and her prognosis also is extremely poor. We will continue with the bowel prep. We will start her also on Movantik and re-evaluate her tomorrow. I have talked extensively today with the caregiver and another female family friend who was at the bedside at the time of the encounter. cc: Cooper Connelly MD
[2018-07-05] MEDS ORDERED: HEPARIN 25,000 UNITS/D5W 25,000 UNIT/250 ML IV.SOLN IV SCH (16:15)
[2018-07-05] MEDS: CUBICIN 400 MG in NS 100 ML IV SCH (18:10)
[2018-07-05] MEDS: COLACE PO SCH (21:27)
[2018-07-05] MEDS: LACTULOSE PO SCH (21:27)
[2018-07-05] MEDS: ZOFRAN IV PRN (23:19)
[2018-07-06] MEDS: HEPARIN 25,000 UNITS/D5W 25,000 UNIT/250 ML IV.SOLN IV SCH (03:18)
[2018-07-06] MEDS: DILAUDID IV PRN ×3 (03:19→20:36)
[2018-07-06] MEDS: COMPAZINE PO SCH ×6 (03:19→20:37)
[2018-07-06 05:35] LABS: BASO# 0.03 X1000 (0.0-0.2); BASO% 0.4 % (0.0-0.8); EOS# 0.01 X1000 (0.0-0.7); EOS% 0.1 % (0.0-10.0); HEMATOCRIT 29.6 % (37.0-47.0); HEMOGLOBIN 9.1 g/dL (12.0-16.0); IMM GRAN# 0.02 X1000 (0.0-0.04); IMM GRAN% 0.3 % (0.0-0.5); LYMPH# 0.94 X1000 (1.2-3.4); LYMPH% 12.7 % (20.5-51.1); MCH 27.6 PG (27-31); MCHC 30.7 g/dL (33-37); MCV 89.7 FL (81-99); MONO# 0.97 X1000 (0.11-0.59); MONO% 13.1 % (1.7-9.3); MPV 12.1 FL (7.4-10.4); NEUT# 5.42 X1000 (1.4-6.5); NEUT% 73.4 % (42.2-75.2); PLT 222 X1000 (130-400); RDW 18.7 % (11.5-14.5); WBC 7.39 X1000 (4.8-10.8)
[2018-07-06] MEDS: MOVANTIK PO SCH (06:11)
[2018-07-06] MEDS: PRILOSEC PO SCH (06:11)
[2018-07-06] MEDS: SYNTHROID IV SCH (06:12)
[2018-07-06] MEDS: SODIUM CHLORIDE 0.9% INJ PRN (06:12)
[2018-07-06 06:13] LABS: AGAP 13; ALBUMIN 2.5 g/dL (3.5-5.0); BUN 8 mg/dL (8-22); CALCIUM 7.5 mg/dL (8.8-10.2); CHLORIDE 99 mmol/L (98-107); COSMO 268; CREATININE 0.5 mg/dL (0.5-0.9); ESTIMATED GFR > 60; GLUCOSE 126 mg/dL (70-104); PHOSPHORUS 4.6 mg/dL (2.7-4.5); POTASSIUM 3.7 mmol/L (3.5-5.1); SODIUM 134 mmol/L (136-145); TCO2 22 mmol/L (25-35)
--- NOTE | 2018-07-06 07:57 | INFECTIOUS DISEASE PROGRESS NO ---
DATE: 07/06/2018 PRESENT ILLNESS: The patient has a Staph bacteremia. MEDICATIONS: This is the eleventh day of treatment with daptomycin. I plan to treat her for 3 more days to complete her treatment for the bacteremia. PHYSICAL EXAMINATION: Vital Signs: Temperature is 97.7 degrees, pulse 111, respirations 13, blood pressure 96/66. General: This is a malnourished and ill-appearing, middle-aged female. She is in no acute distress. Head/eyes/ears/nose/throat: She can hear my spoken words and see near objects. She does not have any white coating on her tongue. Neck: She does not have any pain when she turns her head. Thorax: The patient has a right-sided subclavian catheter. The site is not erythematous or purulent. Lungs: Clear to auscultation. Cardiovascular: Heart rate is rapid and regular. Abdomen: The patient's abdomen is distended. It is not tender to light palpation. Neurologic: The patient continues to be lethargic. She can move her extremities. There is no tremor. Integument: No rash. Extremities: The patient has swelling of the right leg where she has a deep venous thrombosis. LAB AND X-RAY: There are no new radiographic studies today. The CBC shows a white count of 7.39, hemoglobin 9.1, and platelet count of 222,000. Creatinine 0.5. GFR is greater than 60. ASSESSMENT AND PLAN: The patient has a Staphylococcus bacteremia. She has completed 11 days of therapy, and I am going to treat her for 3 more to complete a 2-week treatment course. I am going to order a creatinine kinase for tomorrow. COMORBIDITIES: The patient has colon cancer with multiple local and metastatic lesions. cc: Horacio Rangel MD
[2018-07-06] MEDS: MIRALAX PO SCH ×2 (09:39→20:37)
[2018-07-06] MEDS: LACTULOSE PO SCH ×2 (09:39→20:37)
[2018-07-06] MEDS: NEURONTIN PO SCH ×3 (09:40→20:37)
[2018-07-06] MEDS: LASIX PO SCH (09:40)
[2018-07-06] MEDS: XANAX PO SCH ×3 (09:40→20:36)
--- NOTE | 2018-07-06 14:37 | PROGRESS NOTE ---
DATE: 07/06/2018 SUBJECTIVE: This morning Ms. Garcia refers to be hurting. She says she had 2 good bowel movements yesterday and 1 today. She also did say she has been hurting a lot. Ms. Garcia this morning also said whatever that she said yesterday about end of life issues was because she was out of her mind, and that for now she still wants to pursue aggressive therapy for her cancer. OBJECTIVE: Vital signs: Blood pressure is 124/85, pulse is 117, respiration is 20, temperature 97.7 degrees. General: Ms. Garcia is a 53-year-old female. She is in bed. She looks emaciated and moribund. HEENT: Mucosa is slightly dry. Anicteric. Acyanotic. Neck: Supple. Chest: Air entry is bilaterally reduced. Some crackles in the posterior lung andujar. Cardiovascular: Regular rate and rhythm. No murmurs, no rubs, no gallops. GI: Abdomen is soft, extremely distended. There is some fluid shift dullness on percussion. There is also some edema on the lateral aspect of the abdominal wall. Extremities: About 2+ pedal edema. BARREL ASSEMBLER: Patient is slightly drowsy, but easily arousable and sustaining adequate conversation. LABORATORY DATA: 1. WBC is 7.39, hemoglobin is 9.1, platelet count of 222. 2. Sodium is 134, potassium is 3.7, chloride 99, calcium is 7.5, phosphorus is 4.6. CURRENT MEDICATIONS: Have all been reviewed. ASSESSMENT: 1. 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 The patient has had 2 bowel movements. We are going to continue with bowel regimen. 2. 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 We are going to get Interventional Radiology to do an ultrasound-guided paracentesis. 3. Hypothyroidism. Will continue with thyroid supplementation. 4. Severe protein calorie malnutrition. The patient will be started on some nutritional support. We will also get Clinimix and lipid infusion going and dietitian will follow. 5. Newly diagnosed right common femoral and superficial femoral venous deep vein thromboses. The patient is currently on a heparin drip. This will be transitioned to something oral when she is more stable. Recent Staphylococcus epidermidis bacteremia. Patient is on daptomycin. Infectious Disease is on board. 1. Anemia of chronic illness. 2. Chronic pain. Will continue also on the narcotics. 3. Generalized weakness and deconditioning with poor performance status. Ms. Garcia today refers that she does not want any hospice discussion, and that she wants full therapeutic care and interventions for her advanced colon cancer with metastasis to the peritoneum. We are going to start her on IV nutritional support, as well as oral supplements. We will get IR to tap the abdominal fluid. We will stop the heparin 4 to 6 hours before the tap, and we will send the fluid for analysis. We will continue with the current bowel regimen and also continue with pain management. cc: Cooper Connelly MD
[2018-07-06] MEDS: CLINIMIX E 4.25%-5% SOLUTION 1,000 ML IV SCH (15:35)
[2018-07-06] MEDS: LIPOSYN 20% 250 ML IV SCH (15:35)
[2018-07-06 17:20] LABS: INR 1.12; PROTIME 15.3 Seconds (11.0-16.0)
[2018-07-06] MEDS: CUBICIN 400 MG in NS 100 ML IV SCH (18:20)
[2018-07-06] MEDS: COLACE PO SCH (20:37)
[2018-07-07] MEDS: DILAUDID IV PRN ×3 (01:16→13:31)
[2018-07-07] MEDS: COMPAZINE PO SCH ×6 (01:16→20:45)
[2018-07-07] MEDS: HEPARIN 25,000 UNITS/D5W 25,000 UNIT/250 ML IV.SOLN IV SCH (05:43)
[2018-07-07] MEDS: SYNTHROID IV SCH ×2 (05:46→06:44)
[2018-07-07] MEDS: SODIUM CHLORIDE 0.9% INJ PRN (05:47)
[2018-07-07] MEDS: PRILOSEC PO SCH ×2 (05:47→06:43)
[2018-07-07] MEDS: CLINIMIX E 4.25%-5% SOLUTION 1,000 ML IV SCH ×2 (05:48→21:55)
[2018-07-07] MEDS: MOVANTIK PO SCH ×2 (05:51→06:43)
[2018-07-07 06:29] LABS: AGAP 15; ALBUMIN 2.6 g/dL (3.5-5.0); BUN 12 mg/dL (8-22); CALCIUM 8.6 mg/dL (8.8-10.2); CHLORIDE 93 mmol/L (98-107); COSMO 259; CREATININE 0.6 mg/dL (0.5-0.9); ESTIMATED GFR > 60; GLUCOSE 145 mg/dL (70-104); PHOSPHORUS 4.4 mg/dL (2.7-4.5); POTASSIUM 3.8 mmol/L (3.5-5.1); SODIUM 128 mmol/L (136-145); TCO2 20 mmol/L (25-35)
[2018-07-07] MEDS: LACTULOSE PO SCH ×2 (08:37→20:45)
[2018-07-07] MEDS: ZOFRAN IV PRN ×2 (08:37→23:18)
[2018-07-07] MEDS: XANAX PO SCH ×3 (08:37→21:54)
[2018-07-07] MEDS: MIRALAX PO SCH ×2 (08:37→20:45)
[2018-07-07] MEDS: LASIX PO SCH (08:37)
[2018-07-07] MEDS: NEURONTIN PO SCH ×3 (08:37→20:44)
--- NOTE | 2018-07-07 09:15 | INFECTIOUS DISEASE PROGRESS NO ---
DATE: 07/06/2018 PRESENT ILLNESS: The patient has a Staph bacteremia. MEDICATION: This is the 13th day of treatment with daptomycin. Her last dose of daptomycin will be tomorrow and the antibiotic will be discontinued after the dose tomorrow. PHYSICAL EXAMINATION: Vital Signs: Temperature is 98.7 degrees, pulse 130, respirations 19, blood pressure 107/83. General: This is an ill-appearing, malnourished, middle-aged female. She is in no acute distress. Head/eyes/ears/nose/throat: There is no drainage coming from the nose or ears. I did not see any white patches in her mouth. Neck: When I turned her head, there was no pain in her neck. Lungs: Clear to auscultation. Cardiovascular: Heart rate is regular and rapid. Thorax: Patient has a right-sided subclavian triple lumen catheter in place. The site is not erythematous or purulent. Abdomen: Distended and firm. It is not tender to light palpation. Neurologic: Patient is lethargic. She was arousable and she did move her extremities to request. Extremities: Both legs are edematous but the right leg is a little bit larger than the left because that is where the deep venous thrombosis was. Integument: No rash noted. LAB AND X-RAY: There was no x-ray finding. The only lab finding was a CK of 51. ASSESSMENT AND PLAN: The patient has Staphylococcus bacteremia. As mentioned above, tomorrow is her last dose and then the daptomycin has been ordered to be discontinued after that dose. I am signing off of seeing the patient, but I am available to see her on a p.r.n. basis. COMORBIDITIES: Patient has colon cancer with both multiple local and metastatic lesions. cc: Horacio Rangel MD [facility]
--- NOTE | 2018-07-07 10:26 | Diag Imaging Result Doc PS360 ---
US ABD PARACENTESIS W S/I - 07/07/2018 INDICATION: malignant ascites COMPARISON: None FINDINGS: The risks and benefits of the procedure were discussed with the patient. All questions were answered. Written and verbal consent was obtained. Ultrasound scanning demonstrated ascites. Overlying skin was prepped and draped in sterile fashion. Anesthesia was achieved with injection of 10 cc 1% lidocaine. The paracentesis catheter was advanced until the return of ascites fluid. 5.8 L was aspirated. The catheter was withdrawn intact. The patient reported no symptoms from the procedure. IMPRESSION: Successful and uncomplicated ultrasound-guided paracentesis. Electronically signed by Erick Gil 07/07/2018 10:24 AM
[2018-07-07 11:06] LABS: URINE SOURCE CATH
[2018-07-07 11:15] LABS: BILIRUBIN URINE NEGATIVE (NEGATIVE); BLOOD URINE NEGATIVE (NEGATIVE); COLOR YELLOW; GLUCOSE URINE NEGATIVE (NEGATIVE); KETONE URINE NEGATIVE (NEGATIVE); LEUKOCYTES URINE NEGATIVE (NEGATIVE); NITRITE URINE NEGATIVE (NEGATIVE); PROTEIN URINE 30 mg/dL (NEGATIVE); TURBIDITY URINE CLEAR (CLEAR); UROBILINOGEN URINE 4 mg/dL (NORMAL)
[2018-07-07 11:16] LABS: UR EPITHELIAL CELLS <10 /HPF (<10); URINE BACTERIA NEGATIVE /HPF; URINE RBC <10 /HPF (<10); URINE WBC <10 /HPF (<10)
[2018-07-07 11:24] LABS: URINE CASTS NONE SEEN; URINE CRYSTALS NONE SEEN; URINE SMALL ROUND CELLS NONE SEEN; URINE YEAST NONE SEEN
--- NOTE | 2018-07-07 11:38 | PROGRESS NOTE ---
DATE: 07/07/2018 SUBJECTIVE: This morning, Ms. Garcia refers to be doing fairly okay. She looks remarkably drowsy. I understand she was given Dilaudid earlier on today. Ms. Garcia also went for paracentesis under ultrasound guidance. From the note, 5.8 was aspirated. OBJECTIVE: Her current vitals show blood pressure of 128/83, pulse was 128, respirations 16, temperature is 98.2. General: Ms. Garcia is a 53-year-old female. She is in bed. She does not seem to be in any cardiopulmonary distress. Mucosa is pink, anicteric and acyanotic. Neck is supple. Chest: Air entry is bilaterally reduced. Cardiovascular: Slightly tachycardic but regular. No murmurs, no rubs, no gallops. GI: Abdomen is soft. It is less distended than yesterday. There are palpable nodulations in the lower abdomen. Extremities: About 2+ pedal edema. MANAGER CATH LAB: The patient is drowsy but easily arousable. DIAGNOSTIC DATA: Chemistries showed sodium 128, potassium 2.8, chloride 93, bicarb is 20, glucose 145. ASSESSMENT: 1. Severe constipation/obstipation, likely due to narcotics on top of peritoneal carcinomatosis. The patient continues to be on bowel regimen. She is having adequate bowel movement. 2. 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 The patient is status post paracentesis this morning with 5.8 L removed. 3. Hypothyroidism. We will continue with her supplement. 4. Severe protein calorie malnutrition. The patient had been started on Clinimix with lipid infusion, and force adjustment supervisor is onboard. 5. Newly diagnosed right femoral vein DVT. We will continue with anticoagulation. Heparin drip will be discontinued since the procedure has already been completed. We will start the patient on therapeutic Lovenox. 6. Recently diagnosed Staphylococcus epidermidis bacteremia. Infectious Disease is onboard. Subsequent blood cultures have been negative. 7. Anemia of chronic disease. 8. Chronic pain syndrome. We will continue with management. 9. Generalized weakness and deconditioning associated with extremely poor performance status. We will continue with physical therapy. PLAN: In general, I think Ms. Garcia's abdominal complaints and symptoms have been addressed. She is having adequate bowel movement. Ascites has also been drained. I think her general prognosis continues to be remarkably poor because of her underlying malignancy. We will continue with nutritional support, pain management and await further recommendations from the family members. cc: Cooper Connelly MD
[2018-07-07 12:02] LABS: BODY FLUID SOURCE PERITONEAL FLUID; WBC BF 188 /cumm
[2018-07-07 13:00] LABS: MONOS 81 %; POLYS 19 %
[2018-07-07] MEDS: LOVENOX SUBQ SCH (13:27)
[2018-07-07 13:28] LABS: TOTAL PROT BODY FLUID 3.4 g/dL
[2018-07-07 13:31] LABS: ALBUMIN BODY FLUID 1.5 g/dL
[2018-07-07] MEDS: LIPOSYN 20% 250 ML IV SCH (14:36)
[2018-07-07] MEDS: CUBICIN 400 MG in NS 100 ML IV SCH (17:28)
[2018-07-07] MEDS: MORPHINE IR PO PRN (20:44)
[2018-07-07] MEDS: COLACE PO SCH (20:45)
[2018-07-08] MEDS ORDERED: CALMOSEPTINE OINTMENT TOP PRN (00:33)
[2018-07-08] MEDS: COMPAZINE PO SCH ×6 (00:53→21:21)
[2018-07-08] MEDS: DILAUDID IV PRN ×6 (00:53→19:10)
[2018-07-08] MEDS: MORPHINE IR PO PRN (04:05)
[2018-07-08] MEDS: SYNTHROID IV SCH ×2 (05:56→06:11)
[2018-07-08] MEDS: LOVENOX SUBQ SCH ×2 (05:56→17:29)
[2018-07-08] MEDS: MOVANTIK PO SCH ×2 (05:56→06:10)
[2018-07-08] MEDS: PRILOSEC PO SCH (06:11)
[2018-07-08 06:18] LABS: BASO# 0.01 X1000 (0.0-0.2); BASO% 0.1 % (0.0-0.8); EOS# 0.01 X1000 (0.0-0.7); EOS% 0.1 % (0.0-10.0); HEMATOCRIT 31.1 % (37.0-47.0); HEMOGLOBIN 9.8 g/dL (12.0-16.0); IMM GRAN# 0.02 X1000 (0.0-0.04); IMM GRAN% 0.2 % (0.0-0.5); LYMPH# 1.15 X1000 (1.2-3.4); LYMPH% 12.9 % (20.5-51.1); MCH 27.9 PG (27-31); MCHC 31.5 g/dL (33-37); MCV 88.6 FL (81-99); MONO# 1.01 X1000 (0.11-0.59); MONO% 11.3 % (1.7-9.3); MPV 11.9 FL (7.4-10.4); NEUT# 6.73 X1000 (1.4-6.5); NEUT% 75.4 % (42.2-75.2); PLT 212 X1000 (130-400); RBC 3.51 XMIL (4.2-5.4); WBC 8.93 X1000 (4.8-10.8)
[2018-07-08 06:49] LABS: AGAP 11; ALB/GLOB RATIO 0.5; ALBUMIN 1.9 g/dL (3.5-5.0); ALKALINE PHOSPHATASE 80 U/L (32-104); BUN 16 mg/dL (8-22); CALCIUM 8.3 mg/dL (8.8-10.2); CHLORIDE 95 mmol/L (98-107); COSMO 259; CREATININE 0.4 mg/dL (0.5-0.9); ESTIMATED GFR > 60; GLUCOSE 119 mg/dL (70-104); GOT 14 U/L (10-30); GPT 6 U/L (10-36); POTASSIUM 3.8 mmol/L (3.5-5.1); SODIUM 128 mmol/L (136-145); TCO2 22 mmol/L (25-35); TOTAL BILIRUBIN 0.47 mg/dL (0.20-1.00); TOTAL PROTEIN 5.6 g/dL (6.3-8.3)
[2018-07-08] MEDS ORDERED: SAMSCA PO ONE (09:03)
[2018-07-08] MEDS: XANAX PO SCH ×2 (09:10→17:18)
[2018-07-08] MEDS: LACTULOSE PO SCH (09:11)
[2018-07-08] MEDS: LASIX PO SCH (09:11)
[2018-07-08] MEDS: NEURONTIN PO SCH ×3 (09:11→21:20)
[2018-07-08] MEDS: MIRALAX PO SCH ×2 (09:11→21:20)
[2018-07-08] MEDS: CLINIMIX E 4.25%-5% SOLUTION 1,000 ML IV SCH (12:02)
[2018-07-08] MEDS: LIPOSYN 20% 250 ML IV SCH ×2 (12:03→14:12)
--- NOTE | 2018-07-08 14:33 | PROGRESS NOTE ---
DATE: 07/08/2018 SUBJECTIVE: This morning Ms. Garcia looks slightly better. She was a little bit more aware and communicating. She did tell me that she did not want to and that she wanted to be full code. I am also aware that last night she did notify the nurses that she wanted to be on hospice. However, this morning it looks like she has changed her mind. OBJECTIVE: Vital signs: Blood pressure is 104/70, pulse of 110, respirations 18, temperature 98.4. The patient was saturating 97% on room air. General exam: Ms. Garcia is a 53-year-old female. She was in bed. She was not in any cardiopulmonary distress. She looks chronically ill, cachectic. HEENT: Mucosa is pink and moist. Anicteric. Acyanotic. Neck: Supple. Chest: Air entry is bilaterally reduced. Cardiovascular: Regular rate and rhythm. GI: Abdomen is soft, distended, minimally tender in the lower abdomen. There are some nodulations to palpation in the lower abdomen. Extremities: About 2+ pedal edema. OUTER DIAMETER GRINDER TOOL: Patient is more awake, follows some basic commands and was conversational. She will go back to sleep intermittently, but she is easily arousable. LABORATORY DATA: WBC is 8.93, hemoglobin is 9.8, platelet count 212. Chemistry is also reviewed; sodium is 128. Rest of chemistry is unremarkable. IMAGING STUDIES: No imaging studies today. CURRENT MEDICATIONS: Have all been reviewed as well. ASSESSMENT: 1. Severe constipation/obstipation on presentation secondary to narcotic gut on top of peritoneal carcinomatosis. The patient is on bowel regimen. She continues to make bowel movements on a daily basis. 2. 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 Patient is status post large volume paracenteses; 5.8 liters was removed yesterday. 3. Hypothyroidism. Will continue with supplementation. 4. Severe protein calorie malnutrition. We will continue the Clinimix with lipid infusion. Dietitian is also on board. The patient also gets oral supplements. 5. Newly diagnosed right femoral vein deep vein thrombosis. Will continue with anticoagulation. 6. Recently diagnosed Staphylococcus epidermidis bacteremia. Infectious Disease is on board. Patient continues to be on daptomycin. Subsequent blood cultures have been negative. 7. Anemia of chronic disease. Hemoglobin and hematocrit is stable. 8. Chronic pain syndrome. 9. Generalized weakness and deconditioning. Physical therapy will be consulted. 10. Extremely poor performance status noted. PLAN: So, in general, Ms. Garcia's condition continues to be remarkably critical. Her prognosis is poor. She has metastatic colon cancer to the peritoneum complicated with peritoneal carcinomatosis, malignant ascites, generalized weakness and poor performance status. We are going to continue with the Clinimix with lipid infusion. Continue with also the medications, and continue to discuss the end of life issues with her and the family members. cc: Cooper Connelly MD
[2018-07-08] MEDS: ZOFRAN IV PRN ×2 (15:52→20:36)
[2018-07-08] MEDS ORDERED: CUBICIN 400 MG in NS 100 ML IV SCH (16:00)
[2018-07-08] MEDS: CUBICIN 400 MG in NS 100 ML IV SCH (17:28)
[2018-07-08] MEDS ORDERED: XANAX PO PRN (21:00)
[2018-07-08] MEDS: COLACE PO SCH (21:20)
[2018-07-09] MEDS: DILAUDID IV PRN ×4 (00:24→11:25)
[2018-07-09] MEDS: CLINIMIX E 4.25%-5% SOLUTION 1,000 ML IV SCH (00:25)
[2018-07-09] MEDS: COMPAZINE PO SCH ×3 (00:55→10:39)
[2018-07-09] MEDS: PRILOSEC PO SCH (06:22)
[2018-07-09] MEDS: LOVENOX SUBQ SCH (06:22)
[2018-07-09] MEDS: MOVANTIK PO SCH (06:22)
[2018-07-09] MEDS: SYNTHROID IV SCH (06:23)
[2018-07-09] MEDS: MORPHINE IR PO PRN ×2 (06:36→10:39)
[2018-07-09 07:28] VITALS: BP 103/64
[2018-07-09 07:49] LABS: AGAP 10; BUN 15 mg/dL (8-22); CALCIUM 8.5 mg/dL (8.8-10.2); CHLORIDE 98 mmol/L (98-107); COSMO 267; CREATININE 0.4 mg/dL (0.5-0.9); ESTIMATED GFR > 60; GLUCOSE 125 mg/dL (70-104); PHOSPHORUS 4.3 mg/dL (2.7-4.5); POTASSIUM 4.1 mmol/L (3.5-5.1); SODIUM 132 mmol/L (136-145); TCO2 24 mmol/L (25-35)
[2018-07-09] MEDS: ZOFRAN IV PRN (08:08)
[2018-07-09] MEDS ORDERED: SAMSCA PO ONE (08:28)
[2018-07-09] MEDS: LASIX PO SCH (10:38)
[2018-07-09] MEDS: NEURONTIN PO SCH (10:39)
[2018-07-09] MEDS: MIRALAX PO SCH (10:42)
--- NOTE | 2018-07-10 09:01 | DISCHARGE SUMMARY ---
ADMISSION DATE: 07/05/2018 DISCHARGE DATE: 07/09/2018 DISPOSITION: Home. FOLLOWUP: 1. DR. Nikkie Nicholson. 2. DR. Cummings. CONSULTATION DURING THIS ADMISSION: Infectious disease consulted. Patient was seen by DR. Rangel. INVASIVE PROCEDURES DONE DURING THIS ADMISSION: Abdominal paracentesis was done and 5.8 L were aspirated under ultrasound guidance by IR. IMAGING STUDIES OF SIGNIFICANCE: A CT scan of the abdomen and pelvis showed interval development of a large amount of ascites, most prominent in the left lower quadrant, constipation, development of deep venous thrombosis in the right common femoral and superficial femoral vein. ADMISSION DIAGNOSES: 1. Right-sided deep venous thrombosis. 2. Right colon cancer, on chemotherapy. 3. Constipation. 4. Bipolar. DIAGNOSES AT THE TIME OF DISCHARGE: 1. Severe constipation/obstipation on presentation secondary to narcotic gut on top of peritoneal carcinomatosis, improved. 2. 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 Patient is status post large volume paracenteses with 5.8 removed during this index hospitalization. 3. Hypothyroidism. Will continue with supplements. 4. Severe protein calorie malnutrition. 5. Newly diagnosed right femoral vein deep venous thrombosis. The patient is on anticoagulation. 6. Recently diagnosed Staphylococcus epidermidis bacteremia. Subsequent blood cultures negative. 7. Anemia of chronic disease. 8. Chronic pain syndrome. 9. Generalized weakness and deconditioning. 10. History of poor performance status. DISCHARGE MEDICATIONS: 1. Alprazolam 2 mg 3 times per day. 2. Zofran as needed. 3. Gabapentin 100 mg 3 times per day. 4. Morphine sulfate 50 mg b.i.d. 5. Phenergan 25 mg p.o. q.6 p.r.n. 6. Omeprazole 20 mg daily. 7. Tramadol 50 mg q.8. 8. Furosemide 20 mg daily. 9. Oxycodone. 10. MiraLAX 17 g b.i.d. 11. Movantik 12.5 p.o. 12. Levothyroxine 50 mcg daily. 13. Eliquis 5 mg b.i.d. 14. Megace 400 mg b.i.d. PRESENTING COMPLAINT: Constipation. HISTORY OF PRESENTING COMPLAINT: Ms. Garcia is a 53-year-old, female known to have a right-side colon cancer with metastasis to the peritoneum, complicated with ascites. Came in this time because of constipation. The patient was admitted for further medical care. HOSPITAL COURSE: Ms. Garcia was admitted to the medical floor. Was started on adequate bowel regimen. She started having bowel movement. Subsequently, it was also noted that she had massive ascites which was also drained under ultrasound guidance by IR with 5.8 removed. This was sent for analysis including cytology. However, we did know before that the fluid was malignant from previous paracenteses, cytology result. During the workup, it was also found that Ms. Garcia had an acute DVT in the right lower extremity. She was started on IV heparin and was transitioned to Lovenox, and will be discharged on Eliquis and will follow up with her fresh work wrapper layer/oncologist, DR. Cummings. During the hospital course, I understand that Ms. Garcia was found to have multiple vials of Ativan, multiple pills of morphine and oxycodone in her bag, and this was removed from her reach and was handed over to the pharmacy. I understand at some point that made her so mad and she had requested to be discharged because of that. In any case, after I spoke with her, she felt okay. This morning, however, she thinks she is doing a lot better and that she can be discharged and she will follow up with her primary care doctor. I think from a medical standpoint, she is stable. She is still extremely sick with poor performance status. I think she would benefit from hospice care. However, on multiple occasions, she said she wants to be Full Code and she does not want to talk about hospice. Ms. Garcia is therefore being discharged home under the care of her niece and the boyfriend who were both at the bedside at the time of the encounter. All the discharge instructions have been discussed with all of them and they all voiced understanding. Time spent for discharge is 38 minutes. cc: MD Nikkie Barry Dr., MD [facility] HOSPITALLeticia
--- NOTE | 2018-07-10 19:04 | Extremity Venous Study ---
PROCEDURE NAME: Venous U/S Bilateral Legs - 07/05/2018 SKELP PROCESSOR: Yanick. REQUESTING PHYSICIAN: Dr. Connelly. INDICATIONS: DVT noted on recent CT scan. Exam for comparison is CT scan on 07/04/2018. FINDINGS: The deep and superficial veins of the bilateral lower extremities were visualized. In the right lower extremity, at the common femoral extending into the superficial femoral and popliteal vein, there is extensive deep venous thrombosis. There is maintained patency here, but no obvious deep venous thrombosis noted in the left lower extremity. SUMMARY: Extensive deep venous thrombosis of the right lower extremity. These results were called to Dr. Connelly. cc: MD Davion Roy CRNP
== END 2018-07-09 12:34 | disposition home or self-care (01) | DRG 299 ==
LOC: ED 16:07 → SUATTDRO 07-05 01:58 → EDIPHOLD 07-05 01:58 → 3S 07-05 06:06 → 4N 07-08 17:51
PROVIDERS: ATTEND Internal Medicine
CPT/HCPCS: 49083; 74177; 80048; 80053; 80069; 81001; 82042; 82550; 83735; 84157; 84439; 84443; 85025; 85610; 85730; 87070; 87075; 89051; 93970; 96365; 96366; 96372; 96375; 96376; 99285; A9270; C9113; J0780; J0878; J1170; J1644; J1650; J2405; J7030; Q9967; S0164; S0183